=== PATIENT | male | born 1960 | race Caucasian/White ===

== ENCOUNTER 2019-02-23 03:22 | Emergency (ER) | payer SELFPAY ==
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
== END 2019-02-23 03:35 ==
LOC: MW.ED 03:22
DX: Z13.9 Encounter for screening, unspecified (principal)
CPT/HCPCS: 99283

== ENCOUNTER 2019-03-03 12:15 | Emergency (ER) | payer SELFPAY | END 2019-03-03 12:55 | disposition left against medical advice (07) | LOC: MW.ED 12:15 | DX: Z53.21 Procedure and treatment not carried out due to patient leaving prior to being seen by health care provider (principal) ==

== ENCOUNTER 2019-03-20 08:23 | Emergency (ER) | payer MEDICAID ==
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
== END 2019-03-20 09:32 | disposition home or self-care (01) ==
LOC: MW.ED 08:23
DX: I10 Essential (primary) hypertension (principal); E11.9 Type 2 diabetes mellitus without complications; F17.210 Nicotine dependence, cigarettes, uncomplicated; Z88.8 Allergy status to other drugs, medicaments and biological substances; Z79.4 Long term (current) use of insulin; Z79.899 Other long term (current) drug therapy
CPT/HCPCS: 82962; 99282

== ENCOUNTER 2019-04-26 21:13 | Emergency (ER) | payer MEDICAID ==
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
== END 2019-04-26 21:45 ==
LOC: MW.ED 21:13
DX: Z13.9 Encounter for screening, unspecified (principal); I10 Essential (primary) hypertension; E11.9 Type 2 diabetes mellitus without complications; E78.00 Pure hypercholesterolemia, unspecified; F25.9 Schizoaffective disorder, unspecified; F32.9 Major depressive disorder, single episode, unspecified; F41.9 Anxiety disorder, unspecified; Z79.4 Long term (current) use of insulin; Z79.899 Other long term (current) drug therapy; Z88.8 Allergy status to other drugs, medicaments and biological substances; Z53.29 Procedure and treatment not carried out because of patient's decision for other reasons
CPT/HCPCS: 99282

== ENCOUNTER 2019-04-27 14:23 | Emergency (ER) | payer MEDICAID ==
--- NOTE | 2019-04-27 15:40 | EDM.PDOC ---
ED HPI GENERAL MEDICAL PROBLEM - General Chief Complaint: Behavioral/Psych Stated Complaint: MENTAL HEALTH Time Seen by Provider: 04/27/19 15:32 Source of Information: Reports: Patient History Limitations: Reports: No Limitations - History of Present Illness INITIAL COMMENTS - FREE TEXT/NARRATIVE: HISTORY AND PHYSICAL: History of present illness: Patient is a 58-year-old male who presents to the ED today with law enforcement in court ordered transfer for concern of suicidal ideation with the plan. Patient states that he does have a plan and would follow forward with it today if he was if he was not in custody of law enforcement. Patient states he does not want to disclose his plan at this time. Patient states he has a history of schizoaffective disorder and major depression but ran out of medications 5 months ago and has not seen his provider to get refills. Patient states he has not made any suicide attempts in the past or at this time. Denies any other symptoms or concerns. Patient denies fever, chills, chest pain, shortness of breath, or cough. Denies headache, neck stiff ness, change in vision, syncope, or near syncope. Denies nausea, vomiting, abdominal pain, diarrhea, constipation, or dysuria. Has not noted any blood in urine or stool. Patient has been eating and drinking appropriately. Review of systems: As per history of present illness and below otherwise all systems reviewed and negative. Past medical history: As per history of present illness and as reviewed below otherwise noncontributory. Surgical history: As per history of present illness and as reviewed below otherwise noncontributory. Social history: See social history for further information Family history: As per history of present illness and as reviewed below otherwise noncontributory. Physical exam: General: Patient is alert, oriented, and in no acute distress. Patient sitting comfortably on exam table. HEENT: Atraumatic, normocephalic, pupils equal and reactive bilaterally, negative for conjunctival pallor or scleral icterus, mucous membranes moist, TMs normal bilaterally, throat clear, neck supple, nontender, trachea midline. No drooling or trismus noted. No meningeal signs. No hot potato voice noted. Lungs: Clear to auscultation, breath sounds equal bilaterally, chest nontender. Heart: S1S2, regular rate and rhythm without overt murmur Abdomen: Soft, nondistended, nontender. Negative for masses or hepatosplenomegaly. Negative for costovertebral tenderness. Pelvis: Stable nontender. Genitourinary: Deferred. Rectal: Deferred. Skin: Intact, warm, dry. No lesions or rashes noted. Extremities: Atraumatic, negative for cords or calf pain. Neurovascular unremarkable. Neuro: Awake, alert, oriented. Cranial nerves II through XII unremarkable. Cerebellum unremarkable. Motor and sensory unremarkable throughout. Exam nonfocal. Notes: [facility] is able to transport patient and has arranged a bed at [facility] in [place], [place]. Dr. La, [facility] consulted on patient and accepting of transfer. Diagnostics: CBC, CMP, UA, urine drug screen, EKG, TSH, magnesium, salicylate, acetaminophen , ethanol Therapeutics: None Impression: Suicidal ideation with plan Plan: 1. Transfer to [facility] to Dr. La Definitive disposition and diagnosis as appropriate pending reevaluation and review of above. Hip Pain Score (Numeric/FACES): 6 - Related Data Allergies Allergy/AdvReac Type Severity Reaction Status Date / Time midazolam [From Versed] Allergy Anaphylactic Verified 04/27/19 14:57 Shock Home Meds: Home Meds ARIPiprazole [Abilify] 15 mg PO DAILY 03/11/19 [History] DULoxetine [Cymbalta] 90 mg PO DAILY 03/11/19 [History] Gabapentin [Neurontin] 600 mg PO TID 03/11/19 [History] Hydrocodone/Acetaminophen [Hydrocodon-Acetaminophn 10-325] 1 tab PO Q6H PRN 07/29 [History] Insulin Glarg,Human.Rec.Analog [Lantus Solostar] 40 unit SUBCUT DAILY 03/11/19 [ History] Insulin Lispro [Insulin Lispro Kwikpen U-100] 0 unit SQ QID 03/11/19 [History] Lisinopril 20 mg PO DAILY 03/11/19 [History] Naltrexone 50 mg PO DAILY 03/11/19 [History] Omeprazole 20 mg PO ACBREAKFAST 03/11/19 [History] amLODIPine [Norvasc] 10 mg PO DAILY 03/11/19 [History] atorvaSTATin [Lipitor] 40 mg PO BEDTIME 03/11/19 [History] Insulin Glarg,Human.Rec.Analog [Lantus] 40 unit SUBCUT DAILY 30 Days #1 bottle 03/20/19 [Rx] Insulin Lispro [HumaLOG] 1 unit SQ ACBED 30 Days #30 unit 03/20/19 [Rx] Lancets/Blood Glucose Strips [Fora [id number] Strp-Lnct] 1 each QID 30 Days #120 combo..pkg 03/20/19 [Rx] Lisinopril 20 mg PO DAILY 30 Days #30 tablet 03/20/19 [Rx] Past Medical History HEENT History: Reports: Impaired Vision Cardiovascular History: Reports: Hypertension Neurological History: Reports: Brain Injury Psychiatric History: Reports: Anxiety, Hallucinations, Suicide Attempt, Schizophrenia, Suicidal Ideation Endocrine/Metabolic History: Reports: Diabetes, Type II - Infectious Disease History Infectious Disease History: Reports: Chicken Pox, Measles, Mumps - Past Surgical History GI Surgical History: Reports: Appendectomy, Cholecystectomy, Hernia, Abdominal Musculoskeletal Surgical History: Reports: Arthroscopic Knee, Shoulder Surgery Social & Family History - Family History Family Medical History: Noncontributory - Tobacco Use Smoking Status *Q: Current Every Day Smoker Years of Tobacco use: 40 Packs/Tins Daily: 0.5 - Caffeine Use Caffeine Use: Reports: Coffee - Recreational Drug Use Recreational Drug Use: No ED ROS GENERAL - Review of Systems Review Of Systems: Comprehensive ROS is negative, except as noted in HPI. ED EXAM, GENERAL - Physical Exam Exam: See Below (see dictation) Course - Vital Signs Last Recorded V/S: Last Vital Signs Temp 96.5 F 04/27/19 14:52 Pulse 106 H 04/27/19 14:52 Resp 18 04/27/19 14:52 BP 172/112 H 04/27/19 14:52 Pulse Ox 95 04/27/19 14:52 - Orders/Labs/Meds Orders: Active Orders 24 hr Category Date Time Status EKG Documentation Completion [RC] STAT Care 04/27/19 15:38 Active Labs: Laboratory Tests 04/27/19 04/27/19 04/27/19 Range/Units 15:14 15:14 16:01 WBC 9.47 (4.0-11.0) K/uL RBC 4.31 L (4.50-5.90) M/uL Hgb 14.6 (13.0-17.0) g/dL Hct 40.3 (38.0-50.0) % MCV 93.5 (80.0-98.0) fL MCH 33.9 H (27.0-32.0) pg MCHC 36.2 (31.0-37.0) g/dL RDW Std Deviation 44.3 (28.0-62.0) fl RDW Coeff of Thor 13 (11.0-15.0) % Plt Count 218 (150-400) K/uL MPV 9.70 (7.40-12.00) fL Neut % (Auto) 75.5 (48.0-80.0) % Lymph % (Auto) 17.3 (16.0-40.0) % [place] % (Auto) 6.3 (0.0-15.0) % Eos % (Auto) 0.4 (0.0-7.0) % Baso % (Auto) 0.5 (0.0-1.5) % Neut # (Auto) 7.1 H (1.4-5.7) K/uL Lymph # (Auto) 1.6 (0.6-2.4) K/uL [place] # (Auto) 0.6 (0.0-0.8) K/uL Eos # (Auto) 0.0 (0.0-0.7) K/uL Baso # (Auto) 0.1 (0.0-0.1) K/uL Nucleated RBC % 0.0 /100WBC Nucleated RBCs # 0 K/uL Sodium 134 L (136-148) mmol/L Potassium 3.4 L (3.5-5.1) mmol/L Chloride 97 L (98-107) mmol/L Carbon Dioxide 23.0 (21.0-32.0) mmol/L BUN 10 (7.0-18.0) mg/dL Creatinine 0.8 (0.8-1.3) mg/dL Est Cr Clr Drug Dosing 100.65 mL/min Estimated GFR (MDRD) > 60.0 ml/min Glucose 237 H (74-106) mg/dL POC Glucose (60-110) mg/dL Calcium 9.0 (8.5-10.1) mg/dL Magnesium 1.3 L (1.8-2.4) mg/dL Total Bilirubin 1.3 H (0.2-1.0) mg/dL AST 46 H (15-37) IU/L ALT 44 (14-63) IU/L Alkaline Phosphatase 68 (46-116) U/L Total Protein 7.7 (6.4-8.2) g/dL Albumin 3.9 (3.4-5.0) g/dL Globulin 3.8 (2.6-4.0) g/dL Albumin/Globulin Ratio 1.0 (0.9-1.6) TSH 3rd Generation 0.80 (0.36-3.74) uIU/mL Urine Color YELLOW Urine Appearance CLEAR Urine pH 6.5 (5.0-8.0) Ur Specific [place] <= 1.005 (1.001-1.035) Urine Protein NEGATIVE (NEGATIVE) mg/dL Urine Glucose (UA) 500 H (NEGATIVE) mg/dL Urine Ketones 15 H (NEGATIVE) mg/dL Urine Occult Blood NEGATIVE (NEGATIVE) Urine Nitrite NEGATIVE (NEGATIVE) Urine Bilirubin NEGATIVE (NEGATIVE) Urine Urobilinogen 0.2 (<2.0) EU/dL Ur Leukocyte Esterase NEGATIVE (NEGATIVE) Urine RBC 0-1 (0-2/HPF) Urine WBC 0-1 (0-5/HPF) Ur Epithelial Cells RARE (NONE-FEW) Urine Bacteria RARE (NEGATIVE) Salicylates 1.7 (0-20) mg/dL Urine Opiates Screen (NEGATIVE) Ur Oxycodone Screen (NEGATIVE) Urine Methadone Screen (NEGATIVE) Acetaminophen <2.0 ug/mL Ur Barbiturates Screen (NEGATIVE) Ur Phencyclidine Scrn (NEGATIVE) Ur Amphetamine Screen (NEGATIVE) U Methamphetamines Scrn (NEGATIVE) U Benzodiazepines Scrn (NEGATIVE) U Cocaine Metab Screen (NEGATIVE) U Marijuana (THC) Screen (NEGATIVE) Ethyl Alcohol < 3.0 mg/dL 04/27/19 04/27/19 Range/Units 16:01 16:06 WBC (4.0-11.0) K/uL RBC (4.50-5.90) M/uL Hgb (13.0-17.0) g/dL Hct (38.0-50.0) % MCV (80.0-98.0) fL MCH (27.0-32.0) pg MCHC (31.0-37.0) g/dL RDW Std Deviation (28.0-62.0) fl RDW Coeff of Thor (11.0-15.0) % Plt Count (150-400) K/uL MPV (7.40-12.00) fL Neut % (Auto) (48.0-80.0) % Lymph % (Auto) (16.0-40.0) % [place] % (Auto) (0.0-15.0) % Eos % (Auto) (0.0-7.0) % Baso % (Auto) (0.0-1.5) % Neut # (Auto) (1.4-5.7) K/uL Lymph # (Auto) (0.6-2.4) K/uL [place] # (Auto) (0.0-0.8) K/uL Eos # (Auto) (0.0-0.7) K/uL Baso # (Auto) (0.0-0.1) K/uL Nucleated RBC % /100WBC Nucleated RBCs # K/uL Sodium (136-148) mmol/L Potassium (3.5-5.1) mmol/L Chloride (98-107) mmol/L Carbon Dioxide (21.0-32.0) mmol/L BUN (7.0-18.0) mg/dL Creatinine (0.8-1.3) mg/dL Est Cr Clr Drug Dosing mL/min Estimated GFR (MDRD) ml/min Glucose (74-106) mg/dL POC Glucose 191 H (60-110) mg/dL Calcium (8.5-10.1) mg/dL Magnesium (1.8-2.4) mg/dL Total Bilirubin (0.2-1.0) mg/dL AST (15-37) IU/L ALT (14-63) IU/L Alkaline Phosphatase (46-116) U/L Total Protein (6.4-8.2) g/dL Albumin (3.4-5.0) g/dL Globulin (2.6-4.0) g/dL Albumin/Globulin Ratio (0.9-1.6) TSH 3rd Generation (0.36-3.74) uIU/mL Urine Color Urine Appearance Urine pH (5.0-8.0) Ur Specific [place] (1.001-1.035) Urine Protein (NEGATIVE) mg/dL Urine Glucose (UA) (NEGATIVE) mg/dL Urine Ketones (NEGATIVE) mg/dL Urine Occult Blood (NEGATIVE) Urine Nitrite (NEGATIVE) Urine Bilirubin (NEGATIVE) Urine Urobilinogen (<2.0) EU/dL Ur Leukocyte Esterase (NEGATIVE) Urine RBC (0-2/HPF) Urine WBC (0-5/HPF) Ur Epithelial Cells (NONE-FEW) Urine Bacteria (NEGATIVE) Salicylates (0-20) mg/dL Urine Opiates Screen NEGATIVE (NEGATIVE) Ur Oxycodone Screen NEGATIVE (NEGATIVE) Urine Methadone Screen NEGATIVE (NEGATIVE) Acetaminophen ug/mL Ur Barbiturates Screen NEGATIVE (NEGATIVE) Ur Phencyclidine Scrn NEGATIVE (NEGATIVE) Ur Amphetamine Screen NEGATIVE (NEGATIVE) U Methamphetamines Scrn NEGATIVE (NEGATIVE) U Benzodiazepines Scrn NEGATIVE (NEGATIVE) U Cocaine Metab Screen NEGATIVE (NEGATIVE) U Marijuana (THC) Screen NEGATIVE (NEGATIVE) Ethyl Alcohol mg/dL Departure - Departure Time of Disposition: 17:12 Disposition: DC/Tfer to Psych Hosp/Unit [facility] Clinical Impression: Suicidal ideation - Discharge Information Referrals: Pedro Suarez MD [Primary Care Provider] - Forms: ED Department Discharge - My Orders Last 24 Hours: My Active Orders 04/27/19 15:38 EKG Documentation Completion [RC] STAT - Assessment/Plan Last 24 Hours: My Active Orders 04/27/19 15:38 EKG Documentation Completion [RC] STAT
[2019-04-27 16:18] LABS: ACETAMINOPHEN <2.0 ug/mL; BLOOD UREA NITROGEN,BUN 10 mg/dL (7.0-18.0); CHLORIDE,CL 97 mmol/L (98-107); GLUCOSE RANDOM 237 mg/dL (74-106); POTASSIUM,K 3.4 mmol/L (3.5-5.1); SODIUM,NA 134 mmol/L (136-148)
== END 2019-04-27 17:53 ==
LOC: MW.ED 14:23
DX: R45.851 Suicidal ideations (principal); I10 Essential (primary) hypertension; F41.9 Anxiety disorder, unspecified; E11.9 Type 2 diabetes mellitus without complications; F17.210 Nicotine dependence, cigarettes, uncomplicated; Z88.8 Allergy status to other drugs, medicaments and biological substances; Z79.4 Long term (current) use of insulin; Z79.899 Other long term (current) drug therapy
CPT/HCPCS: 36415; 80053; 80305-QW; 81001; 82962; 83735; 84443; 85025; 93005; 99285; 99285-25; G0480

== ENCOUNTER 2019-07-13 10:06 | Observation (INO) | payer MEDICAID ==
--- NOTE | 2019-07-13 10:19 | EDM.PDOC ---
ED HPI GENERAL MEDICAL PROBLEM - General Stated Complaint: INFECTION ON FOOT Time Seen by Provider: 07/13/19 10:12 Source of Information: Reports: Patient History Limitations: Reports: No Limitations - History of Present Illness INITIAL COMMENTS - FREE TEXT/NARRATIVE: HISTORY AND PHYSICAL: History of present illness: Patient is a 59-year-old male who presents to the emergency room with complaints of an open wound to his left anterior foot. He states he was in [place] in April 2019 for some mental health/drug and alcohol abuse treatment programming when he developed the foot ulcer. When he was discharged he did follow-up and establish care with Dr. Suarez at our clinic. Patient has been doing home care remedies and debriding. He reports having completed several courses of antibiotics for this foot ulcer on and off for the past months. He states over the past few days the wound has become painful to touch, surrounding erythema and is concerned it is infected. He has been using topical lidocaine for pain management. Patient denies any fever, chills, headache, change in vision, syncope or near syncope. Denies any chest pain, back pain, shortness of breath or cough. Denies any abdominal pain, nausea, vomiting, diarrhea, constipation or dysuria. Patient has been eating and drinking appropriately. Patient has a past medical history of hypertension, type 2 diabetes -insulin- dependent, and schizophrenia. Review of systems: As per history of present illness and below otherwise all systems reviewed and negative. Past medical history: As per history of present illness and as reviewed below otherwise noncontributory. Surgical history: As per history of present illness and as reviewed below otherwise noncontributory. Social history: See social history for further information Family history: As per history of present illness and as reviewed below otherwise noncontributory. Physical exam: General: Well developed and well-nourished 59-year-old male. Alert and oriented. Nontoxic-appearing and in no acute distress. HEENT: Atraumatic, normocephalic, pupils equal and reactive bilaterally, negative for conjunctival pallor or scleral icterus, mucous membranes moist, nontender, trachea midline. No drooling or trismus noted. No meningeal signs. No hot potato voice noted. Lungs: Clear to auscultation, breath sounds equal bilaterally, chest nontender. Heart: S1S2, regular rate and rhythm without overt murmur Abdomen: Soft, nondistended, nontender. Negative for masses or hepatosplenomegaly. Negative for costovertebral tenderness. Skin: 5 cm x 4 cm "T" shaped open wound to the anterior left proximal foot going up the ankle. Surrounding erythema of the open wound with granulated tissue. Remaining skin intact, warm, dry. No other lesions or rashes noted. Extremities: See skin for details, moves all extremities per self without difficulty or deficits, negative for cords or calf pain. Neurovascular unremarkable. Neuro: Awake, alert, oriented. Cranial nerves II through XII unremarkable. Cerebellum unremarkable. Motor and sensory unremarkable throughout. Exam nonfocal. Notes: Patient would benefit from IV antibiotics. Patient is agreeable to plan of care. Dr Segura was consulted on this case and is agreeable to keeping this patient for further care and management. He has been down here to evaluate the patient. Diagnostics: CBC, CMP, wound culture, blood culture, ankle x-ray Therapeutics: NS, Morphine, Vancomycin Impression: Diabetic foot infection Plan: Patient admission to [facility] Definitive disposition and diagnosis as appropriate pending reevaluation and review of above. Duration: Chronic (Acute on chronic) Location: Reports: Lower Extremity, Left - Related Data Allergies Allergy/AdvReac Type Severity Reaction Status Date / Time midazolam [From Versed] Allergy Anaphylactic Verified 04/27/19 14:57 Shock Home Meds: Home Meds ARIPiprazole [Abilify] 15 mg PO DAILY 03/11/19 [History] DULoxetine [Cymbalta] 90 mg PO DAILY 03/11/19 [History] Gabapentin [Neurontin] 600 mg PO TID 03/11/19 [History] Insulin Glarg,Human.Rec.Analog [Lantus Solostar] 40 unit SUBCUT DAILY 03/11/19 [ History] Lisinopril 20 mg PO DAILY 03/11/19 [History] Omeprazole 20 mg PO ACBREAKFAST 03/11/19 [History] Insulin Lispro [HumaLOG] 1 unit SQ ACBED 30 Days #30 unit 03/20/19 [Rx] Past Medical History HEENT History: Reports: Impaired Vision Cardiovascular History: Reports: Hypertension Neurological History: Reports: Brain Injury Psychiatric History: Reports: Anxiety, Hallucinations, Suicide Attempt, Schizophrenia, Suicidal Ideation Endocrine/Metabolic History: Reports: Diabetes, Type II - Infectious Disease History Infectious Disease History: Reports: Chicken Pox, Measles, Mumps - Past Surgical History GI Surgical History: Reports: Appendectomy, Cholecystectomy, Hernia, Abdominal Musculoskeletal Surgical History: Reports: Arthroscopic Knee, Shoulder Surgery Social & Family History - Family History Family Medical History: Noncontributory - Caffeine Use Caffeine Use: Reports: Coffee ED ROS GENERAL - Review of Systems Review Of Systems: Comprehensive ROS is negative, except as noted in HPI. ED EXAM, SKIN/RASH Exam: See Below (See dictation) Course - Vital Signs Last Recorded V/S: Last Vital Signs Temp 97.7 F 07/13/19 10:19 Pulse 108 H 07/13/19 11:37 Resp 16 07/13/19 11:37 BP 162/96 H 07/13/19 11:37 Pulse Ox 94 L 07/13/19 11:37 - Orders/Labs/Meds Orders: Active Orders 24 hr Category Date Time Status Admission Status [Patient Status] [ADT] Stat ADT 07/13/19 11:37 Ordered COMPREHENSIVE METABOLIC PN,CMP [CHEM] Stat Lab 07/13/19 10:55 Received CULTURE BLOOD [BC] Stat Lab 07/13/19 10:34 Results CULTURE BLOOD [BC] Stat Lab 07/13/19 10:55 Results CULTURE WOUND [RM] Stat Lab 07/13/19 10:25 Received Sodium Chloride 0.9% [Normal Saline] 1,000 ml Med 07/13/19 10:28 Active IV STAT Sodium Chloride 0.9% [Saline Flush] Med 07/13/19 10:20 Active 10 ml FLUSH ASDIRECTED PRN Sodium Chloride 0.9% [Saline Flush] Med 07/13/19 10:20 Active 2.5 ml FLUSH ASDIRECTED PRN Vancomycin 1 gm Med 07/13/19 11:19 Active Sodium Chloride 0.9% [Normal Saline (AdvBag)] 250 ml IV ONETIME Blood Culture x2 Reflex Set [OM.PC] Stat Oth 07/13/19 10:20 Ordered Saline Lock Insert [OM.PC] Stat Oth 07/13/19 10:20 Ordered Medication Orders Sodium Chloride (Normal Saline) 1,000 mls @ 125 mls/hr IV STAT ONE Stop: 07/13/19 18:27 Last Admin: 07/13/19 10:53 Dose: 125 mls/hr Vancomycin HCl 1 gm/ Sodium (Chloride) 250 mls @ 166 mls/hr IV ONETIME ONE Stop: 07/13/19 12:49 Last Admin: 07/13/19 11:32 Dose: 166 mls/hr Sodium Chloride (Saline Flush) 10 ml FLUSH ASDIRECTED PRN PRN Reason: Keep Vein Open Last Admin: 07/13/19 10:53 Dose: 10 ml Sodium Chloride (Saline Flush) 2.5 ml FLUSH ASDIRECTED PRN PRN Reason: Keep Vein Open Last Admin: 07/13/19 10:53 Dose: 2.5 ml Labs: Laboratory Tests 07/13/19 Range/Units 10:55 WBC 7.17 (4.0-11.0) K/uL RBC 4.09 L (4.50-5.90) M/uL Hgb 13.7 (13.0-17.0) g/dL Hct 38.7 (38.0-50.0) % MCV 94.6 (80.0-98.0) fL MCH 33.5 H (27.0-32.0) pg MCHC 35.4 (31.0-37.0) g/dL RDW Std Deviation 42.2 (28.0-62.0) fl RDW Coeff of Thor 12 (11.0-15.0) % Plt Count 275 (150-400) K/uL MPV 9.50 (7.40-12.00) fL Neut % (Auto) 65.8 (48.0-80.0) % Lymph % (Auto) 22.3 (16.0-40.0) % [place] % (Auto) 8.4 (0.0-15.0) % Eos % (Auto) 2.9 (0.0-7.0) % Baso % (Auto) 0.6 (0.0-1.5) % Neut # (Auto) 4.7 (1.4-5.7) K/uL Lymph # (Auto) 1.6 (0.6-2.4) K/uL [place] # (Auto) 0.6 (0.0-0.8) K/uL Eos # (Auto) 0.2 (0.0-0.7) K/uL Baso # (Auto) 0.0 (0.0-0.1) K/uL Nucleated RBC % 0.0 /100WBC Nucleated RBCs # 0 K/uL Meds: Medications Generic Name Dose Route Start Last Admin Trade Name Freq PRN Reason Stop Dose Admin Sodium Chloride 1,000 mls @ 125 mls/hr 07/13/19 10:28 07/13/19 10:53 Normal Saline IV 07/13/19 18:27 125 mls/hr STAT ONE Administration Vancomycin HCl 1 gm/ Sodium 250 mls @ 166 mls/hr 07/13/19 11:19 07/13/19 11: 32 Chloride IV 07/13/19 12:49 166 mls/hr ONETIME ONE Administration Sodium Chloride 10 ml 07/13/19 10:20 07/13/19 10:53 Saline Flush FLUSH 10 ml ASDIRECTED PRN Administration Keep Vein Open Sodium Chloride 2.5 ml 07/13/19 10:20 07/13/19 10:53 Saline Flush FLUSH 2.5 ml ASDIRECTED PRN Administration Keep Vein Open Discontinued Medications Generic Name Dose Route Start Last Admin Trade Name Kyleq PRN Reason Stop Dose Admin Morphine Sulfate 2 mg 07/13/19 11:15 07/13/19 11:32 Morphine IVPUSH 07/13/19 11:16 2 mg ONETIME ONE Administration Departure - Departure Time of Disposition: 11:39 Disposition: Refer to Observation Clinical Impression: Diabetic infection of left foot - Discharge Information Referrals: Pedro Suarez MD [Primary Care Provider] - Sepsis Event Note - Focused Exam Vital Signs: Vital Signs Temp Pulse Resp BP Pulse Ox 07/13/19 11:37 108 H 16 162/96 H 94 L 07/13/19 10:19 97.7 F 114 H 16 164/101 H 97 Date Exam was Performed: 07/13/19 Time Exam was Performed: 11:38 - My Orders Last 24 Hours: My Active Orders 07/13/19 10:20 Sodium Chloride 0.9% [Saline Flush] 10 ml FLUSH ASDIRECTED PRN Sodium Chloride 0.9% [Saline Flush] 2.5 ml FLUSH ASDIRECTED PRN Blood Culture x2 Reflex Set [OM.PC] Stat Saline Lock Insert [OM.PC] Stat 07/13/19 10:25 CULTURE WOUND [RM] Stat 07/13/19 10:28 Sodium Chloride 0.9% [Normal Saline] 1,000 ml IV STAT 07/13/19 10:34 CULTURE BLOOD [BC] Stat 07/13/19 10:55 COMPREHENSIVE METABOLIC PN,CMP [CHEM] Stat CULTURE BLOOD [BC] Stat 07/13/19 11:19 Vancomycin 1 gm Sodium Chloride 0.9% [Normal Saline (AdvBag)] 250 ml IV ONETIME 07/13/19 11:37 Admission Status [Patient Status] [ADT] Stat - Assessment/Plan Last 24 Hours: My Active Orders 07/13/19 10:20 Sodium Chloride 0.9% [Saline Flush] 10 ml FLUSH ASDIRECTED PRN Sodium Chloride 0.9% [Saline Flush] 2.5 ml FLUSH ASDIRECTED PRN Blood Culture x2 Reflex Set [OM.PC] Stat Saline Lock Insert [OM.PC] Stat 07/13/19 10:25 CULTURE WOUND [RM] Stat 07/13/19 10:28 Sodium Chloride 0.9% [Normal Saline] 1,000 ml IV STAT 07/13/19 10:34 CULTURE BLOOD [BC] Stat 07/13/19 10:55 COMPREHENSIVE METABOLIC PN,CMP [CHEM] Stat CULTURE BLOOD [BC] Stat 07/13/19 11:19 Vancomycin 1 gm Sodium Chloride 0.9% [Normal Saline (AdvBag)] 250 ml IV ONETIME 07/13/19 11:37 Admission Status [Patient Status] [ADT] Stat
[2019-07-13] MEDS ORDERED: Sodium Chloride 0.9% 2.5 ML Syringe FLUSH PRN (10:20)
[2019-07-13] MEDS ORDERED: Sodium Chloride 0.9% 10 ML Syringe FLUSH PRN (10:20)
[2019-07-13] MEDS ORDERED: Sodium Chloride 0.9% 1,000 ML IV ONE (10:28)
[2019-07-13] MEDS ORDERED: Morphine 2 MG/ML Syringe IVPUSH ONE (11:15)
--- NOTE | 2019-07-13 11:19 | CR ---
Left ankle: 3 views left ankle were obtained. Comparison: No prior left ankle exam. Ankle mortise is symmetric. No fracture, dislocation or other bony abnormality is seen. Soft tissue wound is noted anteriorly within the ankle. No focal erosive change is seen within the adjacent osseous structures to indicate osteomyelitis. Impression: 1. Anterior soft tissue wound. 2. No bony abnormality is identified. Diagnostic code #2 This report was dictated in [place] Standard Time
[2019-07-13 11:37] LABS: BLOOD UREA NITROGEN,BUN 13 mg/dL (7.0-18.0); CARBON DIOXIDE,CO2 24.1 mmol/L (21.0-32.0); CHLORIDE,CL 101 mmol/L (98-107); GLUCOSE RANDOM 284 mg/dL (74-106); SODIUM,NA 136 mmol/L (136-148)
[2019-07-13] MEDS ORDERED: Acetaminophen 325 MG Tab PO PRN (12:09)
[2019-07-13] MEDS ORDERED: Ondansetron 4 MG/2 ML SDV IVPUSH PRN (12:09)
[2019-07-13 12:28] LABS: HEMOGLOBIN A1C 7.9 % (4.5-6.2)
--- NOTE | 2019-07-13 13:18 | PCM.HP.2 ---
H&P History of Present Illness - General Date of Service: 07/13/19 Admit Problem/Dx: Admission Diagnosis/Problem Admission Diagnosis/Problem Diabetic foot infection - History of Present Illness Initial Comments - Free Text/Narative: The patient is a 59 year old male with PMH of DMII, dissociative disorder, peripheral neuropathy, and HTN with presented to the ER with ongoing left foot/ ankle wound. Patient reports he had a dissociative episode back in April 2019 where he went missing for 4 days, unaware of where he went. He ended up getting picked up by police in [place] and taken to hospital. In the hospital he was found to have a wound on the top of his left foot. He has no idea how he got it. He was seen by wound care and started on oral antibiotics. He has been on three different rounds of oral antibiotics- amoxicillin, Keflex, and Cipro. He reports as soon as he finishes the course, the wound gets worse. Wound care tried to debride it in office but it was too painful. Hasn't seen surgeon. Reports overall better compared to initial infection. Denies fever/ chills, chest pain, shortness of breath, abdominal pain, nausea/vomiting, or diarrhea. Was recently discharged from rehab in [place] for alcohol abuse. Hasn' t been drinking since discharge. In the ER, no white count, CMP wnl except elevated glucose, x-ray did not see bony involvement. Started on Vancomycin. Given IVF and morphine. Blood cultures and wound cultures obtained in ER. PCP- Dr. Suarez Left Foot Pain Score (Numeric/FACES): 8 - Related Data Allergies/Adverse Reactions: Allergies Allergy/AdvReac Type Severity Reaction Status Date / Time midazolam [From Versed] Allergy Anaphylactic Verified 07/13/19 13:31 Shock Home Medications: Home Meds ARIPiprazole [Abilify] 15 mg PO DAILY 03/11/19 [History] DULoxetine [Cymbalta] 90 mg PO DAILY 03/11/19 [History] Insulin Glarg,Human.Rec.Analog [Lantus Solostar] 40 unit SUBCUT DAILY 03/11/19 [ History] RX: Gabapentin [Neurontin] 600 mg PO TID 03/11/19 [History] RX: Lisinopril 20 mg PO DAILY 03/11/19 [History] RX: Omeprazole 20 mg PO ACBREAKFAST 03/11/19 [History] Insulin Lispro [HumaLOG] 1 unit SQ ACBED 30 Days #30 unit 03/20/19 [Rx] Past Medical History HEENT History: Reports: Impaired Vision Cardiovascular History: Reports: Hypertension Respiratory History: Reports: None Gastrointestinal History: Reports: None Genitourinary History: Reports: None Musculoskeletal History: Reports: None Neurological History: Reports: Brain Injury Psychiatric History: Reports: Anxiety, Hallucinations, Suicide Attempt, Schizophrenia, Suicidal Ideation Endocrine/Metabolic History: Reports: Diabetes, Type II Hematologic History: Reports: None Immunologic History: Reports: None Oncologic (Cancer) History: Reports: None Dermatologic History: Reports: None - Infectious Disease History Infectious Disease History: Reports: Chicken Pox, Measles, Mumps - Past Surgical History GI Surgical History: Reports: Appendectomy, Cholecystectomy, Hernia, Abdominal Musculoskeletal Surgical History: Reports: Arthroscopic Knee, Shoulder Surgery Social & Family History - Family History Family Medical History: Noncontributory - Tobacco Use Smoking Status *Q: Current Every Day Smoker Years of Tobacco use: 40 Packs/Tins Daily: 1 - Caffeine Use Caffeine Use: Reports: Coffee - Recreational Drug Use Recreational Drug Use: No H&P Review of Systems - Review of Systems: Review Of Systems: See Below General: Reports: No Symptoms HEENT: Reports: No Symptoms Pulmonary: Reports: No Symptoms Cardiovascular: Reports: No Symptoms Gastrointestinal: Reports: No Symptoms Genitourinary: Reports: No Symptoms Musculoskeletal: Reports: No Symptoms Skin: Reports: Wound Psychiatric: Reports: No Symptoms Exam - Exam Exam: See Below - Vital Signs Vital Signs: Last Vital Signs Temp 97.7 F 07/13/19 10:19 Pulse 108 H 07/13/19 11:37 Resp 16 07/13/19 11:37 BP 162/96 H 07/13/19 11:37 Pulse Ox 94 L 07/13/19 11:37 Weight: 90.718 kg - Exam General: Alert, Oriented, Cooperative HEENT: Conjunctiva Clear, EOMI, Mucosa Moist & [place], Posterior Pharynx Clear, Pupils Equal, Pupils Reactive Lungs: Clear to Auscultation, Normal Respiratory Effort Cardiovascular: Regular Rate, Regular Rhythm GI/Abdominal Exam: Normal Bowel Sounds, Soft, Non-Tender, No Distention Extremities: No Pedal Edema Skin: Wound (irregular shape, clear borders, granulation tissue dorsum foot near ankle) Neurological: Cranial Nerves Intact Neuro Extensive - Mental Status: Alert, Oriented x3, Normal Mood/Affect Psychiatric: Alert, Normal Affect, Normal Mood - Patient Data Lab Results Last 24 hrs: Laboratory Results - last 24 hr 07/13/19 07/13/19 07/13/19 Range/Units 10:55 10:55 10:55 WBC 7.17 (4.0-11.0) K/uL RBC 4.09 L (4.50-5.90) M/uL Hgb 13.7 (13.0-17.0) g/dL Hct 38.7 (38.0-50.0) % MCV 94.6 (80.0-98.0) fL MCH 33.5 H (27.0-32.0) pg MCHC 35.4 (31.0-37.0) g/dL RDW Std Deviation 42.2 (28.0-62.0) fl RDW Coeff of Thor 12 (11.0-15.0) % Plt Count 275 (150-400) K/uL MPV 9.50 (7.40-12.00) fL Neut % (Auto) 65.8 (48.0-80.0) % Lymph % (Auto) 22.3 (16.0-40.0) % [place] % (Auto) 8.4 (0.0-15.0) % Eos % (Auto) 2.9 (0.0-7.0) % Baso % (Auto) 0.6 (0.0-1.5) % Neut # (Auto) 4.7 (1.4-5.7) K/uL Lymph # (Auto) 1.6 (0.6-2.4) K/uL [place] # (Auto) 0.6 (0.0-0.8) K/uL Eos # (Auto) 0.2 (0.0-0.7) K/uL Baso # (Auto) 0.0 (0.0-0.1) K/uL Nucleated RBC % 0.0 /100WBC Nucleated RBCs # 0 K/uL Sodium 136 (136-148) mmol/L Potassium 4.0 (3.5-5.1) mmol/L Chloride 101 (98-107) mmol/L Carbon Dioxide 24.1 (21.0-32.0) mmol/L BUN 13 (7.0-18.0) mg/dL Creatinine 0.9 (0.8-1.3) mg/dL Est Cr Clr Drug Dosing 85.50 mL/min Estimated GFR (MDRD) > 60.0 ml/min Glucose 284 H (74-106) mg/dL Hemoglobin A1c 7.9 H (4.5-6.2) % Calcium 9.1 (8.5-10.1) mg/dL Total Bilirubin 0.3 (0.2-1.0) mg/dL AST 13 L (15-37) IU/L ALT 20 (14-63) IU/L Alkaline Phosphatase 97 (46-116) U/L Total Protein 7.4 (6.4-8.2) g/dL Albumin 3.4 (3.4-5.0) g/dL Globulin 4.0 (2.6-4.0) g/dL Albumin/Globulin Ratio 0.9 (0.9-1.6) Result Diagrams: 07/13/19 10:55 07/13/19 10:55 [place] Results Last 24 hrs: Microbiology 07/13/19 10:55 Anaerobic Blood Culture - Final Blood - Venous - Lab Draw 07/13/19 10:34 Anaerobic Blood Culture - Final Blood - Venous Sepsis Event Note - Evaluation Sepsis Screening Result: No Definite Risk - Focused Exam Vital Signs: Vital Signs Temp Pulse Resp BP Pulse Ox 07/13/19 11:37 108 H 16 162/96 H 94 L 07/13/19 10:19 97.7 F 114 H 16 164/101 H 97 Date Exam was Performed: 07/13/19 Time Exam was Performed: 15:34 Problem List Initiated/Reviewed/Updated: Yes Orders Last 24hrs: Active Orders 24 hr Category Date Time Status Admission Status [Patient Status] [ADT] Stat ADT 07/13/19 11:37 Active Accu Check [Blood Glucose Check, Bedside] [RC] Care 07/13/19 12:11 Active WITHMEALSANDBED Intake and Output [RC] Q12H Care 07/13/19 12:09 Active Vital Signs [RC] PER UNIT ROUTINE Care 07/13/19 12:09 Active [employer] [employer] Diet [DIET] Diet 07/13/19 Dinner Active Foot wo Cont Lt [MR] Routine Exams 07/13/19 12:09 Ordered CULTURE BLOOD [BC] Stat Lab 07/13/19 10:34 Results CULTURE BLOOD [BC] Stat Lab 07/13/19 10:55 Results CULTURE WOUND [RM] Stat Lab 07/13/19 10:25 Received VANCOMYCIN TROUGH [CHEM] Timed Lab 07/15/19 11:00 Ordered ARIPiprazole [Abilify] Med 07/14/19 09:00 Active 15 mg PO DAILY Acetaminophen [Tylenol] Med 07/13/19 12:09 Active 650 mg PO Q4H PRN DULoxetine [Cymbalta] Med 07/14/19 09:00 Active 90 mg PO DAILY Gabapentin [Neurontin] Med 07/13/19 14:00 Active 600 mg PO TID Insulin Aspart [NovoLOG] Med 07/13/19 17:30 Active See Protocol SUBCUT WITHMEALSANDBED Insulin Glarg,Human.Rec.Analog [LantUS Solostar] Med 07/14/19 09:00 Active 40 units SUBCUT DAILY Morphine Med 07/13/19 12:09 Active 1 mg IVPUSH Q4H PRN Omeprazole Med 07/14/19 07:30 Active 20 mg PO ACBREAKFAST Ondansetron [Zofran] Med 07/13/19 12:09 Active 4 mg IVPUSH Q4H PRN Pharmacy to Dose - Vancomycin Med 07/13/19 12:15 Active 1 dose .XX ASDIRECTED Sodium Chloride 0.9% [Normal Saline] 1,000 ml Med 07/13/19 10:28 Active IV STAT Sodium Chloride 0.9% [Saline Flush] Med 07/13/19 10:20 Active 10 ml FLUSH ASDIRECTED PRN Sodium Chloride 0.9% [Saline Flush] Med 07/13/19 10:20 Active 2.5 ml FLUSH ASDIRECTED PRN Vancomycin 1.25 gm Med 07/13/19 23:30 Active Sodium Chloride 0.9% [Normal Saline (AdvBag)] 250 ml IV Q12H lisinopriL [Prinivil] Med 07/14/19 09:00 Active 20 mg PO DAILY oxyCODONE Med 07/13/19 12:09 Active 5 mg PO Q4H PRN Blood Culture x2 Reflex Set [OM.PC] Stat Oth 07/13/19 10:20 Ordered Saline Lock Insert [OM.PC] Stat Oth 07/13/19 10:20 Ordered Resuscitation Status Routine Resus Stat 07/13/19 12:09 Ordered Medication Orders Acetaminophen (Tylenol) 650 mg PO Q4H PRN PRN Reason: Pain/Fever Aripiprazole (Abilify) 15 mg PO DAILY [facility] Duloxetine HCl (Cymbalta) 90 mg PO DAILY JAZMIN Gabapentin (Neurontin) 600 mg PO TID [facility] Sodium Chloride (Normal Saline) 1,000 mls @ 125 mls/hr IV STAT ONE Stop: 07/13/19 18:27 Last Admin: 07/13/19 10:53 Dose: 125 mls/hr Vancomycin HCl 1.25 gm/ Sodium (Chloride) 250 mls @ 166.667 mls/hr IV Q12H [facility] Insulin Aspart (Novolog) 0 unit SUBCUT WITHMEALSANDBED JAZMIN; Protocol Insulin Glargine (Lantus Solostar) 40 units SUBCUT DAILY [facility] Lisinopril (Prinivil) 20 mg PO DAILY [facility] Morphine Sulfate (Morphine) 1 mg IVPUSH Q4H PRN PRN Reason: Pain (severe 7-10) Omeprazole (Omeprazole) 20 mg PO ACBREAKFAST [facility] Ondansetron HCl (Zofran) 4 mg IVPUSH Q4H PRN PRN Reason: Nausea/Vomiting Oxycodone HCl (Oxycodone) 5 mg PO Q4H PRN PRN Reason: Pain (moderate 4-6) Sodium Chloride (Saline Flush) 10 ml FLUSH ASDIRECTED PRN PRN Reason: Keep Vein Open Last Admin: 07/13/19 10:53 Dose: 10 ml Sodium Chloride (Saline Flush) 2.5 ml FLUSH ASDIRECTED PRN PRN Reason: Keep Vein Open Last Admin: 07/13/19 10:53 Dose: 2.5 ml Vancomycin HCl (Pharmacy To Dose - Vancomycin) 1 dose .XX ASDIRECTED [facility] Assessment/Plan Comment:: 1. Admit for observation 2. Code status- full 3. Vitals per routine 4. I/Os per routine 5. Diet- Diabetic 6. DVT with Lovenox 7. Diabetic foot ulcer- continue Vancomycin. MRI pending to look for signs of osteomylitis. Consult wound care. WC and BC pending. Pain control with tylenol, oxycodone and morphine. 8. DMII- HA1c is 7.9. Continue home Lantus [address] on sliding scale and accuchecks 9. HTN, Dissociative disorder- continue home meds.
[2019-07-13] MEDS: Gabapentin 300 MG Cap PO SCH ×2 (13:43→22:17)
[2019-07-13] MEDS: oxyCODONE 5 MG Tab PO PRN ×3 (14:03→22:20)
[2019-07-13] MEDS: Nicotine 14 MG/24 Hr Patch TRDERM SCH (14:04)
--- NOTE | 2019-07-13 14:27 | MR ---
INDICATION : Swelling dorsum of the foot. TECHNIQUE: Axial PD and PD fat-sat, sagittal PD and STIR and coronal PD and PD fat-sat sequences left mid and forefoot. FINDINGS: Some motion degrades image quality. No focal marrow signal abnormality for osteomyelitis. No organized fluid in the soft tissues. Subcutaneous edema and dorsal skin thickening through the midfoot and forefoot to the toes. Minor edema throughout the soft tissues of the toes, particularly the 2nd. No tenosynovitis. Bifid 1st metatarsal sesamoid with edema in the distal ossicle. No degenerative joint change in the forefoot or midfoot. IMPRESSION: 1. Nonspecific dorsal subcutaneous edema and skin thickening. Clinical correlation for cellulitis. No abscess, septic arthritis or osteomyelitis. 2. Likely degenerative changes of the 1st metatarsal medial sesamoid which appears to be bifid. 3. Motion degrades image quality and diagnostic sensitivity Dictated by Alonso Benjamin MD @ Jul 13 2019 2:26PM Signed by Dr. Alonso Benjamin @ Jul 13 2019 2:26PM
[2019-07-13] MEDS: Morphine 2 MG/ML Syringe IVPUSH PRN ×2 (15:42→20:02)
[2019-07-13] MEDS: Enoxaparin 40 MG/0.4 ML Syringe SUBCUT SCH (15:55)
[2019-07-13] MEDS: Insulin Aspart 100 Units/ML 3 ML Pen SUBCUT SCH ×2 (17:45→22:43)
[2019-07-13] MEDS ORDERED: Insulin Aspart 100 Units/ML 3 ML Pen SUBCUT ONE (22:11)
[2019-07-14] MEDS: Morphine 2 MG/ML Syringe IVPUSH PRN ×4 (00:33→13:40)
[2019-07-14] MEDS: oxyCODONE 5 MG Tab PO PRN ×5 (02:48→20:39)
[2019-07-14] MEDS: Omeprazole 20 MG Cap.CR PO SCH (07:14)
[2019-07-14] MEDS: Gabapentin 300 MG Cap PO SCH ×3 (07:14→21:18)
[2019-07-14] MEDS: Insulin Aspart 100 Units/ML 3 ML Pen SUBCUT SCH ×4 (08:08→21:16)
--- NOTE | 2019-07-14 08:34 | PCM.PN ---
- General Info Date of Service: 07/14/19 Subjective Update: Patient reports he is feeling fine, afebrile, tolerating oral diet. - Review of Systems General: Reports: No Symptoms HEENT: Reports: No Symptoms Pulmonary: Reports: No Symptoms Cardiovascular: Reports: No Symptoms Gastrointestinal: Reports: No Symptoms Genitourinary: Reports: No Symptoms Musculoskeletal: Reports: Foot Pain Skin: Reports: Other (wound- no pus) Neurological: Reports: No Symptoms Psychiatric: Reports: No Symptoms - Patient Data Vitals - Most Recent: Last Vital Signs Temp 97.7 F 07/14/19 07:25 Pulse 88 07/14/19 07:25 Resp 16 07/14/19 07:25 BP 140/90 07/14/19 07:25 Pulse Ox 94 L 07/14/19 07:25 Weight - Most Recent: 90.718 kg I&O - Last 24 Hours: Intake & Output 07/13/19 07/14/19 07/14/19 22:59 06:59 14:59 Intake Total 200 1000 Output Total 400 1150 Balance -200 -150 Lab Results Last 24 Hours: Laboratory Results - last 24 hr 07/13/19 07/13/19 07/13/19 Range/Units 10:55 10:55 10:55 WBC 7.17 (4.0-11.0) K/uL RBC 4.09 L (4.50-5.90) M/uL Hgb 13.7 (13.0-17.0) g/dL Hct 38.7 (38.0-50.0) % MCV 94.6 (80.0-98.0) fL MCH 33.5 H (27.0-32.0) pg MCHC 35.4 (31.0-37.0) g/dL RDW Std Deviation 42.2 (28.0-62.0) fl RDW Coeff of Thor 12 (11.0-15.0) % Plt Count 275 (150-400) K/uL MPV 9.50 (7.40-12.00) fL Neut % (Auto) 65.8 (48.0-80.0) % Lymph % (Auto) 22.3 (16.0-40.0) % [place] % (Auto) 8.4 (0.0-15.0) % Eos % (Auto) 2.9 (0.0-7.0) % Baso % (Auto) 0.6 (0.0-1.5) % Neut # (Auto) 4.7 (1.4-5.7) K/uL Lymph # (Auto) 1.6 (0.6-2.4) K/uL [place] # (Auto) 0.6 (0.0-0.8) K/uL Eos # (Auto) 0.2 (0.0-0.7) K/uL Baso # (Auto) 0.0 (0.0-0.1) K/uL Nucleated RBC % 0.0 /100WBC Nucleated RBCs # 0 K/uL Sodium 136 (136-148) mmol/L Potassium 4.0 (3.5-5.1) mmol/L Chloride 101 (98-107) mmol/L Carbon Dioxide 24.1 (21.0-32.0) mmol/L BUN 13 (7.0-18.0) mg/dL Creatinine 0.9 (0.8-1.3) mg/dL Est Cr Clr Drug Dosing 85.50 mL/min Estimated GFR (MDRD) > 60.0 ml/min Glucose 284 H (74-106) mg/dL POC Glucose (60-110) mg/dL Hemoglobin A1c 7.9 H (4.5-6.2) % Calcium 9.1 (8.5-10.1) mg/dL Total Bilirubin 0.3 (0.2-1.0) mg/dL AST 13 L (15-37) IU/L ALT 20 (14-63) IU/L Alkaline Phosphatase 97 (46-116) U/L Total Protein 7.4 (6.4-8.2) g/dL Albumin 3.4 (3.4-5.0) g/dL Globulin 4.0 (2.6-4.0) g/dL Albumin/Globulin Ratio 0.9 (0.9-1.6) 07/13/19 07/13/19 07/14/19 Range/Units 17:32 21:43 06:07 WBC (4.0-11.0) K/uL RBC (4.50-5.90) M/uL Hgb (13.0-17.0) g/dL Hct (38.0-50.0) % MCV (80.0-98.0) fL MCH (27.0-32.0) pg MCHC (31.0-37.0) g/dL RDW Std Deviation (28.0-62.0) fl RDW Coeff of Thor (11.0-15.0) % Plt Count (150-400) K/uL MPV (7.40-12.00) fL Neut % (Auto) (48.0-80.0) % Lymph % (Auto) (16.0-40.0) % [place] % (Auto) (0.0-15.0) % Eos % (Auto) (0.0-7.0) % Baso % (Auto) (0.0-1.5) % Neut # (Auto) (1.4-5.7) K/uL Lymph # (Auto) (0.6-2.4) K/uL [place] # (Auto) (0.0-0.8) K/uL Eos # (Auto) (0.0-0.7) K/uL Baso # (Auto) (0.0-0.1) K/uL Nucleated RBC % /100WBC Nucleated RBCs # K/uL Sodium (136-148) mmol/L Potassium (3.5-5.1) mmol/L Chloride (98-107) mmol/L Carbon Dioxide (21.0-32.0) mmol/L BUN (7.0-18.0) mg/dL Creatinine (0.8-1.3) mg/dL Est Cr Clr Drug Dosing mL/min Estimated GFR (MDRD) ml/min Glucose (74-106) mg/dL POC Glucose 124 H 192 H 123 H (60-110) mg/dL Hemoglobin A1c (4.5-6.2) % Calcium (8.5-10.1) mg/dL Total Bilirubin (0.2-1.0) mg/dL AST (15-37) IU/L ALT (14-63) IU/L Alkaline Phosphatase (46-116) U/L Total Protein (6.4-8.2) g/dL Albumin (3.4-5.0) g/dL Globulin (2.6-4.0) g/dL Albumin/Globulin Ratio (0.9-1.6) [place] Results Last 24 Hours: Microbiology 07/13/19 10:55 Anaerobic Blood Culture - Final Blood - Venous - Lab Draw 07/13/19 10:34 Anaerobic Blood Culture - Final Blood - Venous Med Orders - Current: Current Medications Acetaminophen (Tylenol) 650 mg PO Q4H PRN PRN Reason: Pain/Fever Last Admin: 07/13/19 17:32 Dose: 650 mg Aripiprazole (Abilify) 15 mg PO DAILY [facility] Duloxetine HCl (Cymbalta) 90 mg PO DAILY [facility] Enoxaparin Sodium (Lovenox) 40 mg SUBCUT Q24H [facility] Last Admin: 07/13/19 15:55 Dose: 40 mg Gabapentin (Neurontin) 600 mg PO TID [facility] Last Admin: 07/14/19 07:14 Dose: 600 mg Vancomycin HCl 1.25 gm/ Sodium (Chloride) 250 mls @ 166.667 mls/hr IV Q12H [facility] Last Admin: 07/14/19 00:32 Dose: 166.667 mls/hr Insulin Aspart (Novolog) 0 unit SUBCUT WITHMEALSANDBED [facility]; Protocol Last Admin: 07/14/19 08:08 Dose: Not Given Insulin Glargine (Lantus Solostar) 40 units SUBCUT DAILY [facility] Lisinopril (Prinivil) 20 mg PO DAILY [facility] Morphine Sulfate (Morphine) 1 mg IVPUSH Q4H PRN PRN Reason: Pain (severe 7-10) Last Admin: 07/14/19 05:23 Dose: 1 mg Nicotine (Habitrol) 14 mg TRDERM DAILY [facility] Last Admin: 07/13/19 14:04 Dose: 14 mg Omeprazole (Omeprazole) 20 mg PO ACBREAKFAST [facility] Last Admin: 07/14/19 07:14 Dose: 20 mg Ondansetron HCl (Zofran) 4 mg IVPUSH Q4H PRN PRN Reason: Nausea/Vomiting Oxycodone HCl (Oxycodone) 5 mg PO Q4H PRN PRN Reason: Pain (moderate 4-6) Last Admin: 07/14/19 07:14 Dose: 5 mg Sodium Chloride (Saline Flush) 10 ml FLUSH ASDIRECTED PRN PRN Reason: Keep Vein Open Last Admin: 07/13/19 10:53 Dose: 10 ml Sodium Chloride (Saline Flush) 2.5 ml FLUSH ASDIRECTED PRN PRN Reason: Keep Vein Open Last Admin: 07/13/19 10:53 Dose: 2.5 ml Vancomycin HCl (Pharmacy To Dose - Vancomycin) 1 dose .XX ASDIRECTED JAZMIN Discontinued Medications Sodium Chloride (Normal Saline) 1,000 mls @ 125 mls/hr IV STAT ONE Stop: 07/13/19 18:27 Last Admin: 07/13/19 10:53 Dose: 125 mls/hr Vancomycin HCl 1 gm/ Sodium (Chloride) 250 mls @ 166 mls/hr IV ONETIME ONE Stop: 07/13/19 12:49 Last Admin: 07/13/19 11:32 Dose: 166 mls/hr Insulin Aspart (Novolog) 4 unit SUBCUT NOW ONE Stop: 07/13/19 22:12 Last Admin: 07/13/19 22:42 Dose: 4 units Morphine Sulfate (Morphine) 2 mg IVPUSH ONETIME ONE Stop: 07/13/19 11:16 Last Admin: 07/13/19 11:32 Dose: 2 mg - Exam General: Alert, Oriented, Cooperative Lungs: Clear to Auscultation, Normal Respiratory Effort Cardiovascular: Regular Rate, Regular Rhythm GI/Abdominal Exam: Normal Bowel Sounds, Soft, Non-Tender, No Distention Extremities: No Pedal Edema Skin: Warm Wound/Incisions: Other (improving) Neurological: No New Focal Deficit Psy/Mental Status: Alert, Normal Affect, Normal Mood Sepsis Event Note - Evaluation Sepsis Screening Result: No Definite Risk - Focused Exam Vital Signs: Vital Signs Temp Pulse Resp BP Pulse Ox 07/14/19 07:25 97.7 F 88 16 140/90 94 L 07/14/19 04:00 97.7 F 90 139/82 94 L 07/14/19 01:28 97.3 F 97 17 127/82 95 Date Exam was Performed: 07/14/19 Time Exam was Performed: 10:28 - Problem List Review Problem List Initiated/Reviewed/Updated: Yes - My Orders Last 24 Hours: My Active Orders 07/13/19 12:09 Intake and Output [RC] Q12H Vital Signs [RC] Q4H Acetaminophen [Tylenol] 650 mg PO Q4H PRN Morphine 1 mg IVPUSH Q4H PRN Ondansetron [Zofran] 4 mg IVPUSH Q4H PRN oxyCODONE 5 mg PO Q4H PRN Resuscitation Status Routine 07/13/19 12:11 Accu Check [Blood Glucose Check, Bedside] [RC] WITHMEALSANDBED 07/13/19 12:15 Pharmacy to Dose - Vancomycin 1 dose .XX ASDIRECTED 07/13/19 13:18 Wound Business Consultant Consult [Consult to Wound Care Services] [CONS] Routine 07/13/19 14:00 Gabapentin [Neurontin] 600 mg PO TID Nicotine [Habitrol] 14 mg TRDERM DAILY 07/13/19 15:45 Enoxaparin [Lovenox] 40 mg SUBCUT Q24H 07/13/19 17:30 Insulin Aspart [NovoLOG] See Protocol SUBCUT WITHMEALSANDBED 07/13/19 23:30 Vancomycin 1.25 gm Sodium Chloride 0.9% [Normal Saline (AdvBag)] 250 ml IV Q12H 07/13/19 Dinner [place] [employer] Diet [DIET] 07/14/19 05:11 BASIC METABOLIC PANEL,BMP [CHEM] AM CBC WITH AUTO DIFF [HEME] AM LIPID PANEL [CHEM] AM 07/14/19 07:30 Omeprazole 20 mg PO ACBREAKFAST 07/14/19 09:00 ARIPiprazole [Abilify] 15 mg PO DAILY DULoxetine [Cymbalta] 90 mg PO DAILY Insulin Glarg,Human.Rec.Analog [LantUS Solostar] 40 units SUBCUT DAILY lisinopriL [Prinivil] 20 mg PO DAILY - Plan Plan:: 1. Diabetic foot ulcer- continue Vancomycin. Osteomyelitis ruled out on imaging. Consult wound care. Wound culture and Blood culture pending. Pain control with Tylenol, oxycodone and morphine. 2. DMII- HA1c is 7.9. Continue home Lantus [address] on sliding scale and accuchecks 3. HTN, Dissociative disorder- continue home meds.
[2019-07-14] MEDS: ARIPiprazole 10 MG Tab PO SCH (09:16)
[2019-07-14] MEDS: DULoxetine 30 MG Cap PO SCH (09:17)
[2019-07-14] MEDS: Lisinopril 10 MG Tab PO SCH (09:18)
[2019-07-14] MEDS: Nicotine 14 MG/24 Hr Patch TRDERM SCH (09:18)
[2019-07-14] MEDS: Insulin Glargine,Human Rec. Analog 100 Units/ML 3 ML Pen SUBCUT SCH (09:25)
[2019-07-14 09:58] LABS: BLOOD UREA NITROGEN,BUN 10 mg/dL (7.0-18.0); CARBON DIOXIDE,CO2 23.9 mmol/L (21.0-32.0); CHLORIDE,CL 102 mmol/L (98-107); GLUCOSE RANDOM 169 mg/dL (74-106); SODIUM,NA 137 mmol/L (136-148)
[2019-07-14] MEDS: Enoxaparin 40 MG/0.4 ML Syringe SUBCUT SCH (15:58)
[2019-07-15] MEDS: oxyCODONE 5 MG Tab PO PRN ×3 (03:33→11:13)
[2019-07-15 06:24] LABS: BLOOD UREA NITROGEN,BUN 11 mg/dL (7.0-18.0); CARBON DIOXIDE,CO2 27.6 mmol/L (21.0-32.0); CHLORIDE,CL 104 mmol/L (98-107); GLUCOSE RANDOM 164 mg/dL (74-106); POTASSIUM,K 3.8 mmol/L (3.5-5.1); SODIUM,NA 137 mmol/L (136-148)
[2019-07-15] MEDS: Gabapentin 300 MG Cap PO SCH (07:24)
[2019-07-15] MEDS: Omeprazole 20 MG Cap.CR PO SCH (07:24)
[2019-07-15] MEDS: Insulin Aspart 100 Units/ML 3 ML Pen SUBCUT SCH ×2 (07:36→11:50)
[2019-07-15] MEDS: Morphine 2 MG/ML Syringe IVPUSH PRN ×2 (08:03→12:14)
--- NOTE | 2019-07-15 08:22 | PCM.PN ---
- General Info Date of Service: 07/15/19 Subjective Update: Patient states he feels fine and wants to go home but understands he needs to have this foot taken care of first. Eating and drinking without issue. - Review of Systems General: Reports: No Symptoms HEENT: Reports: No Symptoms Pulmonary: Reports: No Symptoms Cardiovascular: Reports: No Symptoms Gastrointestinal: Reports: No Symptoms Genitourinary: Reports: No Symptoms Musculoskeletal: Reports: Foot Pain Skin: Reports: No Symptoms, Other (infected ulcer) Neurological: Reports: No Symptoms Psychiatric: Reports: No Symptoms - Patient Data Vitals - Most Recent: Last Vital Signs Temp 97.6 F 07/15/19 07:54 Pulse 89 07/15/19 07:54 Resp 13 07/15/19 07:54 BP 138/104 H 07/15/19 07:54 Pulse Ox 96 07/15/19 07:54 Weight - Most Recent: 90.718 kg I&O - Last 24 Hours: Intake & Output 07/14/19 07/15/19 07/15/19 22:59 06:59 14:59 Intake Total 800 800 Output Total 855 650 Balance -55 150 Lab Results Last 24 Hours: Laboratory Results - last 24 hr 07/14/19 07/14/19 07/14/19 Range/Units 09:15 09:15 12:14 WBC 7.73 (4.0-11.0) K/uL RBC 4.16 L (4.50-5.90) M/uL Hgb 13.6 (13.0-17.0) g/dL Hct 40.0 (38.0-50.0) % MCV 96.2 (80.0-98.0) fL MCH 32.7 H (27.0-32.0) pg MCHC 34.0 (31.0-37.0) g/dL RDW Std Deviation 43.9 (28.0-62.0) fl RDW Coeff of Thor 13 (11.0-15.0) % Plt Count 265 (150-400) K/uL MPV 9.60 (7.40-12.00) fL Neut % (Auto) 67.9 (48.0-80.0) % Lymph % (Auto) 21.1 (16.0-40.0) % Anderson % (Auto) 7.2 (0.0-15.0) % Eos % (Auto) 3.2 (0.0-7.0) % Baso % (Auto) 0.6 (0.0-1.5) % Neut # (Auto) 5.2 (1.4-5.7) K/uL Lymph # (Auto) 1.6 (0.6-2.4) K/uL Anderson # (Auto) 0.6 (0.0-0.8) K/uL Eos # (Auto) 0.3 (0.0-0.7) K/uL Baso # (Auto) 0.1 (0.0-0.1) K/uL Nucleated RBC % 0.0 /100WBC Nucleated RBCs # 0 K/uL Sodium 137 (136-148) mmol/L Potassium 4.0 (3.5-5.1) mmol/L Chloride 102 (98-107) mmol/L Carbon Dioxide 23.9 (21.0-32.0) mmol/L BUN 10 (7.0-18.0) mg/dL Creatinine 0.8 (0.8-1.3) mg/dL Est Cr Clr Drug Dosing 96.19 mL/min Estimated GFR (MDRD) > 60.0 ml/min Glucose 169 H (74-106) mg/dL POC Glucose 146 H (60-110) mg/dL Calcium 8.8 (8.5-10.1) mg/dL Triglycerides 190 (0-200) mg/dL Cholesterol 167 (50-200) mg/dL LDL Cholesterol, Calc 91 (60-180) mg/dL VLDL Cholesterol 38 (5-55) mg/dL HDL Cholesterol 38 L (40-60) mg/dL Cholesterol/HDL Ratio 4.4 (3.3-6.0) 07/14/19 07/14/19 07/14/19 Range/Units 15:53 17:43 21:14 WBC (4.0-11.0) K/uL RBC (4.50-5.90) M/uL Hgb (13.0-17.0) g/dL Hct (38.0-50.0) % MCV (80.0-98.0) fL MCH (27.0-32.0) pg MCHC (31.0-37.0) g/dL RDW Std Deviation (28.0-62.0) fl RDW Coeff of Thor (11.0-15.0) % Plt Count (150-400) K/uL MPV (7.40-12.00) fL Neut % (Auto) (48.0-80.0) % Lymph % (Auto) (16.0-40.0) % Anderson % (Auto) (0.0-15.0) % Eos % (Auto) (0.0-7.0) % Baso % (Auto) (0.0-1.5) % Neut # (Auto) (1.4-5.7) K/uL Lymph # (Auto) (0.6-2.4) K/uL Anderson # (Auto) (0.0-0.8) K/uL Eos # (Auto) (0.0-0.7) K/uL Baso # (Auto) (0.0-0.1) K/uL Nucleated RBC % /100WBC Nucleated RBCs # K/uL Sodium (136-148) mmol/L Potassium (3.5-5.1) mmol/L Chloride (98-107) mmol/L Carbon Dioxide (21.0-32.0) mmol/L BUN (7.0-18.0) mg/dL Creatinine (0.8-1.3) mg/dL Est Cr Clr Drug Dosing mL/min Estimated GFR (MDRD) ml/min Glucose (74-106) mg/dL POC Glucose 160 H 169 H 170 H (60-110) mg/dL Calcium (8.5-10.1) mg/dL Triglycerides (0-200) mg/dL Cholesterol (50-200) mg/dL LDL Cholesterol, Calc (60-180) mg/dL VLDL Cholesterol (5-55) mg/dL HDL Cholesterol (40-60) mg/dL Cholesterol/HDL Ratio (3.3-6.0) 07/15/19 07/15/19 07/15/19 Range/Units 05:16 05:16 06:32 WBC 6.94 (4.0-11.0) K/uL RBC 3.92 L (4.50-5.90) M/uL Hgb 13.0 (13.0-17.0) g/dL Hct 37.4 L (38.0-50.0) % MCV 95.4 (80.0-98.0) fL MCH 33.2 H (27.0-32.0) pg MCHC 34.8 (31.0-37.0) g/dL RDW Std Deviation 42.6 (28.0-62.0) fl RDW Coeff of Thor 12 (11.0-15.0) % Plt Count 282 (150-400) K/uL MPV 9.60 (7.40-12.00) fL Neut % (Auto) 61.9 (48.0-80.0) % Lymph % (Auto) 21.9 (16.0-40.0) % Anderson % (Auto) 11.5 (0.0-15.0) % Eos % (Auto) 4.0 (0.0-7.0) % Baso % (Auto) 0.7 (0.0-1.5) % Neut # (Auto) 4.3 (1.4-5.7) K/uL Lymph # (Auto) 1.5 (0.6-2.4) K/uL Anderson # (Auto) 0.8 (0.0-0.8) K/uL Eos # (Auto) 0.3 (0.0-0.7) K/uL Baso # (Auto) 0.1 (0.0-0.1) K/uL Nucleated RBC % 0.0 /100WBC Nucleated RBCs # 0 K/uL Sodium 137 (136-148) mmol/L Potassium 3.8 (3.5-5.1) mmol/L Chloride 104 (98-107) mmol/L Carbon Dioxide 27.6 (21.0-32.0) mmol/L BUN 11 (7.0-18.0) mg/dL Creatinine 0.8 (0.8-1.3) mg/dL Est Cr Clr Drug Dosing 96.19 mL/min Estimated GFR (MDRD) > 60.0 ml/min Glucose 164 H (74-106) mg/dL POC Glucose 138 H (60-110) mg/dL Calcium 8.7 (8.5-10.1) mg/dL Triglycerides (0-200) mg/dL Cholesterol (50-200) mg/dL LDL Cholesterol, Calc (60-180) mg/dL VLDL Cholesterol (5-55) mg/dL HDL Cholesterol (40-60) mg/dL Cholesterol/HDL Ratio (3.3-6.0) [place] Results Last 24 Hours: Microbiology 07/13/19 10:55 Aerobic Blood Culture - Preliminary Blood - Venous - Lab Draw NO GROWTH AFTER 1 DAY Anaerobic Blood Culture - Final 07/13/19 10:34 Aerobic Blood Culture - Preliminary Blood - Venous NO GROWTH AFTER 1 DAY Anaerobic Blood Culture - Final 07/13/19 10:25 Wound Culture - Preliminary Foot, Left Med Orders - Current: Current Medications Acetaminophen (Tylenol) 650 mg PO Q4H PRN PRN Reason: Pain/Fever Last Admin: 07/13/19 17:32 Dose: 650 mg Aripiprazole (Abilify) 15 mg PO DAILY [facility] Last Admin: 07/14/19 09:16 Dose: 15 mg Duloxetine HCl (Cymbalta) 90 mg PO DAILY [facility] Last Admin: 07/14/19 09:17 Dose: 90 mg Enoxaparin Sodium (Lovenox) 40 mg SUBCUT Q24H [facility] Last Admin: 07/14/19 15:58 Dose: 40 mg Gabapentin (Neurontin) 600 mg PO TID [facility] Last Admin: 07/15/19 07:24 Dose: 600 mg Vancomycin HCl 1.25 gm/ Sodium (Chloride) 250 mls @ 166.667 mls/hr IV Q12H [facility] Last Admin: 07/14/19 23:17 Dose: 166.667 mls/hr Insulin Aspart (Novolog) 0 unit SUBCUT WITHMEALSANDBED [facility]; Protocol Last Admin: 07/15/19 07:36 Dose: Not Given Insulin Glargine (Lantus Solostar) 40 units SUBCUT DAILY [facility] Last Admin: 07/14/19 09:25 Dose: 40 units Lisinopril (Prinivil) 20 mg PO DAILY [facility] Last Admin: 07/14/19 09:18 Dose: 20 mg Morphine Sulfate (Morphine) 1 mg IVPUSH Q4H PRN PRN Reason: Pain (severe 7-10) Last Admin: 07/15/19 08:03 Dose: 1 mg Nicotine (Habitrol) 14 mg TRDERM DAILY [facility] Last Admin: 07/14/19 09:18 Dose: 14 mg Omeprazole (Omeprazole) 20 mg PO ACBREAKFAST [facility] Last Admin: 07/15/19 07:24 Dose: 20 mg Ondansetron HCl (Zofran) 4 mg IVPUSH Q4H PRN PRN Reason: Nausea/Vomiting Oxycodone HCl (Oxycodone) 5 mg PO Q4H PRN PRN Reason: Pain (moderate 4-6) Last Admin: 07/15/19 07:35 Dose: 5 mg Sodium Chloride (Saline Flush) 10 ml FLUSH ASDIRECTED PRN PRN Reason: Keep Vein Open Last Admin: 07/13/19 10:53 Dose: 10 ml Sodium Chloride (Saline Flush) 2.5 ml FLUSH ASDIRECTED PRN PRN Reason: Keep Vein Open Last Admin: 07/13/19 10:53 Dose: 2.5 ml Vancomycin HCl (Pharmacy To Dose - Vancomycin) 1 dose .XX ASDIRECTED JAZMIN Discontinued Medications Sodium Chloride (Normal Saline) 1,000 mls @ 125 mls/hr IV STAT ONE Stop: 07/13/19 18:27 Last Admin: 07/13/19 10:53 Dose: 125 mls/hr Vancomycin HCl 1 gm/ Sodium (Chloride) 250 mls @ 166 mls/hr IV ONETIME ONE Stop: 07/13/19 12:49 Last Admin: 07/13/19 11:32 Dose: 166 mls/hr Insulin Aspart (Novolog) 4 unit SUBCUT NOW ONE Stop: 07/13/19 22:12 Last Admin: 07/13/19 22:42 Dose: 4 units Morphine Sulfate (Morphine) 2 mg IVPUSH ONETIME ONE Stop: 07/13/19 11:16 Last Admin: 07/13/19 11:32 Dose: 2 mg - Exam General: Alert, Oriented, Cooperative Lungs: Clear to Auscultation, Normal Respiratory Effort Cardiovascular: Regular Rate, Regular Rhythm GI/Abdominal Exam: Normal Bowel Sounds, Soft, Non-Tender, No Distention Neurological: No New Focal Deficit Psy/Mental Status: Alert, Normal Affect, Normal Mood Sepsis Event Note - Evaluation Sepsis Screening Result: No Definite Risk - Focused Exam Vital Signs: Vital Signs Temp Pulse Resp BP BP Pulse Ox 07/15/19 07:54 97.6 F 89 13 138/104 H 96 07/15/19 04:00 98 F 90 15 130/75 95 07/14/19 23:27 97 F 89 14 114/81 94 L Date Exam was Performed: 07/15/19 Time Exam was Performed: 08:20 - Problem List Review Problem List Initiated/Reviewed/Updated: Yes - My Orders Last 24 Hours: My Active Orders 07/14/19 07:30 Omeprazole 20 mg PO ACBREAKFAST 07/14/19 09:00 ARIPiprazole [Abilify] 15 mg PO DAILY DULoxetine [Cymbalta] 90 mg PO DAILY Insulin Glarg,Human.Rec.Analog [LantUS Solostar] 40 units SUBCUT DAILY lisinopriL [Prinivil] 20 mg PO DAILY - Plan Plan:: 1. Diabetic foot ulcer- growing beta hemolytic Group A strep. continue Vancomycin. Osteomyelitis ruled out on imaging. Consult wound care. Blood culture pending. Pain control with Tylenol, oxycodone and morphine. 2. DMII- HA1c is 7.9. Continue home Lantus [address] on sliding scale and accuchecks 3. HTN, Dissociative disorder- continue home meds.
[2019-07-15] MEDS: Nicotine 14 MG/24 Hr Patch TRDERM SCH (08:41)
[2019-07-15] MEDS: ARIPiprazole 10 MG Tab PO SCH (08:45)
[2019-07-15] MEDS: DULoxetine 30 MG Cap PO SCH (08:46)
[2019-07-15] MEDS: Lisinopril 10 MG Tab PO SCH (08:47)
[2019-07-15] MEDS: Insulin Glargine,Human Rec. Analog 100 Units/ML 3 ML Pen SUBCUT SCH (08:47)
[2019-07-15] MEDS ORDERED: Insulin Glargine,Human Rec. Analog 100 Units/ML 3 ML Pen SUBCUT SCH (09:00)
[2019-07-15] MEDS ORDERED: Sodium Chloride 0.9% 0 ML ONE (11:10)
--- NOTE | 2019-07-15 11:40 | PCM.DCSUM1 ---
<Sasha Duggan - Last Filed: 07/15/19 12:29> Discharge Summary - Hospital Course HPI Initial Comments: Admission Date: 07/13/19 Discharge Date: 07/15/19 Admission Diagnosis: 1. Diabetic foot ulcer 2. DMII 3. PMH- HTN/Dissociative disorder Discharge Diagnosis: 1. Diabetic foot ulcer- growing Group A Strep 2. DMII 3. PMH- HTN/Dissociative disorder Procedures: None Consults: None Hospital Course: The patient is a 59 year old male with PMH of DMII, dissociative disorder, peripheral neuropathy, and HTN with presented to the ER with ongoing left foot/ankle wound. Patient unsure how he originally got the wound as it was during one of his dissociative events. He has been on three different rounds of oral antibiotics- amoxicillin, Keflex, and Cipro. In the ER , no white count, CMP wnl except elevated glucose, x-ray did not see bony involvement. Started on Vancomycin. Given IVF and morphine. Blood cultures and wound cultures obtained in ER. He was admitted to medical floor and continued on Vancomycin. Wound care was consulted and recommended Aquacel daily. Had significant improvement after just one day of Aquacel. Wound cultures grew out Group A Strep. Blood cultures were negative. MRI showed no sign of osteomyelitis. For his diabetes, Ha1c was 7.9. Continued Lantus and sliding scale. Continued on home meds for chronic conditions. Disposition: Home Discharge Condition: vitals stable, tolerating oral diet, ambulating without difficulty, symptom improvement Discharge Instructions: regular diet as tolerated, activity as tolerated, take medications as prescribed. Symptoms to report to physician include fever/chills , chest pain, shortness of breath, abdominal pain, erythema, drainage/discharge , or not improving as expected. Change dressing daily, if worsening follow up with PCP. Discharge Medications: ARIPiprazole [Abilify] 15 mg PO DAILY DULoxetine [Cymbalta] 90 mg PO DAILY Gabapentin [Neurontin] 600 mg PO TID Insulin Glarg,Human.Rec.Analog [Lantus Solostar] 40 unit SUBCUT DAILY Lisinopril 20 mg PO DAILY Omeprazole 20 mg PO ACBREAKFAST Insulin Lispro [Humalog Kwikpen U-100] 0 unit SQ TIDAC Lidocaine 5% 1 applicful TOP TID PRN Clindamycin HCl 300 mg PO TID 7 Days #21 capsule Silver/Foam Bandage [Aquacel Ag Foam 8"X8" Dressing] 1 each TP DAILY 7 Days #7 bandage Follow-up: PCP- Dr. Suarez 07/22/19 - Discharge Data Discharge Date: 07/15/19 Discharge Disposition: Home, Self-Care 01 Condition: Stable - Referral to Home Health Primary Care Physician: Pedro Suarez MD - Patient Summary/Data Consults: Consultations 07/13/19 13:18 Wound Public Health Dentist Consult [Consult to Wound Care Services] [CONS] Routine - Patient Instructions Diet: Diabetic Diet Activity: As Tolerated Wound/Incision Care: Keep Operative Site/Wound Site Clean and Dry, Change Dressing Daily Notify Provider of: Fever, Increased Pain, Swelling and Redness, Drainage, Nausea and/or Vomiting Other/Special Instructions: Additional symptoms include chest pain, shortness of breath, abdominal pain, worsening infection on foot. - Discharge Plan *PRESCRIPTION DRUG MONITORING PROGRAM REVIEWED*: No *COPY OF PRESCRIPTION DRUG MONITORING REPORT IN PATIENT RAJINDER: No Prescriptions/Med Rec: Clindamycin HCl 300 mg PO TID 7 Days #21 capsule Silver/Foam Bandage [Aquacel Ag Foam 8"X8" Dressing] 1 each TP DAILY 7 Days #7 bandage Home Medications: Home Meds ARIPiprazole [Abilify] 15 mg PO DAILY 03/11/19 [History] DULoxetine [Cymbalta] 90 mg PO DAILY 03/11/19 [History] Gabapentin [Neurontin] 600 mg PO TID 03/11/19 [History] Insulin Glarg,Human.Rec.Analog [Lantus Solostar] 40 unit SUBCUT DAILY 03/11/19 [ History] Lisinopril 20 mg PO DAILY 03/11/19 [History] Omeprazole 20 mg PO ACBREAKFAST 03/11/19 [History] Insulin Lispro [Humalog Kwikpen U-100] 0 unit SQ TIDAC 07/13/19 [History] Lidocaine 5% 1 applicful TOP TID PRN 07/13/19 [History] Clindamycin HCl 300 mg PO TID 7 Days #21 capsule 07/15/19 [Rx] Silver/Foam Bandage [Aquacel Ag Foam 8"X8" Dressing] 1 each TP DAILY 7 Days #7 bandage 07/15/19 [Rx] Patient Handouts: Diabetes Mellitus and Foot Care, Clindamycin capsules, Wound Infection, [id number] Referrals: [facility] [Outside] Pedro Suarez MD [Primary Care Provider] - 07/22/19 9:00 am - Discharge Summary/Plan Comment DC Time >30 min.: No - Patient Data Vitals - Most Recent: Last Vital Signs Temp 97.6 F 07/15/19 07:54 Pulse 89 07/15/19 07:54 Resp 13 07/15/19 07:54 BP 138/104 H 07/15/19 08:47 Pulse Ox 96 07/15/19 07:54 Weight - Most Recent: 90.718 kg I&O - Last 24 hours: Intake & Output 07/14/19 07/15/19 07/15/19 22:59 06:59 14:59 Intake Total 800 800 240 Output Total 855 650 Balance -55 150 240 Lab Results - Last 24 hrs: Laboratory Results - last 24 hr 07/14/19 07/14/19 07/14/19 Range/Units 12:14 15:53 17:43 WBC (4.0-11.0) K/uL RBC (4.50-5.90) M/uL Hgb (13.0-17.0) g/dL Hct (38.0-50.0) % MCV (80.0-98.0) fL MCH (27.0-32.0) pg MCHC (31.0-37.0) g/dL RDW Std Deviation (28.0-62.0) fl RDW Coeff of Thor (11.0-15.0) % Plt Count (150-400) K/uL MPV (7.40-12.00) fL Neut % (Auto) (48.0-80.0) % Lymph % (Auto) (16.0-40.0) % Coos % (Auto) (0.0-15.0) % Eos % (Auto) (0.0-7.0) % Baso % (Auto) (0.0-1.5) % Neut # (Auto) (1.4-5.7) K/uL Lymph # (Auto) (0.6-2.4) K/uL Coos # (Auto) (0.0-0.8) K/uL Eos # (Auto) (0.0-0.7) K/uL Baso # (Auto) (0.0-0.1) K/uL Nucleated RBC % /100WBC Nucleated RBCs # K/uL Sodium (136-148) mmol/L Potassium (3.5-5.1) mmol/L Chloride (98-107) mmol/L Carbon Dioxide (21.0-32.0) mmol/L BUN (7.0-18.0) mg/dL Creatinine (0.8-1.3) mg/dL Est Cr Clr Drug Dosing mL/min Estimated GFR (MDRD) ml/min Glucose (74-106) mg/dL POC Glucose 146 H 160 H 169 H (60-110) mg/dL Calcium (8.5-10.1) mg/dL 07/14/19 07/15/19 07/15/19 Range/Units 21:14 05:16 05:16 WBC 6.94 (4.0-11.0) K/uL RBC 3.92 L (4.50-5.90) M/uL Hgb 13.0 (13.0-17.0) g/dL Hct 37.4 L (38.0-50.0) % MCV 95.4 (80.0-98.0) fL MCH 33.2 H (27.0-32.0) pg MCHC 34.8 (31.0-37.0) g/dL RDW Std Deviation 42.6 (28.0-62.0) fl RDW Coeff of Thor 12 (11.0-15.0) % Plt Count 282 (150-400) K/uL MPV 9.60 (7.40-12.00) fL Neut % (Auto) 61.9 (48.0-80.0) % Lymph % (Auto) 21.9 (16.0-40.0) % Coos % (Auto) 11.5 (0.0-15.0) % Eos % (Auto) 4.0 (0.0-7.0) % Baso % (Auto) 0.7 (0.0-1.5) % Neut # (Auto) 4.3 (1.4-5.7) K/uL Lymph # (Auto) 1.5 (0.6-2.4) K/uL Coos # (Auto) 0.8 (0.0-0.8) K/uL Eos # (Auto) 0.3 (0.0-0.7) K/uL Baso # (Auto) 0.1 (0.0-0.1) K/uL Nucleated RBC % 0.0 /100WBC Nucleated RBCs # 0 K/uL Sodium 137 (136-148) mmol/L Potassium 3.8 (3.5-5.1) mmol/L Chloride 104 (98-107) mmol/L Carbon Dioxide 27.6 (21.0-32.0) mmol/L BUN 11 (7.0-18.0) mg/dL Creatinine 0.8 (0.8-1.3) mg/dL Est Cr Clr Drug Dosing 96.19 mL/min Estimated GFR (MDRD) > 60.0 ml/min Glucose 164 H (74-106) mg/dL POC Glucose 170 H (60-110) mg/dL Calcium 8.7 (8.5-10.1) mg/dL 07/15/19 07/15/19 Range/Units 06:32 11:10 WBC (4.0-11.0) K/uL RBC (4.50-5.90) M/uL Hgb (13.0-17.0) g/dL Hct (38.0-50.0) % MCV (80.0-98.0) fL MCH (27.0-32.0) pg MCHC (31.0-37.0) g/dL RDW Std Deviation (28.0-62.0) fl RDW Coeff of Thor (11.0-15.0) % Plt Count (150-400) K/uL MPV (7.40-12.00) fL Neut % (Auto) (48.0-80.0) % Lymph % (Auto) (16.0-40.0) % Coos % (Auto) (0.0-15.0) % Eos % (Auto) (0.0-7.0) % Baso % (Auto) (0.0-1.5) % Neut # (Auto) (1.4-5.7) K/uL Lymph # (Auto) (0.6-2.4) K/uL Coos # (Auto) (0.0-0.8) K/uL Eos # (Auto) (0.0-0.7) K/uL Baso # (Auto) (0.0-0.1) K/uL Nucleated RBC % /100WBC Nucleated RBCs # K/uL Sodium (136-148) mmol/L Potassium (3.5-5.1) mmol/L Chloride (98-107) mmol/L Carbon Dioxide (21.0-32.0) mmol/L BUN (7.0-18.0) mg/dL Creatinine (0.8-1.3) mg/dL Est Cr Clr Drug Dosing mL/min Estimated GFR (MDRD) ml/min Glucose (74-106) mg/dL POC Glucose 138 H 182 H (60-110) mg/dL Calcium (8.5-10.1) mg/dL CELSO Results - Last 24 hrs: Microbiology 07/13/19 10:55 Aerobic Blood Culture - Preliminary Blood - Venous - Lab Draw NO GROWTH AFTER 2 DAYS Anaerobic Blood Culture - Final 07/13/19 10:34 Aerobic Blood Culture - Preliminary Blood - Venous NO GROWTH AFTER 2 DAYS Anaerobic Blood Culture - Final 07/13/19 10:25 Wound Culture - Preliminary Foot, Left Streptococcus Group A Med Orders - Current: Current Medications Acetaminophen (Tylenol) 650 mg PO Q4H PRN PRN Reason: Pain/Fever Last Admin: 07/13/19 17:32 Dose: 650 mg Aripiprazole (Abilify) 15 mg PO DAILY [facility] Last Admin: 07/15/19 08:45 Dose: 15 mg Duloxetine HCl (Cymbalta) 90 mg PO DAILY [facility] Last Admin: 07/15/19 08:46 Dose: 90 mg Enoxaparin Sodium (Lovenox) 40 mg SUBCUT Q24H [facility] Last Admin: 07/14/19 15:58 Dose: 40 mg Gabapentin (Neurontin) 600 mg PO TID [facility] Last Admin: 07/15/19 07:24 Dose: 600 mg Vancomycin HCl 1.25 gm/ Sodium (Chloride) 250 mls @ 166.667 mls/hr IV Q12H [facility] Last Admin: 07/14/19 23:17 Dose: 166.667 mls/hr Insulin Aspart (Novolog) 0 unit SUBCUT WITHMEALSANDBED [facility]; Protocol Last Admin: 07/15/19 07:36 Dose: Not Given Insulin Glargine (Lantus Solostar) 26 units SUBCUT DAILY [facility] Last Admin: 07/15/19 09:46 Dose: 26 unit Lisinopril (Prinivil) 20 mg PO DAILY [facility] Last Admin: 07/15/19 08:47 Dose: 20 mg Morphine Sulfate (Morphine) 1 mg IVPUSH Q4H PRN PRN Reason: Pain (severe 7-10) Last Admin: 07/15/19 08:03 Dose: 1 mg Nicotine (Habitrol) 14 mg TRDERM DAILY [facility] Last Admin: 07/15/19 08:41 Dose: 14 mg Omeprazole (Omeprazole) 20 mg PO ACBREAKFAST [facility] Last Admin: 07/15/19 07:24 Dose: 20 mg Ondansetron HCl (Zofran) 4 mg IVPUSH Q4H PRN PRN Reason: Nausea/Vomiting Oxycodone HCl (Oxycodone) 5 mg PO Q4H PRN PRN Reason: Pain (moderate 4-6) Last Admin: 07/15/19 11:13 Dose: 5 mg Sodium Chloride (Saline Flush) 10 ml FLUSH ASDIRECTED PRN PRN Reason: Keep Vein Open Last Admin: 07/13/19 10:53 Dose: 10 ml Sodium Chloride (Saline Flush) 2.5 ml FLUSH ASDIRECTED PRN PRN Reason: Keep Vein Open Last Admin: 07/13/19 10:53 Dose: 2.5 ml Vancomycin HCl (Pharmacy To Dose - Vancomycin) 1 dose .XX ASDIRECTED [facility] Discontinued Medications Sodium Chloride (Normal Saline) 1,000 mls @ 125 mls/hr IV STAT ONE Stop: 07/13/19 18:27 Last Admin: 07/13/19 10:53 Dose: 125 mls/hr Vancomycin HCl 1 gm/ Sodium (Chloride) 250 mls @ 166 mls/hr IV ONETIME ONE Stop: 07/13/19 12:49 Last Admin: 07/13/19 11:32 Dose: 166 mls/hr Sodium Chloride (Normal Saline (Advbag)) Confirm Administered Dose 250 mls @ as directed .ROUTE .STK-MED ONE Stop: 07/15/19 11:11 Insulin Aspart (Novolog) 4 unit SUBCUT NOW ONE Stop: 07/13/19 22:12 Last Admin: 07/13/19 22:42 Dose: 4 units Insulin Glargine (Lantus Solostar) 40 units SUBCUT DAILY [facility] Last Admin: 07/15/19 08:47 Dose: Not Given Morphine Sulfate (Morphine) 2 mg IVPUSH ONETIME ONE Stop: 07/13/19 11:16 Last Admin: 07/13/19 11:32 Dose: 2 mg <Arun Segura J - Last Filed: 07/15/19 18:05> Discharge Summary - Referral to Home Health Primary Care Physician: Pedro Suarez MD - Patient Summary/Data Consults: Consultations 07/13/19 13:18 Wound Public Health Dentist Consult [Consult to Wound Care Services] [CONS] Routine - Patient Data Vitals - Most Recent: Last Vital Signs Temp 36.2 C 07/15/19 12:00 Pulse 96 07/15/19 12:00 Resp 14 07/15/19 12:00 BP 138/86 07/15/19 12:00 Pulse Ox 92 L 07/15/19 12:00 I&O - Last 24 hours: Intake & Output 07/15/19 07/15/19 07/15/19 06:59 14:59 22:59 Intake Total 800 760 Output Total 650 Balance 150 760 Lab Results - Last 24 hrs: Laboratory Results - last 24 hr 07/14/19 07/15/19 07/15/19 Range/Units 21:14 05:16 05:16 WBC 6.94 (4.0-11.0) K/uL RBC 3.92 L (4.50-5.90) M/uL Hgb 13.0 (13.0-17.0) g/dL Hct 37.4 L (38.0-50.0) % MCV 95.4 (80.0-98.0) fL MCH 33.2 H (27.0-32.0) pg MCHC 34.8 (31.0-37.0) g/dL RDW Std Deviation 42.6 (28.0-62.0) fl RDW Coeff of Thor 12 (11.0-15.0) % Plt Count 282 (150-400) K/uL MPV 9.60 (7.40-12.00) fL Neut % (Auto) 61.9 (48.0-80.0) % Lymph % (Auto) 21.9 (16.0-40.0) % Coos % (Auto) 11.5 (0.0-15.0) % Eos % (Auto) 4.0 (0.0-7.0) % Baso % (Auto) 0.7 (0.0-1.5) % Neut # (Auto) 4.3 (1.4-5.7) K/uL Lymph # (Auto) 1.5 (0.6-2.4) K/uL Coos # (Auto) 0.8 (0.0-0.8) K/uL Eos # (Auto) 0.3 (0.0-0.7) K/uL Baso # (Auto) 0.1 (0.0-0.1) K/uL Nucleated RBC % 0.0 /100WBC Nucleated RBCs # 0 K/uL Sodium 137 (136-148) mmol/L Potassium 3.8 (3.5-5.1) mmol/L Chloride 104 (98-107) mmol/L Carbon Dioxide 27.6 (21.0-32.0) mmol/L BUN 11 (7.0-18.0) mg/dL Creatinine 0.8 (0.8-1.3) mg/dL Est Cr Clr Drug Dosing 96.19 mL/min Estimated GFR (MDRD) > 60.0 ml/min Glucose 164 H (74-106) mg/dL POC Glucose 170 H (60-110) mg/dL Calcium 8.7 (8.5-10.1) mg/dL 07/15/19 07/15/19 Range/Units 06:32 11:10 WBC (4.0-11.0) K/uL RBC (4.50-5.90) M/uL Hgb (13.0-17.0) g/dL Hct (38.0-50.0) % MCV (80.0-98.0) fL MCH (27.0-32.0) pg MCHC (31.0-37.0) g/dL RDW Std Deviation (28.0-62.0) fl RDW Coeff of Thor (11.0-15.0) % Plt Count (150-400) K/uL MPV (7.40-12.00) fL Neut % (Auto) (48.0-80.0) % Lymph % (Auto) (16.0-40.0) % Coos % (Auto) (0.0-15.0) % Eos % (Auto) (0.0-7.0) % Baso % (Auto) (0.0-1.5) % Neut # (Auto) (1.4-5.7) K/uL Lymph # (Auto) (0.6-2.4) K/uL Coos # (Auto) (0.0-0.8) K/uL Eos # (Auto) (0.0-0.7) K/uL Baso # (Auto) (0.0-0.1) K/uL Nucleated RBC % /100WBC Nucleated RBCs # K/uL Sodium (136-148) mmol/L Potassium (3.5-5.1) mmol/L Chloride (98-107) mmol/L Carbon Dioxide (21.0-32.0) mmol/L BUN (7.0-18.0) mg/dL Creatinine (0.8-1.3) mg/dL Est Cr Clr Drug Dosing mL/min Estimated GFR (MDRD) ml/min Glucose (74-106) mg/dL POC Glucose 138 H 182 H (60-110) mg/dL Calcium (8.5-10.1) mg/dL [facility] Results - Last 24 hrs: Microbiology 07/13/19 10:25 Wound Culture - Preliminary Foot, Left Streptococcus Group A 07/13/19 10:55 Aerobic Blood Culture - Preliminary Blood - Venous - Lab Draw NO GROWTH AFTER 2 DAYS Anaerobic Blood Culture - Final 07/13/19 10:34 Aerobic Blood Culture - Preliminary Blood - Venous NO GROWTH AFTER 2 DAYS Anaerobic Blood Culture - Final Med Orders - Current: Current Medications Discontinued Medications Acetaminophen (Tylenol) 650 mg PO Q4H PRN PRN Reason: Pain/Fever Last Admin: 07/13/19 17:32 Dose: 650 mg Aripiprazole (Abilify) 15 mg PO DAILY [facility] Last Admin: 07/15/19 08:45 Dose: 15 mg Duloxetine HCl (Cymbalta) 90 mg PO DAILY [facility] Last Admin: 07/15/19 08:46 Dose: 90 mg Enoxaparin Sodium (Lovenox) 40 mg SUBCUT Q24H [facility] Last Admin: 07/14/19 15:58 Dose: 40 mg Gabapentin (Neurontin) 600 mg PO TID [facility] Last Admin: 07/15/19 07:24 Dose: 600 mg Sodium Chloride (Normal Saline) 1,000 mls @ 125 mls/hr IV STAT ONE Stop: 07/13/19 18:27 Last Admin: 07/13/19 10:53 Dose: 125 mls/hr Vancomycin HCl 1 gm/ Sodium (Chloride) 250 mls @ 166 mls/hr IV ONETIME ONE Stop: 07/13/19 12:49 Last Admin: 07/13/19 11:32 Dose: 166 mls/hr Vancomycin HCl 1.25 gm/ Sodium (Chloride) 250 mls @ 166.667 mls/hr IV Q12H [facility] Last Admin: 07/15/19 11:56 Dose: Not Given Sodium Chloride (Normal Saline (Advbag)) Confirm Administered Dose 250 mls @ as directed .ROUTE .STK-MED ONE Stop: 07/15/19 11:11 Last Admin: 07/15/19 11:56 Dose: Not Given Insulin Aspart (Novolog) 0 unit SUBCUT WITHMEALSANDBED [facility]; Protocol Last Admin: 07/15/19 11:50 Dose: 2 units Insulin Aspart (Novolog) 4 unit SUBCUT NOW ONE Stop: 07/13/19 22:12 Last Admin: 07/13/19 22:42 Dose: 4 units Insulin Glargine (Lantus Solostar) 40 units SUBCUT DAILY [facility] Last Admin: 07/15/19 08:47 Dose: Not Given Insulin Glargine (Lantus Solostar) 26 units SUBCUT DAILY [facility] Last Admin: 07/15/19 09:46 Dose: 26 unit Lisinopril (Prinivil) 20 mg PO DAILY [facility] Last Admin: 07/15/19 08:47 Dose: 20 mg Morphine Sulfate (Morphine) 2 mg IVPUSH ONETIME ONE Stop: 07/13/19 11:16 Last Admin: 07/13/19 11:32 Dose: 2 mg Morphine Sulfate (Morphine) 1 mg IVPUSH Q4H PRN PRN Reason: Pain (severe 7-10) Last Admin: 07/15/19 12:14 Dose: 1 mg Nicotine (Habitrol) 14 mg TRDERM DAILY [facility] Last Admin: 07/15/19 08:41 Dose: 14 mg Omeprazole (Omeprazole) 20 mg PO ACBREAKFAST [facility] Last Admin: 07/15/19 07:24 Dose: 20 mg Ondansetron HCl (Zofran) 4 mg IVPUSH Q4H PRN PRN Reason: Nausea/Vomiting Oxycodone HCl (Oxycodone) 5 mg PO Q4H PRN PRN Reason: Pain (moderate 4-6) Last Admin: 07/15/19 11:13 Dose: 5 mg Sodium Chloride (Saline Flush) 10 ml FLUSH ASDIRECTED PRN PRN Reason: Keep Vein Open Last Admin: 07/13/19 10:53 Dose: 10 ml Sodium Chloride (Saline Flush) 2.5 ml FLUSH ASDIRECTED PRN PRN Reason: Keep Vein Open Last Admin: 07/13/19 10:53 Dose: 2.5 ml Vancomycin HCl (Pharmacy To Dose - Vancomycin) 1 dose .XX ASDIRECTED [facility] - Free Text/Narrative Note: I have seen and evaluated the patient with the resident. I have discussed findings and treatment plan with the resident. I agree with the assessment and plan in the following note.
== END 2019-07-15 12:27 | disposition home or self-care (01) ==
LOC: MW.ED 10:06 → MW.MS 11:37 → EEVIPCON 11:37
PROVIDERS: ADMIT Internal Medicine; ATTEND Internal Medicine
DX: E11.621 Type 2 diabetes mellitus with foot ulcer (principal); I10 Essential (primary) hypertension; F44.9 Dissociative and conversion disorder, unspecified; E11.42 Type 2 diabetes mellitus with diabetic polyneuropathy; F41.9 Anxiety disorder, unspecified; F17.210 Nicotine dependence, cigarettes, uncomplicated; Z88.4 Allergy status to anesthetic agent; Z79.4 Long term (current) use of insulin; Z79.899 Other long term (current) drug therapy
CPT/HCPCS: 36415; 73610; 73718; 80048; 80053; 80061; 82962; 83036; 85025; 87040; 87070; 87077; 87186; 96365; 96375; 99284; A9270; J1650; J1815; J2270; J3370; J7030; J7050; 96366; 96372; 96376; G0378

== ENCOUNTER 2019-07-31 03:46 | Inpatient (IN) | payer MEDICAID ==
[2019-07-31] MEDS ORDERED: Sodium Chloride 0.9% 2.5 ML Syringe FLUSH PRN (04:04)
[2019-07-31] MEDS ORDERED: Sodium Chloride 0.9% 10 ML SDV IV PRN (04:04)
[2019-07-31] MEDS ORDERED: Sodium Chloride 0.9% 10 ML Syringe FLUSH PRN (04:04)
[2019-07-31] MEDS ORDERED: Ibuprofen 800 MG Tab PO ONE (04:07)
[2019-07-31] MEDS ORDERED: Acetaminophen 325 MG Tab PO ONE (04:08)
--- NOTE | 2019-07-31 04:09 | EDM.PDOC ---
ED HPI GENERAL MEDICAL PROBLEM - General Stated Complaint: INCOHERENT, DIABETIC Time Seen by Provider: 07/31/19 03:50 Source of Information: Reports: EMS, Significant Other - History of Present Illness INITIAL COMMENTS - FREE TEXT/NARRATIVE: The patient is a 59-year-old male diabetic with an unspecified psychiatric history who presents to the ER for altered mental status. Per EMS and the patient's fianc who is at bedside, the patient has a chronic lower extremity healing wound but she states that he has not on antibiotics and it looks much better than it has previously. This is being managed on an outpatient basis. Yesterday, the patient took some opioid pain medications to help control some chronic pain but he was also having some nausea and vomiting a decided not to take those medications anymore. He also had some low-grade fevers yesterday. No cough, no difficulty breathing, no diarrhea, no complaints of any chest pain , no shortness of breath. He did have some more nausea and vomiting and then during 1 of these episodes he became lightheaded and weak in the knees that she describes it and he fell down and hit his forehead on the corner of a counter in their house. He denied any headaches and there was no altered mental status. The patient's fianc states that she woke up this morning to get ready for work and she found him in the kitchen urinating in the kitchen and attempting to drink out of a bluetooth speaker in their house. She states that he was "talking gibberish" as well. EMS arrived and they state that the patient had altered mental status and despite nothing being his hand he continued to drive and drink out of an empty hand. They were unable to establish an IV and he was brought here. Glucose was unremarkable, and the patient is tachycardic with a temperature of 102 degrees. - Related Data Allergies Allergy/AdvReac Type Severity Reaction Status Date / Time midazolam [From Versed] Allergy Anaphylactic Verified 07/31/19 04:16 Shock Home Meds: Home Meds ARIPiprazole [Abilify] 15 mg PO DAILY 03/11/19 [History] DULoxetine [Cymbalta] 90 mg PO DAILY 03/11/19 [History] Gabapentin [Neurontin] 600 mg PO TID 03/11/19 [History] Insulin Glarg,Human.Rec.Analog [Lantus Solostar] 40 unit SUBCUT DAILY 03/11/19 [ History] Lisinopril 20 mg PO DAILY 03/11/19 [History] Omeprazole 20 mg PO ACBREAKFAST 03/11/19 [History] Insulin Lispro [Humalog Kwikpen U-100] 0 unit SQ TIDAC 07/13/19 [History] Lidocaine 5% 1 applicful TOP TID PRN 07/13/19 [History] Clindamycin HCl 300 mg PO TID 7 Days #21 capsule 07/15/19 [Rx] Silver/Foam Bandage [Aquacel Ag Foam 8"X8" Dressing] 1 each TP DAILY 7 Days #7 bandage 07/15/19 [Rx] Eszopiclone [Lunesta] 2 mg PO BEDTIME PRN 07/31/19 [History] Past Medical History HEENT History: Reports: Impaired Vision Cardiovascular History: Reports: Hypertension Respiratory History: Reports: None Gastrointestinal History: Reports: None Genitourinary History: Reports: None Musculoskeletal History: Reports: None Neurological History: Reports: Brain Injury Psychiatric History: Reports: Anxiety, Hallucinations, Suicide Attempt, Schizophrenia, Suicidal Ideation Other Psychiatric History: schizoaffective Endocrine/Metabolic History: Reports: Diabetes, Type II Hematologic History: Reports: None Immunologic History: Reports: None Oncologic (Cancer) History: Reports: None Dermatologic History: Reports: None - Infectious Disease History Infectious Disease History: Reports: Chicken Pox, Measles, Mumps - Past Surgical History GI Surgical History: Reports: Appendectomy, Cholecystectomy, Hernia, Abdominal Musculoskeletal Surgical History: Reports: Arthroscopic Knee, Shoulder Surgery Social & Family History - Family History Family Medical History: Noncontributory - Caffeine Use Caffeine Use: Reports: Coffee ED ROS GENERAL - Review of Systems Review Of Systems: Unable To Obtain Reason Not Obtained: Altered mental status - Physical Exam Exam: See Below Text/Narrative:: Constitutional: Hot to the touch and febrile, confused, very sleepy HEENT.: Normocephalic, Atraumatic, PERRL, EOMI, External ears are atraumatic, Oropharynx clear and moist without lesions or masses, nares are patent without epistaxis Neck: Normal range of motion, Trachea Midline, No stridor, no meningismus Respiratory.: No respiratory distress, No tachypnea, Lungs Clear to Auscultation bilaterally without wheezes, rales, or rhonchi Cardiovascular.: Tachycardic rate appropriate for fever and regular rhythm without murmurs, rubs, or gallops, good peripheral perfusion GI: Abdomen soft and non tender, distended, mildly obese, chronic umbilical hernia present, old vertical surgical scars present Genital Urinary: External genitalia normal limits Musculoskeletal: Good range of motion. All 4 extremities present and atraumatic , no edema, there is a chronic superficial healing wound on the dorsum of the patient's left foot with some superficial exudate but the skin around the wound has no erythema, no induration and no warmth and no lymphangitis Back: Full Range of Motion Skin: Hot, Dry, Color is ethnicity appropriate, No acute rash. Lymphatic: No lymphadenopathy noted Neurological: Sleepy, he does respond to verbal stimuli and is intermittently oriented but most often confused, cranial nerves grossly intact, moves all 4 extremities equally Psych: Unable to assess Course - Vital Signs Text/Narrative:: The fever most likely explains this patient's altered mental status and confusion septic work-up will be initiated. However, the patient also has had this recent trauma to his head and as it is possible he could have more than 1 problem, a CT scan of the brain without contrast will be initiated in order to assess for subarachnoid hemorrhage, intracranial hemorrhage, subdural hematoma, epidural hematoma, or any acute intracranial pathology. This patient chronically has very poor peripheral IV access per the patient's fianc and nursing staff was able to establish one 22-gauge IV in his right hand that will allow fluids to be given but will not draw any blood. I then performed the procedure of a left external jugular IV access by placing the patient into Trendelenburg, and using manual manipulation, I quickly obtain access with an 18-gauge IV. The straws without difficulty and normal saline will be provided for resuscitative measures standard septic protocol. The patient is mildly hypoxic with oxygen levels around 86 to 88% on room air but talking with the patient's fianc he does have a history of smoking and given that the patient is not wheezing, he is not tachypneic, no accessory muscle usage, no evidence of any shortness of breath, other than placing a nasal cannula the patient, he does not require any intubation, BiPAP, or more aggressive airway management at this time. The ECG was read and interpreted by me -R P waves before every QRS with a regular ventricular rate of 140 bpm. AL, QRS and intervals are unremarkable. ST segments are baseline and T wave morphology is normal. Final interpretation is a normal sinus tachycardia without ischemic changes. Chest x-ray was reviewed and interpreted by me -there are diffuse pulmonary infiltrates on the right side, no pleural effusion, no pneumothorax Talk to the patient's fianc again and asked her about any recent hospitalizations and she states that within the last month he was at another facility in [facility] for a foot infection. Thus because the patient has had recent hospitalizations he is at a greater risk for hospital associated infections so based on the patient's chest x-ray, obvious sepsis, etc. he will be treated with broad-spectrum antibiotics which will also cover MRSA, as well as Pseudomonas and the patient will be given a combination of vancomycin, cefepime, and Levaquin. CT scan of the brain was reviewed and interpreted by me -there are no signs of any subarachnoid hemorrhage, intracranial hemorrhage, hydrocephalus, epidural hematoma, subdural hematoma or any acute process. CRITICAL CARE TIME Critical care time on this patient was 35 minutes and this was due to the significant nature of the illness and the need for my prompt and continued intervention and oversight. It involved patient evaluations, lab and imaging interpretations, medical management, and family and physician consultation. Critical care time is exclusive of billable procedures. Last Recorded V/S: Last Vital Signs Temp 39.3 C H 07/31/19 04:14 Pulse 130 H 07/31/19 04:17 Resp 12 07/31/19 04:17 BP 100/67 07/31/19 04:09 Pulse Ox 90 L 07/31/19 04:17 - Orders/Labs/Meds Orders: Active Orders 24 hr Category Date Time Status Admission Status [Patient Status] [ADT] Stat ADT 07/31/19 04:49 Active EKG Documentation Completion [RC] STAT Care 07/31/19 04:26 Active CULTURE BLOOD [BC] Stat Lab 07/31/19 04:03 Received CULTURE BLOOD [BC] Stat Lab 07/31/19 04:48 Received Cefepime [Maxipime in D5W 1 GM/50 ML] 1 gm Med 07/31/19 04:29 Active Premix Bag 1 bag IV ONETIME Levofloxacin/Dextrose 5%-Water [Levaquin in D5W 750 MG/ Med 07/31/19 04:29 Active 150 ML] 750 mg Premix Bag 1 bag IV ONETIME Sodium Chloride 0.9% [Normal Saline] Med 07/31/19 04:04 Active 10 ml IV ASDIRECTED PRN Sodium Chloride 0.9% [Normal Saline] 1,000 ml Med 07/31/19 04:10 Active IV .Bolus Sodium Chloride 0.9% [Normal Saline] 1,000 ml Med 07/31/19 04:11 Active IV .Bolus Sodium Chloride 0.9% [Saline Flush] Med 07/31/19 04:04 Active 10 ml FLUSH ASDIRECTED PRN Sodium Chloride 0.9% [Saline Flush] Med 07/31/19 04:04 Active 2.5 ml FLUSH ASDIRECTED PRN VANCOmycin/Water for INJ (PEG) [VANCOmycin 1.5 GM/300 Med 07/31/19 05:00 Active ML Premix] 1.5 gm Premix Bag 1 bag IV ONETIME Blood Culture x2 Reflex Set [OM.PC] Stat Oth 07/31/19 04:39 Ordered Peripheral IV Insertion Adult [OM.PC] Stat Oth 07/31/19 04:04 Ordered Medication Orders Sodium Chloride (Normal Saline) 1,000 mls @ 999 mls/hr IV .Bolus ONE Stop: 07/31/19 05:10 Last Infusion: 07/31/19 04:15 Dose: 999 mls/hr Admin: 07/31/19 04:13 Dose: 999 mls/hr Sodium Chloride (Normal Saline) 1,000 mls @ 999 mls/hr IV .Bolus ONE Stop: 07/31/19 05:11 Last Admin: 07/31/19 04:16 Dose: 999 mls/hr Cefepime HCl 1 gm/ Premix 50 mls @ 100 mls/hr IV ONETIME ONE Stop: 07/31/19 04:58 Levofloxacin/Dextrose 750 mg/ (Premix) 150 mls @ 100 mls/hr IV ONETIME ONE Stop: 07/31/19 05:58 Last Admin: 07/31/19 04:50 Dose: 100 mls/hr Vancomycin HCl 1.5 gm/ Premix 300 mls @ 300 mls/hr IV ONETIME ONE Stop: 07/31/19 05:59 Sodium Chloride (Saline Flush) 10 ml FLUSH ASDIRECTED PRN PRN Reason: Keep Vein Open Last Admin: 07/31/19 04:16 Dose: 10 ml Sodium Chloride (Saline Flush) 2.5 ml FLUSH ASDIRECTED PRN PRN Reason: Keep Vein Open Last Admin: 07/31/19 04:16 Dose: 2.5 ml Sodium Chloride (Normal Saline) 10 ml IV ASDIRECTED PRN PRN Reason: IV Use Labs: Laboratory Tests 07/31/19 07/31/19 07/31/19 Range/Units 04:03 04:03 04:03 WBC 9.35 (4.0-11.0) K/uL RBC 4.07 L (4.50-5.90) M/uL Hgb 13.5 (13.0-17.0) g/dL Hct 38.5 (38.0-50.0) % MCV 94.6 (80.0-98.0) fL MCH 33.2 H (27.0-32.0) pg MCHC 35.1 (31.0-37.0) g/dL RDW Std Deviation 42.5 (28.0-62.0) fl RDW Coeff of Thor 12 (11.0-15.0) % Plt Count 264 (150-400) K/uL MPV 9.40 (7.40-12.00) fL Neut % (Auto) 88.6 H (48.0-80.0) % Lymph % (Auto) 7.4 L (16.0-40.0) % [place] % (Auto) 3.6 (0.0-15.0) % Eos % (Auto) 0.3 (0.0-7.0) % Baso % (Auto) 0.1 (0.0-1.5) % Neut # (Auto) 8.3 H (1.4-5.7) K/uL Lymph # (Auto) 0.7 (0.6-2.4) K/uL [place] # (Auto) 0.3 (0.0-0.8) K/uL Eos # (Auto) 0.0 (0.0-0.7) K/uL Baso # (Auto) 0.0 (0.0-0.1) K/uL Nucleated RBC % 0.0 /100WBC Nucleated RBCs # 0 K/uL INR 1.03 Lactate 0.9 (0.20-2.00) mmol/L Sodium (136-148) mmol/L Potassium (3.5-5.1) mmol/L Chloride (98-107) mmol/L Carbon Dioxide (21.0-32.0) mmol/L BUN (7.0-18.0) mg/dL Creatinine (0.8-1.3) mg/dL Est Cr Clr Drug Dosing Estimated GFR (MDRD) ml/min Glucose (74-106) mg/dL Calcium (8.5-10.1) mg/dL Total Bilirubin (0.2-1.0) mg/dL AST (15-37) IU/L ALT (14-63) IU/L Alkaline Phosphatase (46-116) U/L Total Protein (6.4-8.2) g/dL Albumin (3.4-5.0) g/dL Globulin (2.6-4.0) g/dL Albumin/Globulin Ratio (0.9-1.6) 07/31/19 Range/Units 04:03 WBC (4.0-11.0) K/uL RBC (4.50-5.90) M/uL Hgb (13.0-17.0) g/dL Hct (38.0-50.0) % MCV (80.0-98.0) fL MCH (27.0-32.0) pg MCHC (31.0-37.0) g/dL RDW Std Deviation (28.0-62.0) fl RDW Coeff of Thor (11.0-15.0) % Plt Count (150-400) K/uL MPV (7.40-12.00) fL Neut % (Auto) (48.0-80.0) % Lymph % (Auto) (16.0-40.0) % [place] % (Auto) (0.0-15.0) % Eos % (Auto) (0.0-7.0) % Baso % (Auto) (0.0-1.5) % Neut # (Auto) (1.4-5.7) K/uL Lymph # (Auto) (0.6-2.4) K/uL [place] # (Auto) (0.0-0.8) K/uL Eos # (Auto) (0.0-0.7) K/uL Baso # (Auto) (0.0-0.1) K/uL Nucleated RBC % /100WBC Nucleated RBCs # K/uL INR Lactate (0.20-2.00) mmol/L Sodium 133 L (136-148) mmol/L Potassium 4.5 (3.5-5.1) mmol/L Chloride 97 L (98-107) mmol/L Carbon Dioxide 26.6 (21.0-32.0) mmol/L BUN 21 H (7.0-18.0) mg/dL Creatinine 1.0 (0.8-1.3) mg/dL Est Cr Clr Drug Dosing TNP Estimated GFR (MDRD) > 60.0 ml/min Glucose 126 H (74-106) mg/dL Calcium 8.4 L (8.5-10.1) mg/dL Total Bilirubin 0.6 (0.2-1.0) mg/dL AST 20 (15-37) IU/L ALT 27 (14-63) IU/L Alkaline Phosphatase 59 (46-116) U/L Total Protein 7.1 (6.4-8.2) g/dL Albumin 3.1 L (3.4-5.0) g/dL Globulin 4.0 (2.6-4.0) g/dL Albumin/Globulin Ratio 0.8 L (0.9-1.6) Meds: Medications Generic Name Dose Route Start Last Admin Trade Name Kyleq PRN Reason Stop Dose Admin Sodium Chloride 1,000 mls @ 999 mls/hr 07/31/19 04:10 07/31/19 04:15 Normal Saline IV 07/31/19 05:10 Infused .Bolus ONE Infusion Sodium Chloride 1,000 mls @ 999 mls/hr 07/31/19 04:11 07/31/19 04:16 Normal Saline IV 07/31/19 05:11 999 mls/hr .Bolus ONE Administration Cefepime HCl 1 gm/ Premix 50 mls @ 100 mls/hr 07/31/19 04:29 IV 07/31/19 04:58 ONETIME ONE Levofloxacin/Dextrose 750 mg/ 150 mls @ 100 mls/hr 07/31/19 04:29 07/31/19 04 :50 Premix IV 07/31/19 05:58 100 mls/hr ONETIME ONE Administration Vancomycin HCl 1.5 gm/ Premix 300 mls @ 300 mls/hr 07/31/19 05:00 IV 07/31/19 05:59 ONETIME ONE Sodium Chloride 10 ml 07/31/19 04:04 07/31/19 04:16 Saline Flush FLUSH 10 ml ASDIRECTED PRN Administration Keep Vein Open Sodium Chloride 2.5 ml 07/31/19 04:04 07/31/19 04:16 Saline Flush FLUSH 2.5 ml ASDIRECTED PRN Administration Keep Vein Open Sodium Chloride 10 ml 07/31/19 04:04 Normal Saline IV ASDIRECTED PRN IV Use Discontinued Medications Generic Name Dose Route Start Last Admin Trade Name Freq PRN Reason Stop Dose Admin Acetaminophen 975 mg 07/31/19 04:08 07/31/19 04:13 Tylenol PO 07/31/19 04:09 975 mg DAILY ONE Administration Ibuprofen 800 mg 07/31/19 04:07 07/31/19 04:14 Motrin PO 07/31/19 04:08 800 mg ONETIME ONE Administration Vancomycin HCl 1,500 mg 07/31/19 04:33 Vancomycin IV 07/31/19 04:34 ONETIME ONE Departure - Departure Time of Disposition: 04:48 Disposition: Admitted As Inpatient 66 Condition: Fair Clinical Impression: Pneumonia, Sepsis - Discharge Information Referrals: Pedro Suarez MD [Primary Care Provider] - Sepsis Event Note - Focused Exam Vital Signs: Vital Signs Temp Temp Pulse Resp BP Pulse Ox 07/31/19 04:17 130 H 12 90 L 07/31/19 04:14 39.3 C H 07/31/19 04:13 39.3 C H 07/31/19 04:09 39.1 C H 139 H 20 100/67 88 L Date Exam was Performed: 07/31/19 Time Exam was Performed: 04:56 - My Orders Last 24 Hours: My Active Orders 07/31/19 04:03 CULTURE BLOOD [BC] Stat 07/31/19 04:04 Sodium Chloride 0.9% [Normal Saline] 10 ml IV ASDIRECTED PRN Sodium Chloride 0.9% [Saline Flush] 10 ml FLUSH ASDIRECTED PRN Sodium Chloride 0.9% [Saline Flush] 2.5 ml FLUSH ASDIRECTED PRN Peripheral IV Insertion Adult [OM.PC] Stat 07/31/19 04:10 Sodium Chloride 0.9% [Normal Saline] 1,000 ml IV .Bolus 07/31/19 04:11 Sodium Chloride 0.9% [Normal Saline] 1,000 ml IV .Bolus 07/31/19 04:26 EKG Documentation Completion [RC] STAT 07/31/19 04:29 Cefepime [Maxipime in D5W 1 GM/50 ML] 1 gm Premix Bag 1 bag IV ONETIME Levofloxacin/Dextrose 5%-Water [Levaquin in D5W 750 MG/150 ML] 750 mg Premix Bag 1 bag IV ONETIME 07/31/19 04:39 Blood Culture x2 Reflex Set [OM.PC] Stat 07/31/19 04:48 CULTURE BLOOD [BC] Stat 07/31/19 04:49 Admission Status [Patient Status] [ADT] Stat 07/31/19 05:00 VANCOmycin/Water for INJ (PEG) [VANCOmycin 1.5 GM/300 ML Premix] 1.5 gm Premix Bag 1 bag IV ONETIME - Assessment/Plan Last 24 Hours: My Active Orders 07/31/19 04:03 CULTURE BLOOD [BC] Stat 07/31/19 04:04 Sodium Chloride 0.9% [Normal Saline] 10 ml IV ASDIRECTED PRN Sodium Chloride 0.9% [Saline Flush] 10 ml FLUSH ASDIRECTED PRN Sodium Chloride 0.9% [Saline Flush] 2.5 ml FLUSH ASDIRECTED PRN Peripheral IV Insertion Adult [OM.PC] Stat 07/31/19 04:10 Sodium Chloride 0.9% [Normal Saline] 1,000 ml IV .Bolus 07/31/19 04:11 Sodium Chloride 0.9% [Normal Saline] 1,000 ml IV .Bolus 07/31/19 04:26 EKG Documentation Completion [RC] STAT 07/31/19 04:29 Cefepime [Maxipime in D5W 1 GM/50 ML] 1 gm Premix Bag 1 bag IV ONETIME Levofloxacin/Dextrose 5%-Water [Levaquin in D5W 750 MG/150 ML] 750 mg Premix Bag 1 bag IV ONETIME 07/31/19 04:39 Blood Culture x2 Reflex Set [OM.PC] Stat 07/31/19 04:48 CULTURE BLOOD [BC] Stat 07/31/19 04:49 Admission Status [Patient Status] [ADT] Stat 07/31/19 05:00 VANCOmycin/Water for INJ (PEG) [VANCOmycin 1.5 GM/300 ML Premix] 1.5 gm Premix Bag 1 bag IV ONETIME
[2019-07-31] MEDS ORDERED: Sodium Chloride 0.9% 1,000 ML IV ONE ×2 (04:10→04:11)
[2019-07-31] MEDS ORDERED: Cefepime 1 GM in Premix Bag 1 BAG IV ONE (04:29)
[2019-07-31] MEDS ORDERED: Levofloxacin/Dextrose 5%-Water 750 MG in Premix Bag 1 BAG IV ONE (04:29)
[2019-07-31 04:30] LABS: BLOOD UREA NITROGEN,BUN 21 mg/dL (7.0-18.0); CARBON DIOXIDE,CO2 26.6 mmol/L (21.0-32.0); CHLORIDE,CL 97 mmol/L (98-107); GLUCOSE RANDOM 126 mg/dL (74-106); POTASSIUM,K 4.5 mmol/L (3.5-5.1); SODIUM,NA 133 mmol/L (136-148)
[2019-07-31] MEDS ORDERED: Vancomycin 500 MG SDV IV ONE (04:33)
--- NOTE | 2019-07-31 04:50 | CT ---
INDICATION: Altered mental status. COMPARISON: None available. TECHNIQUE: CT examination of the head was performed with 3 mm thick axial sections without intravenous contrast. Images were obtained from the vertex of the skull through the skull base, and I examined the images with the brain and bone windows. Please note that all CT scans at this facility use dose modulation, iterative reconstruction, and/or weight-based dosing when appropriate to reduce radiation dose to as low as reasonably achievable. FINDINGS: : The brain is normal in appearance for the patient`s age on today`s study, with no sign of mass lesion, mass effect, hemorrhage, or edema. The ventricles and sulci are normal in appearance for the patient`s age. There are old mild bilateral medial orbital blowout fractures. Mucous retention cysts are seen in the inferior maxillary sinuses bilaterally, left greater than right. The rest of the visualized portions of the paranasal sinuses and mastoids are clear. The osseous structures are normal in their appearance with no sign of abnormality in the skull base or calvarium. IMPRESSION: Normal noncontrast CT of the head for the patient`s age. Please note that all CT scans at this facility use dose modulation, iterative reconstruction, and/or weight-based dosing when appropriate to reduce radiation dose to as low as reasonably achievable. Dictated by Mahesh Carrillo MD @ Jul 31 2019 4:44AM Signed by Dr. Mahesh Carrillo @ Jul 31 2019 4:49AM
--- NOTE | 2019-07-31 04:52 | CR ---
INDICATION: Altered mental status COMPARISON: None available. FINDINGS: An erect single view of the chest was obtained at 0421 hours. There is moderate infiltrate in the right mid and lower lung, consistent with moderate right lower lobe pneumonia. The rest of the chest is clear. There is no sign of pleural effusion. The heart is top-normal in size. The mediastinum is normal in appearance. The osseous structures are normal in appearance for the patient`s age. IMPRESSION: Moderate infiltrate in the right mid and lower lung consistent with moderate right lower lobe pneumonia. Dictated by Mahesh Carrillo MD @ Jul 31 2019 4:49AM Signed by Dr. Mahesh Carrillo @ Jul 31 2019 4:50AM
[2019-07-31] MEDS ORDERED: Lactated Ringers 1,000 ML IV ONE ×2 (06:42→07:57)
[2019-07-31] MEDS ORDERED: Lactated Ringers 1,000 ML IV SCH (06:45)
[2019-07-31] MEDS ORDERED: Ketorolac 15 MG/ML SDV IVPUSH PRN (06:50)
[2019-07-31] MEDS: Insulin Aspart 100 Units/ML 3 ML Pen SUBCUT SCH ×3 (06:59→17:33)
[2019-07-31 07:09] LABS: BILIRUBIN INDIRECT 0.4
[2019-07-31] MEDS ORDERED: HYDROmorphone 2 MG/ML Syringe IVPUSH ONE (08:27)
[2019-07-31] MEDS ORDERED: Lidocaine 2% 5 ML SDV ONE (08:54)
[2019-07-31] MEDS ORDERED: Sodium Chloride 0.9% 500 ML IV ONE (08:58)
[2019-07-31] MEDS ORDERED: HYDROmorphone 1 MG/ML Syringe IVPUSH ONE ×2 (09:09)
--- NOTE | 2019-07-31 09:34 | PCM.HP.2 ---
H&P History of Present Illness - General Date of Service: 07/31/19 Admit Problem/Dx: Admission Diagnosis/Problem Admission Diagnosis/Problem Pneumonia Source of Information: Patient, Old Records, Significant Other History Limitations: Reports: No Limitations - History of Present Illness Initial Comments - Free Text/Narative: This 59 year old male with pmh of HTN, DM Type 2, schizoaffective disorder with recent dissociative event, and chronic pain on narcotics from diabetic ulcer to L anterior ankle, presented to the ED via EMS this morning when his fiance found him urinating in the kitchen and trying to drink out of a speaker. This morning he was alert and oriented. Reports he has not been feeling well for the past few days, with low grade fevers and productive cough, that was green and thick. He has denies chest pain or SOB. No concerns with abdominal pain or urinary concerns. No diarrhea or constipation. He has been taking Dilaudid 4 mg , 2 tabs every 4-6 hours, per his fiance. He admits to taking 4 mg, but she said he has been taking more. He had taken some dilaudid the other day, got weak in his knees and feel hitting his head on the counter. No headaches and they did not seek medical care after this. This morning with the altered state in the kitchen, he was talking gibberish. In the ED labwork WNL, lactic acid 0.9. CXR revealed R mid to Lower lobe infiltrate, head CT negative. He was noted to be tachycardic and febrile 102 F. He was give 2 L NS in the ED along with Vancomycin, Levaquin and Cefepime. He was admitted inpatient for sepsis and pneumonia. Dr Suarez. After initial assessment patient very lethargic with BP 80s/40s. Given anouther 2 L LR bolus with minimal improvement of blood pressures. He became more alert. levophed gtt started and transferred to ICU for further management and care to stabilize. Dr Holt called to evaluate patient. Left Foot Pain Score (Numeric/FACES): 7 - Related Data Allergies/Adverse Reactions: Allergies Allergy/AdvReac Type Severity Reaction Status Date / Time midazolam [From Versed] Allergy Anaphylactic Verified 07/31/19 06:13 Shock Home Medications: Home Meds ARIPiprazole [Abilify] 15 mg PO DAILY 03/11/19 [History] DULoxetine [Cymbalta] 90 mg PO DAILY 03/11/19 [History] Gabapentin [Neurontin] 600 mg PO TID 03/11/19 [History] Insulin Glarg,Human.Rec.Analog [Lantus Solostar] 40 unit SUBCUT DAILY 03/11/19 [ History] Lisinopril 20 mg PO DAILY 03/11/19 [History] Omeprazole 20 mg PO ACBREAKFAST 03/11/19 [History] Insulin Lispro [Humalog Kwikpen U-100] 0 unit SQ TIDAC 07/13/19 [History] Lidocaine 5% 1 applicful TOP TID PRN 07/13/19 [History] Clindamycin HCl 300 mg PO TID 7 Days #21 capsule 07/15/19 [Rx] Silver/Foam Bandage [Aquacel Ag Foam 8"X8" Dressing] 1 each TP DAILY 7 Days #7 bandage 07/15/19 [Rx] Eszopiclone [Lunesta] 2 mg PO BEDTIME PRN 07/31/19 [History] Insulin Aspart [NovoLOG] 0 unit SUBCUT WITHMEALSANDBED 07/31/19 [History] Past Medical History HEENT History: Reports: Impaired Vision Cardiovascular History: Reports: Hypertension. Denies: Afib, Blood Clots/VTE/ DVT, CAD, NC Respiratory History: Reports: None. Denies: COPD Gastrointestinal History: Reports: GERD Genitourinary History: Reports: None Musculoskeletal History: Reports: None Neurological History: Reports: Brain Injury Psychiatric History: Reports: Anxiety, Hallucinations, Suicide Attempt, Schizophrenia, Suicidal Ideation Other Psychiatric History: schizoaffective Endocrine/Metabolic History: Reports: Diabetes, Type II Hematologic History: Reports: None Immunologic History: Reports: None Oncologic (Cancer) History: Reports: None Dermatologic History: Reports: None - Infectious Disease History Infectious Disease History: Reports: Chicken Pox, Measles, Mumps - Past Surgical History GI Surgical History: Reports: Appendectomy, Cholecystectomy, Hernia, Abdominal Musculoskeletal Surgical History: Reports: Arthroscopic Knee, Shoulder Surgery Social & Family History - Family History Family Medical History: Noncontributory - Tobacco Use Smoking Status *Q: Former Smoker Years of Tobacco use: 40 Packs/Tins Daily: 0.5 Used Tobacco, but Quit: No - Caffeine Use Caffeine Use: Reports: Coffee - Alcohol Use Alcohol Use History: No - Recreational Drug Use Recreational Drug Use: No - Living Situation & Occupation Living situation: Reports: with Significant Other H&P Review of Systems - Review of Systems: Review Of Systems: See Below General: Reports: Fever, Chills, Malaise HEENT: Reports: No Symptoms. Denies: Headaches, Sinus Congestion Pulmonary: Reports: Cough, Sputum. Denies: Shortness of Breath Gastrointestinal: Reports: Nausea, Vomiting. Denies: Black Stool, Bloody Stool Genitourinary: Reports: No Symptoms. Denies: Dysuria, Frequency, Burning Musculoskeletal: Reports: Foot Pain (L foot) Skin: Reports: Wound (healing diabetic wound to L anterior ankle) Neurological: Reports: No Symptoms Hematologic/Lymphatic: Reports: No Symptoms Immunologic: Reports: No Symptoms Exam - Exam Exam: See Below - Vital Signs Vital Signs: Last Vital Signs Temp 96.4 F L 07/31/19 08:00 Pulse 108 H 07/31/19 08:00 Resp 16 07/31/19 08:00 BP 90/58 L 07/31/19 08:28 Pulse Ox 94 L 07/31/19 08:00 Weight: 99.291 kg - Patient Data Lab Results Last 24 hrs: Laboratory Results - last 24 hr 07/31/19 07/31/19 07/31/19 Range/Units 04:03 04:03 04:03 WBC 9.35 (4.0-11.0) K/uL RBC 4.07 L (4.50-5.90) M/uL Hgb 13.5 (13.0-17.0) g/dL Hct 38.5 (38.0-50.0) % MCV 94.6 (80.0-98.0) fL MCH 33.2 H (27.0-32.0) pg MCHC 35.1 (31.0-37.0) g/dL RDW Std Deviation 42.5 (28.0-62.0) fl RDW Coeff of Thor 12 (11.0-15.0) % Plt Count 264 (150-400) K/uL MPV 9.40 (7.40-12.00) fL Neut % (Auto) 88.6 H (48.0-80.0) % Lymph % (Auto) 7.4 L (16.0-40.0) % Major % (Auto) 3.6 (0.0-15.0) % Eos % (Auto) 0.3 (0.0-7.0) % Baso % (Auto) 0.1 (0.0-1.5) % Neut # (Auto) 8.3 H (1.4-5.7) K/uL Lymph # (Auto) 0.7 (0.6-2.4) K/uL Major # (Auto) 0.3 (0.0-0.8) K/uL Eos # (Auto) 0.0 (0.0-0.7) K/uL Baso # (Auto) 0.0 (0.0-0.1) K/uL Nucleated RBC % 0.0 /100WBC Nucleated RBCs # 0 K/uL INR 1.03 Lactate 0.9 (0.20-2.00) mmol/L Sodium (136-148) mmol/L Potassium (3.5-5.1) mmol/L Chloride (98-107) mmol/L Carbon Dioxide (21.0-32.0) mmol/L BUN (7.0-18.0) mg/dL Creatinine (0.8-1.3) mg/dL Est Cr Clr Drug Dosing Estimated GFR (MDRD) ml/min Glucose (74-106) mg/dL POC Glucose (60-110) mg/dL Calcium (8.5-10.1) mg/dL Total Bilirubin (0.2-1.0) mg/dL Direct Bilirubin (0.0-0.5) mg/dL Indirect Bilirubin AST (15-37) IU/L ALT (14-63) IU/L Alkaline Phosphatase (46-116) U/L Total Protein (6.4-8.2) g/dL Albumin (3.4-5.0) g/dL Globulin (2.6-4.0) g/dL Albumin/Globulin Ratio (0.9-1.6) 07/31/19 07/31/19 07/31/19 Range/Units 04:03 04:03 06:37 WBC (4.0-11.0) K/uL RBC (4.50-5.90) M/uL Hgb (13.0-17.0) g/dL Hct (38.0-50.0) % MCV (80.0-98.0) fL MCH (27.0-32.0) pg MCHC (31.0-37.0) g/dL RDW Std Deviation (28.0-62.0) fl RDW Coeff of Thor (11.0-15.0) % Plt Count (150-400) K/uL MPV (7.40-12.00) fL Neut % (Auto) (48.0-80.0) % Lymph % (Auto) (16.0-40.0) % Major % (Auto) (0.0-15.0) % Eos % (Auto) (0.0-7.0) % Baso % (Auto) (0.0-1.5) % Neut # (Auto) (1.4-5.7) K/uL Lymph # (Auto) (0.6-2.4) K/uL Major # (Auto) (0.0-0.8) K/uL Eos # (Auto) (0.0-0.7) K/uL Baso # (Auto) (0.0-0.1) K/uL Nucleated RBC % /100WBC Nucleated RBCs # K/uL INR Lactate (0.20-2.00) mmol/L Sodium 133 L (136-148) mmol/L Potassium 4.5 (3.5-5.1) mmol/L Chloride 97 L (98-107) mmol/L Carbon Dioxide 26.6 (21.0-32.0) mmol/L BUN 21 H (7.0-18.0) mg/dL Creatinine 1.0 (0.8-1.3) mg/dL Est Cr Clr Drug Dosing TNP Estimated GFR (MDRD) > 60.0 ml/min Glucose 126 H (74-106) mg/dL POC Glucose 135 H (60-110) mg/dL Calcium 8.4 L (8.5-10.1) mg/dL Total Bilirubin 0.6 0.6 (0.2-1.0) mg/dL Direct Bilirubin 0.20 (0.0-0.5) mg/dL Indirect Bilirubin 0.40 AST 20 20 (15-37) IU/L ALT 27 26 (14-63) IU/L Alkaline Phosphatase 59 60 (46-116) U/L Total Protein 7.1 7.1 (6.4-8.2) g/dL Albumin 3.1 L 3.1 L (3.4-5.0) g/dL Globulin 4.0 4.0 (2.6-4.0) g/dL Albumin/Globulin Ratio 0.8 L 0.8 L (0.9-1.6) 07/31/19 Range/Units 08:45 WBC (4.0-11.0) K/uL RBC (4.50-5.90) M/uL Hgb (13.0-17.0) g/dL Hct (38.0-50.0) % MCV (80.0-98.0) fL MCH (27.0-32.0) pg MCHC (31.0-37.0) g/dL RDW Std Deviation (28.0-62.0) fl RDW Coeff of Thor (11.0-15.0) % Plt Count (150-400) K/uL MPV (7.40-12.00) fL Neut % (Auto) (48.0-80.0) % Lymph % (Auto) (16.0-40.0) % Major % (Auto) (0.0-15.0) % Eos % (Auto) (0.0-7.0) % Baso % (Auto) (0.0-1.5) % Neut # (Auto) (1.4-5.7) K/uL Lymph # (Auto) (0.6-2.4) K/uL Major # (Auto) (0.0-0.8) K/uL Eos # (Auto) (0.0-0.7) K/uL Baso # (Auto) (0.0-0.1) K/uL Nucleated RBC % /100WBC Nucleated RBCs # K/uL INR Lactate (0.20-2.00) mmol/L Sodium (136-148) mmol/L Potassium (3.5-5.1) mmol/L Chloride (98-107) mmol/L Carbon Dioxide (21.0-32.0) mmol/L BUN (7.0-18.0) mg/dL Creatinine (0.8-1.3) mg/dL Est Cr Clr Drug Dosing Estimated GFR (MDRD) ml/min Glucose (74-106) mg/dL POC Glucose 157 H (60-110) mg/dL Calcium (8.5-10.1) mg/dL Total Bilirubin (0.2-1.0) mg/dL Direct Bilirubin (0.0-0.5) mg/dL Indirect Bilirubin AST (15-37) IU/L ALT (14-63) IU/L Alkaline Phosphatase (46-116) U/L Total Protein (6.4-8.2) g/dL Albumin (3.4-5.0) g/dL Globulin (2.6-4.0) g/dL Albumin/Globulin Ratio (0.9-1.6) Result Diagrams: 07/31/19 04:03 07/31/19 04:03 [place] Results Last 24 hrs: Microbiology 07/31/19 04:06 Influenza Type A Antigen Screen - Final Nasopharyngeal Swab NEGATIVE INFLUENZA A VIRUS AG REFERENCE RANGE: NEGATIVE Influenza Type B Antigen Screen - Final NEGATIVE INFLUENZA B VIRUS AG REFERENCE RANGE: NEGATIVE Sepsis Event Note - Evaluation Sepsis Screening Result: No Definite Risk - Focused Exam Vital Signs: Vital Signs Temp Temp Temp Pulse Resp BP BP 07/31/19 08:28 90/58 L 07/31/19 08:23 92/64 07/31/19 08:00 96.4 F L 108 H 16 91/52 L 07/31/19 06:12 96.9 F 119 H 14 99/58 L 07/31/19 05:14 100.7 F H 07/31/19 05:02 100.7 F H 07/31/19 04:17 130 H 12 07/31/19 04:14 102.8 F H 07/31/19 04:13 102.8 F H 07/31/19 04:09 102.3 F H 139 H 20 100/67 Pulse Ox 07/31/19 08:28 07/31/19 08:23 07/31/19 08:00 94 L 07/31/19 06:12 96 07/31/19 05:14 07/31/19 05:02 07/31/19 04:17 90 L 07/31/19 04:14 07/31/19 04:13 07/31/19 04:09 88 L Date Exam was Performed: 07/31/19 Time Exam was Performed: 14:00 - Problem List (1) Sepsis SNOMED Code(s): 40797408 ICD Code: A41.9 - SEPSIS, UNSPECIFIED ORGANISM Status: Acute Current Visit: Yes Qualifiers: Sepsis acute organ dysfunction status: with acute organ dysfunction Severe sepsis acute organ dysfunction type: acute respiratory failure Acute respiratory failure type: with hypoxia Severe sepsis shock status: without septic shock (2) Pneumonia SNOMED Code(s): 121612552 ICD Code: J18.9 - PNEUMONIA, UNSPECIFIED ORGANISM Status: Acute Current Visit: Yes (3) Chronic pain SNOMED Code(s): 28653652 ICD Code: G89.29 - OTHER CHRONIC PAIN Status: Chronic Current Visit: Yes (4) Narcotic dependence SNOMED Code(s): 645319163 ICD Code: F11.20 - OPIOID DEPENDENCE, UNCOMPLICATED Status: Chronic Current Visit: Yes (5) Diabetes mellitus SNOMED Code(s): 19803109 ICD Code: E11.9 - TYPE 2 DIABETES MELLITUS WITHOUT COMPLICATIONS Status: Chronic Current Visit: No Qualifiers: Diabetes mellitus type: type 2 Diabetes mellitus ocean transportation intermediary insulin use: with ocean transportation intermediary use (6) Hypertension SNOMED Code(s): 53958395 ICD Code: I10 - ESSENTIAL (PRIMARY) HYPERTENSION Status: Chronic Current Visit: No Qualifiers: Hypertension type: essential hypertension Qualified Code(s): I10 - Essential (primary) hypertension (7) Schizophrenia SNOMED Code(s): 85686703 ICD Code: F20.9 - SCHIZOPHRENIA, UNSPECIFIED Status: Chronic Current Visit: No Qualifiers: Schizophrenia type: unspecified Qualified Code(s): F20.9 - Schizophrenia, unspecified (8) Diabetic foot ulcer SNOMED Code(s): 692682631 ICD Code: E11.621 - TYPE 2 DIABETES MELLITUS WITH FOOT ULCER; L97.509 - NON- PRESSURE CHRONIC ULCER OTH PRT UNSP FOOT W UNSP SEVERITY Status: Acute Current Visit: Yes Problem List Initiated/Reviewed/Updated: Yes Orders Last 24hrs: Active Orders 24 hr Category Date Time Status Admission Status [Patient Status] [ADT] Stat ADT 07/31/19 04:49 Active Transfer Patient (Change bed) [ADT] Routine ADT 07/31/19 08:25 Ordered Accu Check [Blood Glucose Check, Bedside] [RC] TIDAC Care 07/31/19 06:53 Active EKG Documentation Completion [RC] STAT Care 07/31/19 04:26 Active Overnight Pulse Oximetry [RC] Click to Edit Care 07/31/19 06:40 Active RT Aerosol Therapy [RC] ASDIRECTED Care 07/31/19 06:29 Active Telemetry Monitoring [Cardiac Monitoring] [RC] . Care 07/31/19 05:11 Active DIRECTED Vital Signs [RC] Q4H Care 07/31/19 06:40 Active ADA Diabetic [[place] [employer] Diet] [DIET Diet 07/31/19 Breakfast Active ] Chest 1V Frontal [CR] Routine Exams 07/31/19 08:58 Taken CULTURE BLOOD [BC] Stat Lab 07/31/19 04:03 Received CULTURE BLOOD [BC] Stat Lab 07/31/19 04:48 Received CULTURE SPUTUM + SMEAR [RM] Routine Lab 07/31/19 08:28 Ordered UA W/O MICROSCOPIC [URIN] Routine Lab 07/31/19 06:49 Ordered VANCOMYCIN TROUGH [CHEM] Timed Lab 08/02/19 04:00 Ordered Acetaminophen [Tylenol] Med 07/31/19 06:51 Active 650 mg PO Q6H PRN Albuterol/Ipratropium [DuoNeb 3.0-0.5 MG/3 ML] Med 07/31/19 06:26 Active 3 ml NEB Q4HRRT PRN Cefepime [Maxipime in D5W 2 GM/50 ML] 2 gm Med 07/31/19 12:30 Active Premix Bag 1 bag IV Q8H Insulin Aspart [NovoLOG] Med 07/31/19 07:30 Active See Protocol SUBCUT TIDAC Ketorolac [Toradol] Med 07/31/19 06:50 Active 15 mg IVPUSH Q4H PRN Lactated Ringers [Ringers, Lactated] 1,000 ml Med 07/31/19 06:45 Active IV ASDIRECTED Levofloxacin/Dextrose 5%-Water [Levaquin in D5W 750 MG/ Med 08/01/19 07:00 Active 150 ML] 750 mg Premix Bag 1 bag IV Q24H Norepinephrine Bit/0.9 % NaCl [Norepinephr-0.9% NaCl 4 Med 07/31/19 08:30 Active mg/250] 4 mg in 250 ml IV TITRATE Sodium Chloride 0.9% [Normal Saline] Med 07/31/19 04:04 Active 10 ml IV ASDIRECTED PRN Sodium Chloride 0.9% [Saline Flush] Med 07/31/19 04:04 Active 10 ml FLUSH ASDIRECTED PRN Sodium Chloride 0.9% [Saline Flush] Med 07/31/19 04:04 Active 2.5 ml FLUSH ASDIRECTED PRN Vancomycin 1.25 gm Med 07/31/19 17:00 Active Sodium Chloride 0.9% [Normal Saline] 250 ml IV Q12H Blood Culture x2 Reflex Set [OM.PC] Stat Ot 07/31/19 04:39 Ordered Peripheral IV Insertion Adult [OM.PC] Stat Ot 07/31/19 04:04 Ordered Pulse Oximetry Continuous Monitoring [OM.PC] Routine Oth 07/31/19 06:39 Ordered Resuscitation Status Routine Resus Stat 07/31/19 08:28 Ordered Medication Orders Acetaminophen (Tylenol) 650 mg PO Q6H PRN PRN Reason: fever/pain Albuterol/Ipratropium (Duoneb 3.0-0.5 Mg/3 Ml) 3 ml NEB Q4HRRT PRN PRN Reason: Dyspnea Lactated Ringer's (Ringers, Lactated) 1,000 mls @ 125 mls/hr IV ASDIRECTED JAZMIN Vancomycin HCl 1.25 gm/ Sodium (Chloride) 250 mls @ 166.667 mls/hr IV Q12H JAZMIN Levofloxacin/Dextrose 750 mg/ (Premix) 150 mls @ 100 mls/hr IV Q24H JAZMIN Cefepime HCl 2 gm/ Premix 50 mls @ 100 mls/hr IV Q8H [facility] Norepinephrine Bitartrate (Norepinephr-0.9% Nacl 4 Mg/250) 4 mg in 250 mls @ 7.5 mls/hr IV TITRATE [facility]; Protocol Insulin Aspart (Novolog) 0 unit SUBCUT TIDAC [facility]; Protocol Last Admin: 07/31/19 06:59 Dose: Not Given Ketorolac Tromethamine (Toradol) 15 mg IVPUSH Q4H PRN PRN Reason: Pain Stop: 08/05/19 06:50 Sodium Chloride (Saline Flush) 10 ml FLUSH ASDIRECTED PRN PRN Reason: Keep Vein Open Last Admin: 07/31/19 04:16 Dose: 10 ml Sodium Chloride (Saline Flush) 2.5 ml FLUSH ASDIRECTED PRN PRN Reason: Keep Vein Open Last Admin: 07/31/19 04:16 Dose: 2.5 ml Sodium Chloride (Normal Saline) 10 ml IV ASDIRECTED PRN PRN Reason: IV Use Assessment/Plan Comment:: This 59 year old male admitted with sepsis and severe CAP 1. Septic shock d/t severe CAP - Transfer to ICU, started on Levophed gtt due to sepsis and hypotension. Titrate as needed keep MAP >65 - BC and sputum cultures pending. Will obtain UA. Wound looks clean for now no purulent drainage. - Continue broad spectrum antibiotics, Levaquin, Cefepime and Vancomycin - Arterial line and Central Line in place this morning by Dr Bey and Lopez MENDEZ. Appreciate their assistance. - Influenza negative. -Will obtain ECHO and Chest CT ordered per EICU to further evaluate pneumonia. - Oxygen to keep sats >92% - Obtain Hepatitis Panel and HIV - Procalcitonin pending, send out lab - CRP elevated - Question aspiration pneumonia due to sedation with narcotics at home?? 2. DM foot ulcer: - Continue Wound care with Silver dressing daily. - CRP elevated - MRI 07/13/19 showed no signs of osteomyelitis. Fiance and patient report this looks much improved. Pain has not increased per se, it has remained elevated. Reports the Dilaudid 8 mg helps with the pain. - Restart Gabapentin, pain sounds much like nerve pain. 3. Narcotic dependence - Has been taking medications inappropriately at home, concern for narcotic overdose and now withdrawal. Monitor closely. - Morphine did not help, will start Dilaudid 2 mg IV every 4 hours PRN - Toradol PRN IV as well for pain, patient has refused in past. - Has threatened to leave if Dilaudid isn't given. - Discussed at length we need to be safe due to sepsis and pain medications. Becomes agitated. But is understanding for now. 4. Schizoaffective disorder: - Stabilize and restart home medications. VTE prophylaxis: Heparin GI prophylaxis: Protonix CODE status: FULL CODE Dispo: 3 days - Mortality Measure Prognosis:: Good
--- NOTE | 2019-07-31 09:56 | CR ---
Chest: Portable view of the chest was obtained. Comparison: Prior chest x-ray of performed earlier on the same day (4:21 AM). Increased density throughout the right mid and lower lung is seen. Mild left-sided perihilar markings are noted which are increased. Findings appear fairly stable from earlier exam. Heart is normal in size. Upper mediastinum is normal. Impression: 1. Probable left-sided bronchitis with right-sided diffuse pneumonia. Please correlate that patient has infectious symptoms. 2. No other acute finding is appreciated. Note: No significant change from previous study. Diagnostic code #3 This report was dictated in [place] Standard Time
--- NOTE | 2019-07-31 10:09 | PCM.SN ---
- Free Text/Narrative Note: Called to rapid response for patient who is lethargic, hypotensive, and tachycardic. Levophed had been started on my arrival. Patients blood pressure had improved to SBP 90's. Patient was consented for arterial line and central venous line. Line will be placed once transferred to ICU. See Dr Bey's note for CVL placement. Arterial Line Procedure note Risks and benefits were explained to patient; at this time he wishes to proceed. Lt radial artery was palpated; weak. Adequate collateral blood flow was appreciated as well. Left wrist was prepped and draped in sterile fashion with betadine. 2% Lidocaine 1mL was infiltrated for local anesthesia. 20g Arrow catheter was then introduced into the left radial artery. Guidewire advanced with ease and catheter advanced over the wire without difficulty. Catheter was then transduced with showed good pulsatile blood return and good arterial waveform. Catheter was secured with tape, tegaderm, and armboard. Pt tolerated procedure without difficulty; no complications were noted. Anesthesia Time - [id number]
--- NOTE | 2019-07-31 10:11 | CR ---
Chest: Portable view of the chest is obtained. Comparison: Prior chest x-ray performed earlier on the same day (8:56 AM). Right jugular line is seen. Tip lies within the superior aspect of the superior vena cava. Line could be advanced by about 7-8 cm for more optimal positioning. Increased density is again seen within both lungs. Heart size and mediastinum are stable. Bony structures are grossly intact. Impression: 1. Increased density within both sides of the chest which is felt to be fairly stable from earlier study when allowing for differences in positioning. 2. Right sided jugular line within these superior aspect of the superior vena cava. As mentioned above, this line could be advanced by 7-8 cm for more optimal positioning. 3. No additional abnormality is appreciated. Diagnostic code #3 This report was dictated in [place] Standard Time
[2019-07-31] MEDS ORDERED: Morphine 4 MG/ML Syringe IVPUSH PRN (10:20)
[2019-07-31] MEDS ORDERED: Naloxone 0.4 MG/ML Syringe IVPUSH PRN (10:20)
--- NOTE | 2019-07-31 11:02 | PN ---
PRESTON Physician - Brief Progress [id number]/21/2020 10:42[facility] Monisha Stoddard, SERGEI - MWN (ALMN) - MWN ELIZABET PATTERSONDate of Service 07/31/2019 10:42HPI/Events of Note eICU admission note:59-year-old male with history of psych disorder and diabetes mellitus ty pe 2 with chronic leg wound growing out group A strep since the beginning of July, presents with change in mental status. Patient was found to be hypotensive requiring arterial line and central gemma e placement. He received sepsis bolus fluids, but remained hypotensive therefore started on Levophed at 2 mics.The patient's chest x-ray does show bilateral patchy infiltrates, but he has no white coun t and no lactic acid release. Patient does have a chronic lower extremity wound that is supposedly h ealing which she was on antibiotics for outpatient, but he grew out group A strep on July 12, 2019 as reviewed in the EMR.The patient arrived to the ER with a temperature of 102 xF and intermittent c onfusion.On video screen monitor exam:59-year-old male no acute distressVital signs: Heart rate 108 r espiratory 14 SPO2 92% blood pressure 106/57eICU assessment:Shock of undetermined origin favoring sep tic shock secondary to changes in chest x-rayBilateral infiltrative process on chest x-rayDiabetes me llitus type 2 with chronic leg wound history of group A strepToxic metabolic encephalopathyFeverHypox emic respiratory failureTobacco abuse with questionable COPDUnderlying psych disorder unknown subtype eICU recommendations:Maintain map greater than 65Agree with Levophed grateful for central line and ar terial line placements from bedside providersLactate is 0.9Wound care to chronic lower extremityWould appreciate CT scan to quantify infiltrative process concern for emboli if leg is chronically infecte d high risk for endocarditisIf patient has not had an echocardiogram at age 59 would appreciate echoc ardiogramMaintain SPO2 greater than 92%Blood cultures, urine cultures and wound cultures to be collec tedNegative for influenzaCheck CRPCheck procalcitoninIf patient has never had screening for HIV or he patitis C this should be included in his hospital stayAppropriate vaccination schedule for 59-year-ol d maleGI DVT prophylaxisPlease call with any changes/recommendations that are neededInterventions Ollie or-Sepsis - evaluation and managementMinor-Communication with other healthcare providers and/or famil y, Routine modifications to care plan (e.g. PRN medications for pain, fever)
[2019-07-31] MEDS: Midodrine 5 MG Tab PO SCH ×2 (11:48→17:18)
[2019-07-31] MEDS: Ketorolac 15 MG/ML SDV IVPUSH PRN ×2 (11:52→18:39)
--- NOTE | 2019-07-31 13:12 | PN ---
[facility] Physician - Brief Progress [id number]/21/2020 13:08[facility] Monisha pierre, SERGEI - PAVITHRA (SHE) - ELIZABET BRANTLEYDate of Service 07/31/2019 13:08HPI/Events of Note Sepsis Reassessment Focused ExamPatient examined via telepresence with assistance of bedside RN: Nurse Practioner I have performed a sepsis reassessment focused exam. Physical exam/systems review findings and plan: Patient profusing wellAwaiting CTWork up in progress.Interventions Major- Sepsis - evaluation and managementMinor-Communication with other healthcare providers and/or family, Routine modifications to care plan (e.g. PRN medications for pain, fever)
--- NOTE | 2019-07-31 13:25 | OR ---
SURGEON: QUIN BEY MD DATE OF PROCEDURE: 07/31/2019 PREOPERATIVE DIAGNOSIS: Septic shock. POSTOPERATIVE DIAGNOSIS: Septic shock. PROCEDURE PERFORMED: Insertion of right internal jugular triple-lumen central line. PRIMARY SURGEON: Quin Bey MD. ANESTHESIA: Local. ESTIMATED BLOOD LOSS: 5 mL. COMPLICATIONS: None. INDICATIONS: The patient is a 59-year-old male who presents with pneumonia and in septic shock. He is a difficult venous access and is in need of central line placement. The patient and I discussed the procedure; expected perioperative course; as well as the risks including bleeding, infection, or damage to surrounding structures. The patient verbalized understanding and wishes to proceed. PROCEDURE IN DETAIL: The patient was met in the ICU. He was lying in his ICU bed. A time-out was completed verifying the patient's name, age, date of , allergies, and procedure to be performed. The patient was placed into Trendelenburg position with his head turned slightly to the left. An ultrasound was used to verify the vascular anatomy of the right side of the neck. I clearly identified the right internal jugular vein as well as the right carotid. The neck was prepped and draped in usual standard fashion. With a sterile ultrasound, I reidentified the vascular anatomy of the right side of the neck. I anesthetized the area overlying the right internal jugular vein with 1% lidocaine plain. 4 mL was used. Then, using ultrasound guidance, I placed a guide needle into the internal jugular vein. An immediate return of venous blood was noted. A guidewire was placed down this into the internal jugular vein. The guide needle was removed. Ultrasound was used to verify placement of the guidewire into the internal jugular vein. Upon advancing the guidewire, a small amount of ectopy was noted. The catheter was then pulled back. An 11 blade was used to make a hitesh overlying the skin at the guidewire insertion site. A dilator was placed over the guidewire, used to dilate up the vascular tract. This was removed and a triple-lumen central line was then placed over the guidewire and guided into place at 16 cm at the skin. The guidewire was removed. Brisk venous blood was aspirated from all three ports. The catheters were then flushed with sterile normal saline. The catheter was then secured to the skin using a 3-0 silk suture on either side of the catheter device. Sterile dressings were applied. A chest x-ray was done immediately after the procedure, which showed the catheter tip in the SVC. No immediate complications were noted. The patient tolerated the procedure well. VICENTE LESTER /[id number]
[2019-07-31] MEDS: Cefepime 2 GM in Premix Bag 1 BAG IV SCH ×2 (13:38→20:17)
--- NOTE | 2019-07-31 13:56 | CT ---
CT chest Technique: Multiple axial sections through the chest were obtained. Intravenous contrast was not utilized. Comparison: Prior chest x-ray performed earlier on same day (9:48 AM). Patchy areas of increased density are seen on both sides of the chest. Findings worse on the right side. Right-sided findings involve both right upper and right lower lungs as well as right middle lobe. Findings on the left side involve left upper lung with lesser change within the left lower lobe. Mildly prominent mediastinal lymph nodes are seen possibly reactive from the lung process. Follow-up will be needed. Focal area of extrapleural fat seen within the left midlung which is believed to be incidental. Visualized upper abdominal structures shows no discrete abnormality. Bone window settings appear within normal limits. Central line is seen terminating within the superior aspect of the superior vena cava Impression: 1. Patchy areas of increased density in both sides of the chest, worse on the right side. Findings presumably are due to multifocal pneumonia. Please correlate that patient has infectious symptoms. Findings appear much worse than appreciated on chest x-ray. 2. Increased size of mediastinal lymph nodes possibly reactive from the lung process. Recommend repeat noncontrast chest CT study in 6-8 weeks to make sure lymph nodes decreased in size. Diagnostic code #5 Study was dictated in [place] Standard Time
[2019-07-31] MEDS: Pantoprazole 40 MG in Sodium Chloride 0.9% 10 ML IV SCH (14:07)
[2019-07-31] MEDS: HYDROmorphone 2 MG/ML Syringe IVPUSH PRN ×3 (14:21→22:45)
[2019-07-31] MEDS ORDERED: Tamsulosin 0.4 MG Cap.ER PO ONE (16:26)
[2019-07-31] MEDS: Heparin Sodium 5,000 Units/ML Vial SUBCUT SCH ×2 (17:15→23:45)
[2019-07-31] MEDS: Temazepam 15 MG Cap PO PRN (23:47)
--- NOTE | 2019-08-01 03:36 | PN ---
THC Physician - Brief Progress [id number]/22/2020 03:35[facility] ignacio [place], SERGEI - PAVITHRA [facility] - ELIZABET BRANTLEYDate of Service 08/01/2019 03:35HPI/Events of Note SBP > 150 to 170. eating fine.DC NS. watch BP.Interventions Intermediate-Hypertension - eval uation and management
[2019-08-01] MEDS: Cefepime 2 GM in Premix Bag 1 BAG IV SCH ×3 (04:29→20:11)
[2019-08-01] MEDS: HYDROmorphone 2 MG/ML Syringe IVPUSH PRN ×5 (04:31→20:47)
[2019-08-01] MEDS: Levofloxacin/Dextrose 5%-Water 750 MG in Premix Bag 1 BAG IV SCH (06:38)
[2019-08-01 06:40] LABS: BLOOD UREA NITROGEN,BUN 9 mg/dL (7.0-18.0); CARBON DIOXIDE,CO2 27.6 mmol/L (21.0-32.0); CHLORIDE,CL 103 mmol/L (98-107); GLUCOSE RANDOM 190 mg/dL (74-106); SODIUM,NA 138 mmol/L (136-148)
[2019-08-01] MEDS ORDERED: Magnesium Sulfate/Water 2 GM in Premix Bag 1 BAG IV ONE (07:27)
[2019-08-01] MEDS: Midodrine 5 MG Tab PO SCH ×2 (07:33→12:34)
[2019-08-01] MEDS: Albuterol/Ipratropium 3.0-0.5 MG/3 ML Neb Soln NEB PRN (07:38)
[2019-08-01] MEDS: Insulin Aspart 100 Units/ML 3 ML Pen SUBCUT SCH ×3 (07:39→18:22)
[2019-08-01] MEDS: Ketorolac 15 MG/ML SDV IVPUSH PRN ×2 (07:42→14:32)
--- NOTE | 2019-08-01 08:50 | PN ---
THC Physician - Brief Progress [id number]/22/2020 08:42[facility] Monisha pierre, SERGEI - PAVITHRA (SHE) - PAVITHRA ROSEELIZABET VALLEGucciDate of Service 08/01/2019 08:42HPI/Events of Note eICU progress [id number] M with psych disorder and DM2 presented with acute encephalopathy and septic shock likely secondary PNA. Patient was found to be hypertensive overnight and his maitenance fluids were d/c'd. No other acute issues. On camera patient sitting up in bed, nasal canula presents , conversing with bedside team Vitals reviewedLabs/EMR/Imaging reviewedSeptic shock- Procal 8 and mariya ateral infiltrates on chest imaging- Resp cultures with positive gram stain, awaiting cultures for sp eciation- Will recommend continuing Vanc/Cefepime. If cultures have insufficient growth, will recomme nd to complete 7 day course. Hypertension- Patient on midodrine- started for septic shock. Will recom mend to d/c now given resolution of hypotension. DVT prophy-heparinGI prophy- PPIInterventions Major- Hypertension - evaluation and management, Infection - evaluation and management, Sepsis - evaluation and management
--- NOTE | 2019-08-01 09:06 | CR ---
Chest: Portable view of the chest was obtained. Comparison: Prior chest CT study of 07/31/19 and chest x-ray of 07/31/19. Increasing density from prior chest x-ray seen throughout the right chest and within the left mid chest. Findings are felt to be slightly increased in amount from previous chest CT as well. Right-sided jugular line is seen with tip lying within the superior vena cava. Heart size and mediastinum are normal. Bony structures are grossly intact. Impression: 1. Increasing parenchymal density throughout the right lung and with the left midlung. Findings presumably representing worsening pneumonia. 2. Satisfactory position of right jugular line. Diagnostic code #3 This report was dictated in [place] [employer]
[2019-08-01] MEDS ORDERED: Polyethylene Glycol 3350 Powder 17 GM Packet PO PRN (10:33)
[2019-08-01] MEDS ORDERED: Docusate Sodium 100 MG Cap PO PRN (10:33)
[2019-08-01] MEDS: Heparin Sodium 5,000 Units/ML Vial SUBCUT SCH ×2 (11:10→18:13)
[2019-08-01] MEDS: LORazepam 2 MG/ML SDV IVPUSH PRN ×2 (11:12→19:31)
[2019-08-01] MEDS: Nicotine 14 MG/24 Hr Patch TRDERM SCH (11:13)
[2019-08-01] MEDS ORDERED: Iopamidol 755 MG/ML 500 ML Multipack Bottle IVPUSH STA (12:22)
[2019-08-01] MEDS: Pantoprazole 40 MG in Sodium Chloride 0.9% 10 ML IV SCH (12:33)
--- NOTE | 2019-08-01 12:48 | CT ---
CT chest Technique: Multiple axial sections through the chest were obtained. Intravenous contrast was utilized. Study has been performed as a pulmonary angiogram protocol. Findings: Pulmonary arteries are moderately well-opacified. No filling defects are seen within the main or segmental branches or proximal subsegmental branches. Mildly prominent mediastinal lymph nodes are again noted. No pericardial thickening is seen. Small portion of the visualized abdominal structures show nothing acute. Diffuse parenchymal opacities are seen throughout the right lung which are worsening from previous exam. Additional areas of increased density are noted within the left upper lung and left lower lung which also are increasing in prominence. Small focal amount of fat within the left pleural space is again noted which is stable. No acute osseous finding is seen. Coronary artery calcification is again noted. On the reconstructed coronal images there is soft tissue density within the right mainstem bronchus measuring 2.1 cm in size. This appears as an interval change from prior exam and is therefore most likely due to mucous plug. Impression: 1. Worsening parenchymal densities within the right and left lungs on prior chest CT. Please correlate if clinical findings are compatible with worsening pneumonia. 2. Continued prominence of mediastinal lymph nodes. Continued follow-up will be needed as lymphoproliferative neoplasm cannot be excluded. 3. No findings of pulmonary embolism is seen within the main, segmental or proximal subsegmental branches. 4. Probable mucous plug within the right mainstem bronchus. Diagnostic code #5 Study was dictated in [place] [employer]
--- NOTE | 2019-08-01 16:53 | PCM.PN ---
<Garrett Rose - Last Filed: 08/01/19 16:47> - General Info Date of Service: 08/01/19 Subjective Update: No acute events overnight. This morning patient was apologetic to medical team for his behavior. Complaining of poor sleep overnight. - Patient Data Vitals - Most Recent: Last Vital Signs Temp 37.7 C 08/01/19 16:00 Pulse 106 H 07/31/19 10:05 Resp 15 08/01/19 08:00 BP 155/69 H 08/01/19 08:00 Pulse Ox 94 L 08/01/19 08:00 Weight - Most Recent: 97.3 kg I&O - Last 24 Hours: Intake & Output 08/01/19 08/01/19 08/01/19 06:59 14:59 22:59 Intake Total 2450 270 550 Output Total 1050 1565 Balance 1400 270 -1015 Lab Results Last 24 Hours: Laboratory Results - last 24 hr 07/31/19 07/31/19 08/01/19 Range/Units 10:45 17:32 06:15 WBC 11.83 H (4.0-11.0) K/uL RBC 3.44 L (4.50-5.90) M/uL Hgb 11.2 L (13.0-17.0) g/dL Hct 32.9 L (38.0-50.0) % MCV 95.6 (80.0-98.0) fL MCH 32.6 H (27.0-32.0) pg MCHC 34.0 (31.0-37.0) g/dL RDW Std Deviation 43.4 (28.0-62.0) fl RDW Coeff of Thor 13 (11.0-15.0) % Plt Count 182 (150-400) K/uL MPV 9.30 (7.40-12.00) fL Neut % (Auto) 86.6 H (48.0-80.0) % Lymph % (Auto) 5.6 L (16.0-40.0) % Tyler % (Auto) 6.8 (0.0-15.0) % Eos % (Auto) 0.9 (0.0-7.0) % Baso % (Auto) 0.1 (0.0-1.5) % Neut # (Auto) 10.3 H (1.4-5.7) K/uL Lymph # (Auto) 0.7 (0.6-2.4) K/uL Tyler # (Auto) 0.8 (0.0-0.8) K/uL Eos # (Auto) 0.1 (0.0-0.7) K/uL Baso # (Auto) 0.0 (0.0-0.1) K/uL Nucleated RBC % 0.0 /100WBC Nucleated RBCs # 0 K/uL Sodium (136-148) mmol/L Potassium (3.5-5.1) mmol/L Chloride (98-107) mmol/L Carbon Dioxide (21.0-32.0) mmol/L BUN (7.0-18.0) mg/dL Creatinine (0.8-1.3) mg/dL Est Cr Clr Drug Dosing mL/min Estimated GFR (MDRD) ml/min Glucose (74-106) mg/dL POC Glucose 184 H (60-110) mg/dL Calcium (8.5-10.1) mg/dL Magnesium (1.8-2.4) mg/dL Procalcitonin 8.04 H (<0.10) ng/mL 08/01/19 08/01/19 08/01/19 Range/Units 06:15 06:16 13:04 WBC (4.0-11.0) K/uL RBC (4.50-5.90) M/uL Hgb (13.0-17.0) g/dL Hct (38.0-50.0) % MCV (80.0-98.0) fL MCH (27.0-32.0) pg MCHC (31.0-37.0) g/dL RDW Std Deviation (28.0-62.0) fl RDW Coeff of Thor (11.0-15.0) % Plt Count (150-400) K/uL MPV (7.40-12.00) fL Neut % (Auto) (48.0-80.0) % Lymph % (Auto) (16.0-40.0) % Tyler % (Auto) (0.0-15.0) % Eos % (Auto) (0.0-7.0) % Baso % (Auto) (0.0-1.5) % Neut # (Auto) (1.4-5.7) K/uL Lymph # (Auto) (0.6-2.4) K/uL Tyler # (Auto) (0.0-0.8) K/uL Eos # (Auto) (0.0-0.7) K/uL Baso # (Auto) (0.0-0.1) K/uL Nucleated RBC % /100WBC Nucleated RBCs # K/uL Sodium 138 (136-148) mmol/L Potassium 4.0 (3.5-5.1) mmol/L Chloride 103 (98-107) mmol/L Carbon Dioxide 27.6 (21.0-32.0) mmol/L BUN 9 (7.0-18.0) mg/dL Creatinine 0.7 L (0.8-1.3) mg/dL Est Cr Clr Drug Dosing 109.93 mL/min Estimated GFR (MDRD) > 60.0 ml/min Glucose 190 H (74-106) mg/dL POC Glucose 201 H 185 H (60-110) mg/dL Calcium 8.7 (8.5-10.1) mg/dL Magnesium 1.4 L (1.8-2.4) mg/dL Procalcitonin (<0.10) ng/mL [place] Results Last 24 Hours: Microbiology 07/31/19 04:48 Aerobic Blood Culture - Preliminary Blood - Venous - Lab Draw NO GROWTH AFTER 1 DAY Anaerobic Blood Culture - Preliminary NO GROWTH AFTER 1 DAY 07/31/19 04:03 Aerobic Blood Culture - Preliminary Blood - Venous NO GROWTH AFTER 1 DAY Anaerobic Blood Culture - Preliminary NO GROWTH AFTER 1 DAY 07/31/19 11:20 Gram Stain - Preliminary Sputum - Expectorated Med Orders - Current: Current Medications Acetaminophen (Tylenol) 650 mg PO Q6H PRN PRN Reason: fever/pain Albuterol/Ipratropium (Duoneb 3.0-0.5 Mg/3 Ml) 3 ml NEB Q4HRRT PRN PRN Reason: Dyspnea Last Admin: 08/01/19 07:38 Dose: 3 ml Docusate Sodium (Colace) 100 mg PO DAILY PRN PRN Reason: Constipation Heparin Sodium (Porcine) (Heparin Sodium) 5,000 units SUBCUT Q8H JAZMIN Hydromorphone HCl (Dilaudid) 2 mg IVPUSH Q4H PRN PRN Reason: Pain Last Admin: 08/01/19 16:29 Dose: 2 mg Levofloxacin/Dextrose 750 mg/ (Premix) 150 mls @ 100 mls/hr IV Q24H [facility] Last Admin: 08/01/19 06:38 Dose: 100 mls/hr Cefepime HCl 2 gm/ Premix 50 mls @ 100 mls/hr IV Q8H [facility] Last Admin: 08/01/19 12:48 Dose: 100 mls/hr Norepinephrine Bitartrate (Norepinephr-0.9% Nacl 4 Mg/250) 4 mg in 250 mls @ 7.5 mls/hr IV TITRATE [facility]; Protocol Last Titration: 07/31/19 14:14 Dose: 0 mcg/min, 0 mls/hr Vancomycin HCl 1.25 gm/ Sodium (Chloride) 250 mls @ 166.667 mls/hr IV Q12H [facility] Last Admin: 08/01/19 05:03 Dose: 166.667 mls/hr Pantoprazole Sodium 40 mg/ (Sodium Chloride) 10 mls @ 300 mls/hr IV Q24H [facility] Last Admin: 08/01/19 12:33 Dose: 300 mls/hr Insulin Aspart (Novolog) 0 unit SUBCUT TIDAC [facility]; Protocol Last Admin: 08/01/19 13:06 Dose: 1 unit Ketorolac Tromethamine (Toradol) 30 mg IVPUSH Q6H PRN PRN Reason: Pain Last Admin: 08/01/19 14:32 Dose: 30 mg Lorazepam (Ativan) 1 mg IVPUSH Q8H PRN PRN Reason: Anxiety Last Admin: 08/01/19 11:12 Dose: 1 mg Midodrine (Midodrine) 5 mg PO TIDAC [facility] Last Admin: 08/01/19 12:34 Dose: Not Given Naloxone HCl (Narcan) 0.4 mg IVPUSH ASDIRECTED PRN PRN Reason: narcotic overdose Nicotine (Habitrol) 14 mg TRDERM DAILY [facility] Last Admin: 08/01/19 11:13 Dose: 14 mg Polyethylene Glycol (Miralax) 17 gm PO TID PRN PRN Reason: Constipation Sodium Chloride (Saline Flush) 10 ml FLUSH ASDIRECTED PRN PRN Reason: Keep Vein Open Last Admin: 07/31/19 04:16 Dose: 10 ml Sodium Chloride (Saline Flush) 2.5 ml FLUSH ASDIRECTED PRN PRN Reason: Keep Vein Open Last Admin: 07/31/19 04:16 Dose: 2.5 ml Sodium Chloride (Normal Saline) 10 ml IV ASDIRECTED PRN PRN Reason: IV Use Temazepam (Restoril) 15 mg PO BEDTIME PRN PRN Reason: Insomnia Last Admin: 07/31/19 23:47 Dose: 15 mg Discontinued Medications Acetaminophen (Tylenol) 975 mg PO DAILY ONE Stop: 07/31/19 04:09 Last Admin: 07/31/19 04:13 Dose: 975 mg Heparin Sodium (Porcine) (Heparin Sodium) 5,000 units SUBCUT Q8H [facility]AZMIN Last Admin: 08/01/19 11:10 Dose: 5,000 units Hydromorphone HCl (Dilaudid) 0.5 mg IVPUSH ONETIME ONE Stop: 07/31/19 08:28 Last Admin: 07/31/19 11:45 Dose: Not Given Hydromorphone HCl (Dilaudid) 1 mg IVPUSH ONETIME ONE Stop: 07/31/19 09:10 Last Admin: 07/31/19 11:45 Dose: Not Given Hydromorphone HCl (Dilaudid) 2 mg IVPUSH ONETIME ONE Stop: 07/31/19 09:10 Last Admin: 07/31/19 09:28 Dose: 1 mg Sodium Chloride (Normal Saline) 1,000 mls @ 999 mls/hr IV .Bolus ONE Stop: 07/31/19 05:10 Last Infusion: 07/31/19 04:15 Dose: Infused Sodium Chloride (Normal Saline) 1,000 mls @ 999 mls/hr IV .Bolus ONE Stop: 07/31/19 05:11 Last Admin: 07/31/19 04:16 Dose: 999 mls/hr Cefepime HCl 1 gm/ Premix 50 mls @ 100 mls/hr IV ONETIME ONE Stop: 07/31/19 04:58 Last Admin: 07/31/19 05:04 Dose: 100 mls/hr Levofloxacin/Dextrose 750 mg/ (Premix) 150 mls @ 100 mls/hr IV ONETIME ONE Stop: 07/31/19 05:58 Last Admin: 07/31/19 04:50 Dose: 100 mls/hr Vancomycin HCl 1.5 gm/ Premix 300 mls @ 300 mls/hr IV ONETIME ONE Stop: 07/31/19 05:59 Last Admin: 07/31/19 05:04 Dose: 300 mls/hr Lactated Ringer's (Ringers, Lactated) 1,000 mls @ 125 mls/hr IV ASDIRECTED JAZMIN Last Admin: 07/31/19 19:43 Dose: 125 mls/hr Lactated Ringer's (Ringers, Lactated) 1,000 mls @ 999 mls/hr IV BOLUS ONE Stop: 07/31/19 07:42 Last Admin: 07/31/19 06:56 Dose: 999 mls/hr Vancomycin HCl 1.25 gm/ Sodium (Chloride) 250 mls @ 166.667 mls/hr IV Q12H [facility] Lactated Ringer's (Ringers, Lactated) 1,000 mls @ 999 mls/hr IV .BOLUS ONE Stop: 07/31/19 08:57 Last Admin: 07/31/19 08:33 Dose: 999 mls/hr Sodium Chloride (Normal Saline) 500 mls @ 999 mls/hr IV ONETIME ONE Stop: 07/31/19 09:28 Magnesium Sulfate 2 gm/ Premix 50 mls @ 25 mls/hr IV ONETIME ONE Stop: 08/01/19 09:26 Last Admin: 08/01/19 07:38 Dose: 25 mls/hr Ibuprofen (Motrin) 800 mg PO ONETIME ONE Stop: 07/31/19 04:08 Last Admin: 07/31/19 04:14 Dose: 800 mg Iopamidol (Isovue Multipack-370 (76%)) 50 ml IVPUSH ONETIME STA Stop: 08/01/19 12:23 Last Admin: 08/01/19 12:23 Dose: 50 ml Ketorolac Tromethamine (Toradol) 15 mg IVPUSH Q4H PRN PRN Reason: Pain Stop: 08/05/19 06:50 Lidocaine (Xylocaine-Mpf 2%) Confirm Administered Dose 5 ml .ROUTE .STK-MED ONE Stop: 07/31/19 08:55 Last Admin: 07/31/19 09:37 Dose: 5 ml Morphine Sulfate (Morphine) 4 mg IVPUSH Q4H PRN PRN Reason: Pain Last Admin: 07/31/19 12:03 Dose: 4 mg Tamsulosin HCl (Flomax) 0.4 mg PO ONETIME ONE Stop: 07/31/19 16:27 Last Admin: 07/31/19 17:17 Dose: Not Given Vancomycin HCl (Vancomycin) 1,500 mg IV ONETIME ONE Stop: 07/31/19 04:34 Last Admin: 07/31/19 05:21 Dose: Not Given Vancomycin HCl (Pharmacy To Dose - Vancomycin) 1 dose .XX ASDIRECTED JAZMIN - Exam Quality Assessment: Supplemental Oxygen General: Alert, Oriented, Cooperative, No Acute Distress Lungs: Decreased Breath Sounds, Crackles, Rhonchi Cardiovascular: Regular Rate, Regular Rhythm GI/Abdominal Exam: Normal Bowel Sounds, Soft, Non-Tender Extremities: Other (left ankle wound is dry, no drainage.) Skin: Warm Sepsis Event Note - Evaluation Sepsis Screening Result: Sepsis Risk - Focused Exam Vital Signs: Vital Signs Temp Resp BP Pulse Ox 08/01/19 16:00 37.7 C 08/01/19 12:00 37.4 C 08/01/19 08:00 37.7 C 15 155/69 H 94 L 08/01/19 07:00 20 166/75 H 94 L 08/01/19 06:00 18 152/70 H 93 L 08/01/19 05:00 14 149/69 H 92 L Date Exam was Performed: 08/01/19 Time Exam was Performed: 16:47 - Problem List Review Problem List Initiated/Reviewed/Updated: Yes - My Orders Last 24 Hours: My Active Orders 07/31/19 20:21 Temazepam [Restoril] 15 mg PO BEDTIME PRN 08/01/19 10:33 Docusate Sodium [Colace] 100 mg PO DAILY PRN polyethylene glycoL 3350 [MiraLAX] 17 gm PO TID PRN 08/01/19 10:39 LORazepam [Ativan] 1 mg IVPUSH Q8H PRN 08/01/19 10:45 Nicotine [Habitrol] 14 mg TRDERM DAILY - Plan Plan:: A: 1. Sepsis 2/2 to suspected aspiration pneumonia 2. Narcotic dependence 3. Hypertension 4. Hypomagnesemia 5. PMH Schizoaffective disorder, DM2 p: 1. Patient apparently pulled out his arterial line today. Will not place another since BP stable. will continue to monitor. Will continue with broad spectrum antibiotics, cefepime, levaquin, vancomycin. In addition, will discontinue midodrine since BP have been stable. Replace electrolytes as needed. CT angio of chest was negative for PE but did show worsening pneumonia and lymphadenopathy that will need outpatient follow-up. Continue with current pain regimen. Dispo: 2-3 days. <Lacey Holt - Last Filed: 08/11/19 12:01> - Patient Data Vitals - Most Recent: Last Vital Signs Temp 36.4 C 08/07/19 08:58 Pulse 92 08/07/19 08:58 Resp 18 08/07/19 08:58 BP 126/68 08/07/19 08:58 Pulse Ox 91 L 08/07/19 08:58 Med Orders - Current: Current Medications Discontinued Medications Acetaminophen (Tylenol) 975 mg PO DAILY ONE Stop: 07/31/19 04:09 Last Admin: 07/31/19 04:13 Dose: 975 mg Acetaminophen (Tylenol) 650 mg PO Q6H PRN PRN Reason: fever/pain Last Admin: 08/04/19 13:26 Dose: 650 mg Albuterol/Ipratropium (Duoneb 3.0-0.5 Mg/3 Ml) 3 ml NEB Q4HRRT PRN PRN Reason: Dyspnea Last Admin: 08/05/19 10:32 Dose: 3 ml Amoxicillin/Clavulanate Potassium (Augmentin 875 Mg/125 Mg) 1 tab PO Q12HR JAZMIN Last Admin: 08/05/19 08:12 Dose: 1 tab Azithromycin (Zithromax) 500 mg PO Q24H JAZMIN Last Admin: 08/05/19 08:09 Dose: 500 mg Docusate Sodium (Colace) 100 mg PO DAILY PRN PRN Reason: Constipation Heparin Sodium (Porcine) (Heparin Sodium) 5,000 units SUBCUT Q8H JAZMIN Last Admin: 08/01/19 11:10 Dose: 5,000 units Heparin Sodium (Porcine) (Heparin Sodium) 5,000 units SUBCUT Q8H JAZMIN Last Admin: 08/07/19 10:43 Dose: Not Given Hydromorphone HCl (Dilaudid) 0.5 mg IVPUSH ONETIME ONE Stop: 07/31/19 08:28 Last Admin: 07/31/19 11:45 Dose: Not Given Hydromorphone HCl (Dilaudid) 1 mg IVPUSH ONETIME ONE Stop: 07/31/19 09:10 Last Admin: 07/31/19 11:45 Dose: Not Given Hydromorphone HCl (Dilaudid) 2 mg IVPUSH ONETIME ONE Stop: 07/31/19 09:10 Last Admin: 07/31/19 09:28 Dose: 1 mg Hydromorphone HCl (Dilaudid) 2 mg IVPUSH Q4H PRN PRN Reason: Pain Last Admin: 08/03/19 10:30 Dose: 2 mg Hydromorphone HCl (Dilaudid) 4 mg PO Q4H PRN PRN Reason: Pain Last Admin: 08/07/19 10:34 Dose: 4 mg Sodium Chloride (Normal Saline) 1,000 mls @ 999 mls/hr IV .Bolus ONE Stop: 07/31/19 05:10 Last Infusion: 07/31/19 04:15 Dose: Infused Sodium Chloride (Normal Saline) 1,000 mls @ 999 mls/hr IV .Bolus ONE Stop: 07/31/19 05:11 Last Admin: 07/31/19 04:16 Dose: 999 mls/hr Cefepime HCl 1 gm/ Premix 50 mls @ 100 mls/hr IV ONETIME ONE Stop: 07/31/19 04:58 Last Admin: 07/31/19 05:04 Dose: 100 mls/hr Levofloxacin/Dextrose 750 mg/ (Premix) 150 mls @ 100 mls/hr IV ONETIME ONE Stop: 07/31/19 05:58 Last Admin: 07/31/19 04:50 Dose: 100 mls/hr Vancomycin HCl 1.5 gm/ Premix 300 mls @ 300 mls/hr IV ONETIME ONE Stop: 07/31/19 05:59 Last Admin: 07/31/19 05:04 Dose: 300 mls/hr Lactated Ringer's (Ringers, Lactated) 1,000 mls @ 125 mls/hr IV ASDIRECTED [facility] Last Admin: 07/31/19 19:43 Dose: 125 mls/hr Lactated Ringer's (Ringers, Lactated) 1,000 mls @ 999 mls/hr IV BOLUS ONE Stop: 07/31/19 07:42 Last Admin: 07/31/19 06:56 Dose: 999 mls/hr Vancomycin HCl 1.25 gm/ Sodium (Chloride) 250 mls @ 166.667 mls/hr IV Q12H [facility] Levofloxacin/Dextrose 750 mg/ (Premix) 150 mls @ 100 mls/hr IV Q24H [facility] Last Admin: 08/04/19 08:01 Dose: Not Given Cefepime HCl 2 gm/ Premix 50 mls @ 100 mls/hr IV Q8H [facility] Last Admin: 08/04/19 14:39 Dose: Not Given Lactated Ringer's (Ringers, Lactated) 1,000 mls @ 999 mls/hr IV .BOLUS ONE Stop: 07/31/19 08:57 Last Admin: 07/31/19 08:33 Dose: 999 mls/hr Norepinephrine Bitartrate (Norepinephr-0.9% Nacl 4 Mg/250) 4 mg in 250 mls @ 7.5 mls/hr IV TITRATE [facility]; Protocol Last Titration: 07/31/19 14:14 Dose: 0 mcg/min, 0 mls/hr Sodium Chloride (Normal Saline) 500 mls @ 999 mls/hr IV ONETIME ONE Stop: 07/31/19 09:28 Vancomycin HCl 1.25 gm/ Sodium (Chloride) 250 mls @ 166.667 mls/hr IV Q12H [facility] Last Admin: 08/01/19 18:14 Dose: 166.667 mls/hr Pantoprazole Sodium 40 mg/ (Sodium Chloride) 10 mls @ 300 mls/hr IV Q24H [facility] Last Admin: 08/04/19 14:40 Dose: Not Given Magnesium Sulfate 2 gm/ Premix 50 mls @ 25 mls/hr IV ONETIME ONE Stop: 08/01/19 09:26 Last Admin: 08/01/19 07:38 Dose: 25 mls/hr Vancomycin HCl 1.25 gm/ Sodium (Chloride) 250 mls @ 166.667 mls/hr IV Q8H [facility] Last Admin: 08/04/19 14:40 Dose: Not Given Magnesium Sulfate 4 gm/ Premix 100 mls @ 33.333 mls/hr IV ONETIME ONE Stop: 08/02/19 14:55 Last Admin: 08/02/19 13:34 Dose: 33.333 mls/hr Magnesium Sulfate 2 gm/ Premix 50 mls @ 50 mls/hr IV ONETIME ONE Stop: 08/03/19 09:00 Last Admin: 08/03/19 13:10 Dose: 50 mls/hr Magnesium Sulfate 4 gm/ Premix 100 mls @ 33.333 mls/hr IV ONETIME ONE Stop: 08/04/19 10:48 Last Admin: 08/04/19 08:18 Dose: Not Given Ibuprofen (Motrin) 800 mg PO ONETIME ONE Stop: 07/31/19 04:08 Last Admin: 07/31/19 04:14 Dose: 800 mg Insulin Aspart (Novolog) 0 unit SUBCUT TIDAC [facility]AZMIN; Protocol Last Admin: 08/03/19 13:36 Dose: 3 unit Insulin Aspart (Novolog) 0 unit SUBCUT TIDAC [facility]; Protocol Last Admin: 08/07/19 11:35 Dose: Not Given Insulin Glargine (Lantus Solostar) 15 units SUBCUT BEDTIME JAZMIN Last Admin: 08/01/19 22:54 Dose: 15 units Insulin Glargine (Lantus Solostar) 20 units SUBCUT BEDTIME JAZMIN Last Admin: 08/02/19 20:45 Dose: 20 unit Insulin Glargine (Lantus Solostar) 28 units SUBCUT BEDTIME JAZMIN Last Admin: 08/03/19 20:51 Dose: 28 units Insulin Glargine (Lantus Solostar) 35 units SUBCUT BEDTIME [facility]AZMIN Insulin Glargine (Lantus Solostar) 40 units SUBCUT BEDTIME JAZMIN Last Admin: 08/06/19 21:11 Dose: 40 units Iopamidol (Isovue Multipack-370 (76%)) 50 ml IVPUSH ONETIME STA Stop: 08/01/19 12:23 Last Admin: 08/01/19 12:23 Dose: 50 ml Ketorolac Tromethamine (Toradol) 15 mg IVPUSH Q4H PRN PRN Reason: Pain Stop: 08/05/19 06:50 Ketorolac Tromethamine (Toradol) 30 mg IVPUSH Q6H PRN PRN Reason: Pain Last Admin: 08/03/19 03:39 Dose: 30 mg Ketorolac Tromethamine (Toradol) 30 mg IVPUSH Q6H PRN PRN Reason: Pain Levofloxacin (Levaquin) 750 mg PO Q24H [facility] Last Admin: 08/07/19 08:39 Dose: 750 mg Lidocaine (Xylocaine-Mpf 2%) Confirm Administered Dose 5 ml .ROUTE .STK-MED ONE Stop: 07/31/19 08:55 Last Admin: 07/31/19 09:37 Dose: 5 ml Linezolid (Zyvox) 600 mg PO Q12H [facility] Last Admin: 08/07/19 08:35 Dose: 600 mg Lisinopril (Prinivil) 20 mg PO DAILY [facility] Last Admin: 08/07/19 08:39 Dose: 20 mg Lisinopril (Prinivil) 20 mg PO ONETIME ONE Stop: 08/01/19 23:01 Last Admin: 08/01/19 22:55 Dose: 20 mg Lorazepam (Ativan) 1 mg IVPUSH Q8H PRN PRN Reason: Anxiety Last Admin: 08/01/19 19:31 Dose: 1 mg Lorazepam (Ativan) 1 mg IVPUSH Q6H PRN PRN Reason: Anxiety Last Admin: 08/03/19 08:14 Dose: 1 mg Magnesium Oxide (Magnesium Oxide) 400 mg PO ONETIME ONE Stop: 08/04/19 08:05 Last Admin: 08/04/19 08:52 Dose: 400 mg Midodrine (Midodrine) 5 mg PO TIDAC [facility] Last Admin: 08/01/19 12:34 Dose: Not Given Morphine Sulfate (Morphine) 4 mg IVPUSH Q4H PRN PRN Reason: Pain Last Admin: 07/31/19 12:03 Dose: 4 mg Naloxone HCl (Narcan) 0.4 mg IVPUSH ASDIRECTED PRN PRN Reason: narcotic overdose Nicotine (Habitrol) 14 mg TRDERM DAILY [facility] Last Admin: 08/07/19 08:40 Dose: 14 mg Pantoprazole Sodium (Protonix) 40 mg PO ACBREAKFAST [facility] Last Admin: 08/07/19 06:33 Dose: 40 mg Polyethylene Glycol (Miralax) 17 gm PO TID PRN PRN Reason: Constipation Potassium Chloride (Klor-Con M20) 40 meq PO ONETIME ONE Stop: 08/02/19 11:55 Last Admin: 08/02/19 12:40 Dose: 40 meq Sodium Chloride (Saline Flush) 10 ml FLUSH ASDIRECTED PRN PRN Reason: Keep Vein Open Last Admin: 07/31/19 04:16 Dose: 10 ml Sodium Chloride (Saline Flush) 2.5 ml FLUSH ASDIRECTED PRN PRN Reason: Keep Vein Open Last Admin: 07/31/19 04:16 Dose: 2.5 ml Sodium Chloride (Normal Saline) 10 ml IV ASDIRECTED PRN PRN Reason: IV Use Tamsulosin HCl (Flomax) 0.4 mg PO ONETIME ONE Stop: 07/31/19 16:27 Last Admin: 07/31/19 17:17 Dose: Not Given [facility] Last Admin: 08/07/19 08:38 Dose: Not Given Temazepam (Restoril) 15 mg PO BEDTIME PRN PRN Reason: Insomnia Last Admin: 08/06/19 23:19 Dose: 15 mg Vancomycin HCl (Vancomycin) 1,500 mg IV ONETIME ONE Stop: 07/31/19 04:34 Last Admin: 07/31/19 05:21 Dose: Not Given Vancomycin HCl (Pharmacy To Dose - Vancomycin) 1 dose .XX ASDIRECTED [facility] - Problem List & Annotations (1) Diabetic foot ulcer SNOMED Code(s): 251931213 Code(s): E11.621 - TYPE 2 DIABETES MELLITUS WITH FOOT ULCER; L97.509 - NON- PRESSURE CHRONIC ULCER OTH PRT UNSP FOOT W UNSP SEVERITY Status: Acute (2) Pneumonia SNOMED Code(s): 575159490 Code(s): J18.9 - PNEUMONIA, UNSPECIFIED ORGANISM Status: Acute Qualifiers: Pneumonia type: due to methicillin-resistant Staphylococcus aureus (MRSA) Laterality: right Lung location: unspecified part of lung Qualified Code(s) : J15.212 - Pneumonia due to Methicillin resistant Staphylococcus aureus (3) Sepsis SNOMED Code(s): 74666753 Code(s): A41.9 - SEPSIS, UNSPECIFIED ORGANISM Status: Acute Qualifiers: Sepsis acute organ dysfunction status: with acute organ dysfunction Severe sepsis acute organ dysfunction type: acute respiratory failure Acute respiratory failure type: with hypoxia Severe sepsis shock status: without septic shock (4) Chronic pain SNOMED Code(s): 76408725 Code(s): G89.29 - OTHER CHRONIC PAIN Status: Chronic (5) Narcotic dependence SNOMED Code(s): 242163703 Code(s): F11.20 - OPIOID DEPENDENCE, UNCOMPLICATED Status: Chronic (6) Diabetes mellitus SNOMED Code(s): 42642553 Code(s): E11.9 - TYPE 2 DIABETES MELLITUS WITHOUT COMPLICATIONS Status: Chronic Qualifiers: Diabetes mellitus type: type 2 Diabetes mellitus director of diagnostic imaging insulin use: with director of diagnostic imaging use - Plan Plan:: I have seen and examined the patient with the resident. I have discussed the findings and treatment plan with the resident. I agree with the assessment and plan as outlined in the following note.
[2019-08-01] MEDS: Temazepam 15 MG Cap PO PRN (20:45)
[2019-08-01] MEDS ORDERED: Insulin Glargine,Human Rec. Analog 100 Units/ML 3 ML Pen SUBCUT SCH (23:00)
[2019-08-01] MEDS ORDERED: Lisinopril 10 MG Tab PO ONE (23:00)
[2019-08-02] MEDS: LORazepam 2 MG/ML SDV IVPUSH PRN ×3 (01:19→15:04)
[2019-08-02] MEDS: Heparin Sodium 5,000 Units/ML Vial SUBCUT SCH ×4 (02:45→19:32)
[2019-08-02] MEDS: Cefepime 2 GM in Premix Bag 1 BAG IV SCH ×3 (03:29→19:44)
[2019-08-02] MEDS: HYDROmorphone 2 MG/ML Syringe IVPUSH PRN ×5 (03:34→22:22)
[2019-08-02 04:09] LABS: BLOOD UREA NITROGEN,BUN 7 mg/dL (7.0-18.0); CHLORIDE,CL 101 mmol/L (98-107); GLUCOSE RANDOM 170 mg/dL (74-106); POTASSIUM,K 3.5 mmol/L (3.5-5.1); SODIUM,NA 139 mmol/L (136-148)
[2019-08-02] MEDS: Levofloxacin/Dextrose 5%-Water 750 MG in Premix Bag 1 BAG IV SCH (06:28)
[2019-08-02] MEDS: Insulin Aspart 100 Units/ML 3 ML Pen SUBCUT SCH ×3 (07:55→18:27)
[2019-08-02] MEDS: Lisinopril 10 MG Tab PO SCH (07:59)
[2019-08-02] MEDS: Nicotine 14 MG/24 Hr Patch TRDERM SCH (08:00)
[2019-08-02] MEDS ORDERED: Insulin Glargine,Human Rec. Analog 100 Units/ML 3 ML Pen SUBCUT SCH ×2 (09:00→21:00)
[2019-08-02] MEDS: Ketorolac 15 MG/ML SDV IVPUSH PRN ×2 (09:35→19:25)
[2019-08-02] MEDS: Acetaminophen 325 MG Tab PO PRN ×2 (10:04→17:50)
[2019-08-02] MEDS ORDERED: Lisinopril 10 MG Tab PO ONE ×2 (11:00→23:00)
[2019-08-02] MEDS ORDERED: Potassium Chloride 20 MEQ Tab.ER PO ONE (11:54)
[2019-08-02] MEDS ORDERED: Magnesium Sulfate/Water 4 GM in Premix Bag 1 BAG IV ONE (11:56)
[2019-08-02] MEDS: Pantoprazole 40 MG in Sodium Chloride 0.9% 10 ML IV SCH (13:25)
--- NOTE | 2019-08-02 15:42 | PCM.PN ---
- General Info Date of Service: 08/02/19 Admission Dx/Problem (Free Text): Admission Diagnosis/Problem Admission Diagnosis/Problem Pneumonia Subjective Update: No acute events overnight. sleeping comfortably. Functional Status: Reports: Pain Controlled - Review of Systems General: Reports: Fever. Denies: Weakness, Fatigue Pulmonary: Denies: Shortness of Breath, Pleuritic Chest Pain Cardiovascular: Reports: Dyspnea on Exertion. Denies: Chest Pain, Palpitations , Orthopnea Gastrointestinal: Denies: Abdominal Pain, Constipation, Decreased Appetite Genitourinary: Reports: Frequency. Denies: Dysuria, Burning, Pain, Urgency Musculoskeletal: Reports: Foot Pain. Denies: Neck Pain, Hand Pain, Back Pain - Patient Data Vitals - Most Recent: Last Vital Signs Temp 37.4 C 08/02/19 11:00 Pulse 106 H 07/31/19 10:05 Resp 15 08/02/19 11:00 BP 143/97 H 08/02/19 07:59 Pulse Ox 94 L 08/02/19 11:00 Weight - Most Recent: 98.2 kg I&O - Last 24 Hours: Intake & Output 08/02/19 08/02/19 08/02/19 06:59 14:59 22:59 Intake Total 1200 400 Output Total 820 Balance 380 400 Lab Results Last 24 Hours: Laboratory Results - last 24 hr 07/31/19 08/01/19 08/01/19 Range/Units 04:03 18:19 22:50 WBC (4.0-11.0) K/uL RBC (4.50-5.90) M/uL Hgb (13.0-17.0) g/dL Hct (38.0-50.0) % MCV (80.0-98.0) fL MCH (27.0-32.0) pg MCHC (31.0-37.0) g/dL RDW Std Deviation (28.0-62.0) fl RDW Coeff of Thor (11.0-15.0) % Plt Count (150-400) K/uL MPV (7.40-12.00) fL Neut % (Auto) (48.0-80.0) % Lymph % (Auto) (16.0-40.0) % Rush % (Auto) (0.0-15.0) % Eos % (Auto) (0.0-7.0) % Baso % (Auto) (0.0-1.5) % Neut # (Auto) (1.4-5.7) K/uL Lymph # (Auto) (0.6-2.4) K/uL Rush # (Auto) (0.0-0.8) K/uL Eos # (Auto) (0.0-0.7) K/uL Baso # (Auto) (0.0-0.1) K/uL Nucleated RBC % /100WBC Nucleated RBCs # K/uL Lactate (0.20-2.00) mmol/L Sodium (136-148) mmol/L Potassium (3.5-5.1) mmol/L Chloride (98-107) mmol/L Carbon Dioxide (21.0-32.0) mmol/L BUN (7.0-18.0) mg/dL Creatinine (0.8-1.3) mg/dL Est Cr Clr Drug Dosing mL/min Estimated GFR (MDRD) ml/min Glucose (74-106) mg/dL POC Glucose 165 H 197 H (60-110) mg/dL Calcium (8.5-10.1) mg/dL Magnesium (1.8-2.4) mg/dL Urine Color Urine Appearance Urine pH (5.0-8.0) Ur Specific [place] (1.001-1.035) Urine Protein (NEGATIVE) mg/dL Urine Glucose (UA) (NEGATIVE) mg/dL Urine Ketones (NEGATIVE) mg/dL Urine Occult Blood (NEGATIVE) Urine Nitrite (NEGATIVE) Urine Bilirubin (NEGATIVE) Urine Urobilinogen (<2.0) EU/dL Ur Leukocyte Esterase (NEGATIVE) Urine RBC (0-2/HPF) Urine WBC (0-5/HPF) Ur Epithelial Cells (NONE-FEW) Ur Renal Epithelial Cell Amorphous Sediment (NEGATIVE) Vancomycin Trough (5.0-10.0) ug/mL Hepatitis A IgM Ab Negative (Negative) Hep Bs Antigen Negative (Negative) Hep B Core IgM Ab Negative (Negative) Hepatitis C Antibody 7.9 H (0.0-0.9) s/co ratio 08/02/19 08/02/19 08/02/19 Range/Units 03:55 03:55 03:55 WBC 11.75 H (4.0-11.0) K/uL RBC 3.35 L (4.50-5.90) M/uL Hgb 11.0 L (13.0-17.0) g/dL Hct 31.7 L (38.0-50.0) % MCV 94.6 (80.0-98.0) fL MCH 32.8 H (27.0-32.0) pg MCHC 34.7 (31.0-37.0) g/dL RDW Std Deviation 41.1 (28.0-62.0) fl RDW Coeff of Thor 12 (11.0-15.0) % Plt Count 205 (150-400) K/uL MPV 9.50 (7.40-12.00) fL Neut % (Auto) 84.2 H (48.0-80.0) % Lymph % (Auto) 5.8 L (16.0-40.0) % Rush % (Auto) 8.5 (0.0-15.0) % Eos % (Auto) 1.3 (0.0-7.0) % Baso % (Auto) 0.2 (0.0-1.5) % Neut # (Auto) 9.9 H (1.4-5.7) K/uL Lymph # (Auto) 0.7 (0.6-2.4) K/uL Rush # (Auto) 1.0 H (0.0-0.8) K/uL Eos # (Auto) 0.2 (0.0-0.7) K/uL Baso # (Auto) 0.0 (0.0-0.1) K/uL Nucleated RBC % 0.0 /100WBC Nucleated RBCs # 0 K/uL Lactate (0.20-2.00) mmol/L Sodium 139 (136-148) mmol/L Potassium 3.5 (3.5-5.1) mmol/L Chloride 101 (98-107) mmol/L Carbon Dioxide 28.0 (21.0-32.0) mmol/L BUN 7 (7.0-18.0) mg/dL Creatinine 0.7 L (0.8-1.3) mg/dL Est Cr Clr Drug Dosing 109.93 mL/min Estimated GFR (MDRD) > 60.0 ml/min Glucose 170 H (74-106) mg/dL POC Glucose (60-110) mg/dL Calcium 8.2 L (8.5-10.1) mg/dL Magnesium 1.4 L (1.8-2.4) mg/dL Urine Color Urine Appearance Urine pH (5.0-8.0) Ur Specific [place] (1.001-1.035) Urine Protein (NEGATIVE) mg/dL Urine Glucose (UA) (NEGATIVE) mg/dL Urine Ketones (NEGATIVE) mg/dL Urine Occult Blood (NEGATIVE) Urine Nitrite (NEGATIVE) Urine Bilirubin (NEGATIVE) Urine Urobilinogen (<2.0) EU/dL Ur Leukocyte Esterase (NEGATIVE) Urine RBC (0-2/HPF) Urine WBC (0-5/HPF) Ur Epithelial Cells (NONE-FEW) Ur Renal Epithelial Cell Amorphous Sediment (NEGATIVE) Vancomycin Trough 7.8 (5.0-10.0) ug/mL Hepatitis A IgM Ab (Negative) Hep Bs Antigen (Negative) Hep B Core IgM Ab (Negative) Hepatitis C Antibody (0.0-0.9) s/co ratio 08/02/19 08/02/19 08/02/19 Range/Units 07:04 10:50 11:35 WBC (4.0-11.0) K/uL RBC (4.50-5.90) M/uL Hgb (13.0-17.0) g/dL Hct (38.0-50.0) % MCV (80.0-98.0) fL MCH (27.0-32.0) pg MCHC (31.0-37.0) g/dL RDW Std Deviation (28.0-62.0) fl RDW Coeff of Thor (11.0-15.0) % Plt Count (150-400) K/uL MPV (7.40-12.00) fL Neut % (Auto) (48.0-80.0) % Lymph % (Auto) (16.0-40.0) % Rush % (Auto) (0.0-15.0) % Eos % (Auto) (0.0-7.0) % Baso % (Auto) (0.0-1.5) % Neut # (Auto) (1.4-5.7) K/uL Lymph # (Auto) (0.6-2.4) K/uL Rush # (Auto) (0.0-0.8) K/uL Eos # (Auto) (0.0-0.7) K/uL Baso # (Auto) (0.0-0.1) K/uL Nucleated RBC % /100WBC Nucleated RBCs # K/uL Lactate 0.7 (0.20-2.00) mmol/L Sodium (136-148) mmol/L Potassium (3.5-5.1) mmol/L Chloride (98-107) mmol/L Carbon Dioxide (21.0-32.0) mmol/L BUN (7.0-18.0) mg/dL Creatinine (0.8-1.3) mg/dL Est Cr Clr Drug Dosing mL/min Estimated GFR (MDRD) ml/min Glucose (74-106) mg/dL POC Glucose 167 H 222 H (60-110) mg/dL Calcium (8.5-10.1) mg/dL Magnesium (1.8-2.4) mg/dL Urine Color Urine Appearance Urine pH (5.0-8.0) Ur Specific [place] (1.001-1.035) Urine Protein (NEGATIVE) mg/dL Urine Glucose (UA) (NEGATIVE) mg/dL Urine Ketones (NEGATIVE) mg/dL Urine Occult Blood (NEGATIVE) Urine Nitrite (NEGATIVE) Urine Bilirubin (NEGATIVE) Urine Urobilinogen (<2.0) EU/dL Ur Leukocyte Esterase (NEGATIVE) Urine RBC (0-2/HPF) Urine WBC (0-5/HPF) Ur Epithelial Cells (NONE-FEW) Ur Renal Epithelial Cell Amorphous Sediment (NEGATIVE) Vancomycin Trough (5.0-10.0) ug/mL Hepatitis A IgM Ab (Negative) Hep Bs Antigen (Negative) Hep B Core IgM Ab (Negative) Hepatitis C Antibody (0.0-0.9) s/co ratio 08/02/19 Range/Units 12:10 WBC (4.0-11.0) K/uL RBC (4.50-5.90) M/uL Hgb (13.0-17.0) g/dL Hct (38.0-50.0) % MCV (80.0-98.0) fL MCH (27.0-32.0) pg MCHC (31.0-37.0) g/dL RDW Std Deviation (28.0-62.0) fl RDW Coeff of Thor (11.0-15.0) % Plt Count (150-400) K/uL MPV (7.40-12.00) fL Neut % (Auto) (48.0-80.0) % Lymph % (Auto) (16.0-40.0) % [place] % (Auto) (0.0-15.0) % Eos % (Auto) (0.0-7.0) % Baso % (Auto) (0.0-1.5) % Neut # (Auto) (1.4-5.7) K/uL Lymph # (Auto) (0.6-2.4) K/uL Rush # (Auto) (0.0-0.8) K/uL Eos # (Auto) (0.0-0.7) K/uL Baso # (Auto) (0.0-0.1) K/uL Nucleated RBC % /100WBC Nucleated RBCs # K/uL Lactate (0.20-2.00) mmol/L Sodium (136-148) mmol/L Potassium (3.5-5.1) mmol/L Chloride (98-107) mmol/L Carbon Dioxide (21.0-32.0) mmol/L BUN (7.0-18.0) mg/dL Creatinine (0.8-1.3) mg/dL Est Cr Clr Drug Dosing mL/min Estimated GFR (MDRD) ml/min Glucose (74-106) mg/dL POC Glucose (60-110) mg/dL Calcium (8.5-10.1) mg/dL Magnesium (1.8-2.4) mg/dL Urine Color YELLOW Urine Appearance HAZY Urine pH 7.0 (5.0-8.0) Ur Specific [place] 1.015 (1.001-1.035) Urine Protein NEGATIVE (NEGATIVE) mg/dL Urine Glucose (UA) 100 H (NEGATIVE) mg/dL Urine Ketones 15 H (NEGATIVE) mg/dL Urine Occult Blood NEGATIVE (NEGATIVE) Urine Nitrite NEGATIVE (NEGATIVE) Urine Bilirubin NEGATIVE (NEGATIVE) Urine Urobilinogen 0.2 (<2.0) EU/dL Ur Leukocyte Esterase NEGATIVE (NEGATIVE) Urine RBC 0-2 (0-2/HPF) Urine WBC 0-2 (0-5/HPF) Ur Epithelial Cells RARE (NONE-FEW) Ur Renal Epithelial Cell RARE Amorphous Sediment LIGHT (NEGATIVE) Vancomycin Trough (5.0-10.0) ug/mL Hepatitis A IgM Ab (Negative) Hep Bs Antigen (Negative) Hep B Core IgM Ab (Negative) Hepatitis C Antibody (0.0-0.9) s/co ratio [place] Results Last 24 Hours: Microbiology 07/31/19 11:20 Gram Stain - Final Sputum - Expectorated Sputum Culture - Final Yeast Normal Respiratory Shayy 07/31/19 04:48 Aerobic Blood Culture - Preliminary Blood - Venous - Lab Draw NO GROWTH AFTER 2 DAYS Anaerobic Blood Culture - Preliminary NO GROWTH AFTER 2 DAYS 07/31/19 04:03 Aerobic Blood Culture - Preliminary Blood - Venous NO GROWTH AFTER 2 DAYS Anaerobic Blood Culture - Preliminary NO GROWTH AFTER 2 DAYS Med Orders - Current: Current Medications Acetaminophen (Tylenol) 650 mg PO Q6H PRN PRN Reason: fever/pain Last Admin: 08/02/19 10:04 Dose: 650 mg Albuterol/Ipratropium (Duoneb 3.0-0.5 Mg/3 Ml) 3 ml NEB Q4HRRT PRN PRN Reason: Dyspnea Last Admin: 08/01/19 07:38 Dose: 3 ml Docusate Sodium (Colace) 100 mg PO DAILY PRN PRN Reason: Constipation Heparin Sodium (Porcine) (Heparin Sodium) 5,000 units SUBCUT Q8H JAZMIN Last Admin: 08/02/19 10:05 Dose: 5,000 units Hydromorphone HCl (Dilaudid) 2 mg IVPUSH Q4H PRN PRN Reason: Pain Last Admin: 08/02/19 12:51 Dose: 2 mg Levofloxacin/Dextrose 750 mg/ (Premix) 150 mls @ 100 mls/hr IV Q24H JAZMIN Last Admin: 08/02/19 06:28 Dose: 100 mls/hr Cefepime HCl 2 gm/ Premix 50 mls @ 100 mls/hr IV Q8H JAZMIN Last Admin: 08/02/19 12:41 Dose: 100 mls/hr Norepinephrine Bitartrate (Norepinephr-0.9% Nacl 4 Mg/250) 4 mg in 250 mls @ 7.5 mls/hr IV TITRATE JAZMIN; Protocol Last Titration: 02/21/20 14:14 Dose: 0 mcg/min, 0 mls/hr Pantoprazole Sodium 40 mg/ (Sodium Chloride) 10 mls @ 300 mls/hr IV Q24H [facility] Last Admin: 08/02/19 13:25 Dose: 300 mls/hr Vancomycin HCl 1.25 gm/ Sodium (Chloride) 250 mls @ 166.667 mls/hr IV Q8H [facility] Last Admin: 08/02/19 13:30 Dose: 166.667 mls/hr Insulin Aspart (Novolog) 0 unit SUBCUT TIDAC [facility]; Protocol Last Admin: 08/02/19 11:43 Dose: 2 unit Insulin Glargine (Lantus Solostar) 20 units SUBCUT BEDTIME [facility] Ketorolac Tromethamine (Toradol) 30 mg IVPUSH Q6H PRN PRN Reason: Pain Last Admin: 08/02/19 09:35 Dose: 30 mg Lisinopril (Prinivil) 20 mg PO DAILY [facility] Last Admin: 08/02/19 07:59 Dose: 20 mg Lorazepam (Ativan) 1 mg IVPUSH Q6H PRN PRN Reason: Anxiety Last Admin: 08/02/19 15:04 Dose: 1 mg Naloxone HCl (Narcan) 0.4 mg IVPUSH ASDIRECTED PRN PRN Reason: narcotic overdose Nicotine (Habitrol) 14 mg TRDERM DAILY [facility] Last Admin: 08/02/19 08:00 Dose: 14 mg Polyethylene Glycol (Miralax) 17 gm PO TID PRN PRN Reason: Constipation Sodium Chloride (Saline Flush) 10 ml FLUSH ASDIRECTED PRN PRN Reason: Keep Vein Open Last Admin: 07/31/19 04:16 Dose: 10 ml Sodium Chloride (Saline Flush) 2.5 ml FLUSH ASDIRECTED PRN PRN Reason: Keep Vein Open Last Admin: 07/31/19 04:16 Dose: 2.5 ml Sodium Chloride (Normal Saline) 10 ml IV ASDIRECTED PRN PRN Reason: IV Use Temazepam (Restoril) 15 mg PO BEDTIME PRN PRN Reason: Insomnia Last Admin: 08/01/19 20:45 Dose: 15 mg Discontinued Medications Acetaminophen (Tylenol) 975 mg PO DAILY ONE Stop: 07/31/19 04:09 Last Admin: 07/31/19 04:13 Dose: 975 mg Heparin Sodium (Porcine) (Heparin Sodium) 5,000 units SUBCUT Q8H [facility] Last Admin: 08/01/19 11:10 Dose: 5,000 units Hydromorphone HCl (Dilaudid) 0.5 mg IVPUSH ONETIME ONE Stop: 07/31/19 08:28 Last Admin: 07/31/19 11:45 Dose: Not Given Hydromorphone HCl (Dilaudid) 1 mg IVPUSH ONETIME ONE Stop: 07/31/19 09:10 Last Admin: 07/31/19 11:45 Dose: Not Given Hydromorphone HCl (Dilaudid) 2 mg IVPUSH ONETIME ONE Stop: 07/31/19 09:10 Last Admin: 07/31/19 09:28 Dose: 1 mg Sodium Chloride (Normal Saline) 1,000 mls @ 999 mls/hr IV .Bolus ONE Stop: 07/31/19 05:10 Last Infusion: 07/31/19 04:15 Dose: Infused Sodium Chloride (Normal Saline) 1,000 mls @ 999 mls/hr IV .Bolus ONE Stop: 07/31/19 05:11 Last Admin: 07/31/19 04:16 Dose: 999 mls/hr Cefepime HCl 1 gm/ Premix 50 mls @ 100 mls/hr IV ONETIME ONE Stop: 07/31/19 04:58 Last Admin: 07/31/19 05:04 Dose: 100 mls/hr Levofloxacin/Dextrose 750 mg/ (Premix) 150 mls @ 100 mls/hr IV ONETIME ONE Stop: 07/31/19 05:58 Last Admin: 07/31/19 04:50 Dose: 100 mls/hr Vancomycin HCl 1.5 gm/ Premix 300 mls @ 300 mls/hr IV ONETIME ONE Stop: 07/31/19 05:59 Last Admin: 07/31/19 05:04 Dose: 300 mls/hr Lactated Ringer's (Ringers, Lactated) 1,000 mls @ 125 mls/hr IV ASDIRECTED [facility] Last Admin: 07/31/19 19:43 Dose: 125 mls/hr Lactated Ringer's (Ringers, Lactated) 1,000 mls @ 999 mls/hr IV BOLUS ONE Stop: 07/31/19 07:42 Last Admin: 07/31/19 06:56 Dose: 999 mls/hr Vancomycin HCl 1.25 gm/ Sodium (Chloride) 250 mls @ 166.667 mls/hr IV Q12H JAZMIN Lactated Ringer's (Ringers, Lactated) 1,000 mls @ 999 mls/hr IV .BOLUS ONE Stop: 07/31/19 08:57 Last Admin: 07/31/19 08:33 Dose: 999 mls/hr Sodium Chloride (Normal Saline) 500 mls @ 999 mls/hr IV ONETIME ONE Stop: 07/31/19 09:28 Vancomycin HCl 1.25 gm/ Sodium (Chloride) 250 mls @ 166.667 mls/hr IV Q12H [facility] Last Admin: 08/01/19 18:14 Dose: 166.667 mls/hr Magnesium Sulfate 2 gm/ Premix 50 mls @ 25 mls/hr IV ONETIME ONE Stop: 08/01/19 09:26 Last Admin: 08/01/19 07:38 Dose: 25 mls/hr Magnesium Sulfate 4 gm/ Premix 100 mls @ 33.333 mls/hr IV ONETIME ONE Stop: 08/02/19 14:55 Last Admin: 08/02/19 13:34 Dose: 33.333 mls/hr Ibuprofen (Motrin) 800 mg PO ONETIME ONE Stop: 07/31/19 04:08 Last Admin: 07/31/19 04:14 Dose: 800 mg Insulin Glargine (Lantus Solostar) 15 units SUBCUT BEDTIME JAZMIN Last Admin: 08/01/19 22:54 Dose: 15 units Iopamidol (Isovue Multipack-370 (76%)) 50 ml IVPUSH ONETIME STA Stop: 08/01/19 12:23 Last Admin: 08/01/19 12:23 Dose: 50 ml Ketorolac Tromethamine (Toradol) 15 mg IVPUSH Q4H PRN PRN Reason: Pain Stop: 08/05/19 06:50 Lidocaine (Xylocaine-Mpf 2%) Confirm Administered Dose 5 ml .ROUTE .STK-MED ONE Stop: 07/31/19 08:55 Last Admin: 07/31/19 09:37 Dose: 5 ml Lisinopril (Prinivil) 20 mg PO ONETIME ONE Stop: 08/01/19 23:01 Last Admin: 08/01/19 22:55 Dose: 20 mg Lorazepam (Ativan) 1 mg IVPUSH Q8H PRN PRN Reason: Anxiety Last Admin: 08/01/19 19:31 Dose: 1 mg Midodrine (Midodrine) 5 mg PO TIDAC JAZMIN Last Admin: 08/01/19 12:34 Dose: Not Given Morphine Sulfate (Morphine) 4 mg IVPUSH Q4H PRN PRN Reason: Pain Last Admin: 07/31/19 12:03 Dose: 4 mg Potassium Chloride (Klor-Con M20) 40 meq PO ONETIME ONE Stop: 08/02/19 11:55 Last Admin: 08/02/19 12:40 Dose: 40 meq Tamsulosin HCl (Flomax) 0.4 mg PO ONETIME ONE Stop: 07/31/19 16:27 Last Admin: 07/31/19 17:17 Dose: Not Given Vancomycin HCl (Vancomycin) 1,500 mg IV ONETIME ONE Stop: 07/31/19 04:34 Last Admin: 07/31/19 05:21 Dose: Not Given Vancomycin HCl (Pharmacy To Dose - Vancomycin) 1 dose .XX ASDIRECTED JAZMIN - Exam Quality Assessment: Supplemental Oxygen General: Alert, Oriented, Cooperative Neck: Supple, Trachea Midline Lungs: Normal Respiratory Effort, Decreased Breath Sounds Cardiovascular: Regular Rate, Regular Rhythm GI/Abdominal Exam: Normal Bowel Sounds, Soft, Non-Tender Sepsis Event Note - Evaluation Sepsis Screening Result: Sepsis Risk - Focused Exam Vital Signs: Vital Signs Temp Temp Resp BP BP Pulse Ox 08/02/19 11:00 37.4 C 15 94 L 08/02/19 10:04 38.0 C 08/02/19 10:00 38.0 C 08/02/19 07:59 143/97 H 08/02/19 07:00 37.2 C 14 143/97 H 96 08/02/19 06:00 16 96 08/02/19 05:00 13 96 08/02/19 04:26 134/75 08/02/19 04:00 37.3 C 15 148/89 H 93 L Date Exam was Performed: 08/02/19 Time Exam was Performed: 16:27 - Problem List & Annotations (1) Diabetic foot ulcer SNOMED Code(s): 171170058 Code(s): E11.621 - TYPE 2 DIABETES MELLITUS WITH FOOT ULCER; L97.509 - NON- PRESSURE CHRONIC ULCER OTH PRT UNSP FOOT W UNSP SEVERITY Status: Acute Current Visit: Yes (2) Pneumonia SNOMED Code(s): 307108192 Code(s): J18.9 - PNEUMONIA, UNSPECIFIED ORGANISM Status: Acute Current Visit: Yes (3) Sepsis SNOMED Code(s): 29549486 Code(s): A41.9 - SEPSIS, UNSPECIFIED ORGANISM Status: Acute Current Visit : Yes Qualifiers: Sepsis acute organ dysfunction status: with acute organ dysfunction Severe sepsis acute organ dysfunction type: acute respiratory failure Acute respiratory failure type: with hypoxia Severe sepsis shock status: without septic shock (4) Chronic pain SNOMED Code(s): 06684847 Code(s): G89.29 - OTHER CHRONIC PAIN Status: Chronic Current Visit: Yes (5) Narcotic dependence SNOMED Code(s): 637789507 Code(s): F11.20 - OPIOID DEPENDENCE, UNCOMPLICATED Status: Chronic Current Visit: Yes (6) Diabetes mellitus SNOMED Code(s): 00211187 Code(s): E11.9 - TYPE 2 DIABETES MELLITUS WITHOUT COMPLICATIONS Status: Chronic Current Visit: No Qualifiers: Diabetes mellitus type: type 2 Diabetes mellitus terminal make up operator insulin use: with terminal make up operator use - Problem List Review Problem List Initiated/Reviewed/Updated: Yes - My Orders Last 24 Hours: My Active Orders 08/01/19 22:02 LORazepam [Ativan] 1 mg IVPUSH Q6H PRN 08/02/19 04:30 Vancomycin 1.25 gm Sodium Chloride 0.9% [Normal Saline (AdvBag)] 250 ml IV Q8H 08/02/19 09:00 lisinopriL [Prinivil] 20 mg PO DAILY 08/02/19 10:29 Blood Culture x2 Reflex Set [OM.PC] Stat 08/02/19 10:50 CULTURE BLOOD [BC] Stat 08/02/19 11:05 CULTURE BLOOD [BC] Stat 08/02/19 13:15 Transfer Patient (Change bed) [ADT] Routine Telemetry Monitoring [Cardiac Monitoring] [RC] Q8H 08/02/19 21:00 Insulin Glarg,Human.Rec.Analog [LantUS Solostar] 20 units SUBCUT BEDTIME - Plan Plan:: A: 1. Sepsis 2/2 to suspected aspiration pneumonia 2. Narcotic dependence 3. Hypertension 4. Hypomagnesemia 5. PMH Schizoaffective disorder, DM2 p: CT angio of chest was negative for PE but did show worsening pneumonia and lymphadenopathy continue with broad spectrum antibiotics, cefepime, levaquin, vancomycin. Replace electrolytes as needed. Continue with current pain regimen resume Levemir SSI, Accu checks Monitor and replete electrolytes as needed Wean off oxygen as tolerated Encourage OOB to chair and ambulation Dispo: 1-2 days
[2019-08-02] MEDS: Tamsulosin 0.4 MG Cap.ER PO SCH (19:24)
[2019-08-02] MEDS: Albuterol/Ipratropium 3.0-0.5 MG/3 ML Neb Soln NEB PRN (19:43)
[2019-08-03] MEDS: HYDROmorphone 2 MG/ML Syringe IVPUSH PRN ×3 (02:38→10:30)
[2019-08-03] MEDS: Heparin Sodium 5,000 Units/ML Vial SUBCUT SCH ×3 (02:39→19:46)
[2019-08-03] MEDS: Ketorolac 15 MG/ML SDV IVPUSH PRN (03:39)
[2019-08-03] MEDS: Cefepime 2 GM in Premix Bag 1 BAG IV SCH ×2 (04:03→13:08)
[2019-08-03] MEDS: Levofloxacin/Dextrose 5%-Water 750 MG in Premix Bag 1 BAG IV SCH (06:31)
[2019-08-03 06:40] LABS: BLOOD UREA NITROGEN,BUN 12 mg/dL (7.0-18.0); CARBON DIOXIDE,CO2 24.6 mmol/L (21.0-32.0); CHLORIDE,CL 101 mmol/L (98-107); GLUCOSE RANDOM 272 mg/dL (74-106); POTASSIUM,K 3.9 mmol/L (3.5-5.1); SODIUM,NA 136 mmol/L (136-148)
[2019-08-03] MEDS ORDERED: Magnesium Sulfate/Water 2 GM in Premix Bag 1 BAG IV ONE (08:01)
[2019-08-03] MEDS: Insulin Aspart 100 Units/ML 3 ML Pen SUBCUT SCH ×3 (08:13→17:58)
[2019-08-03] MEDS: LORazepam 2 MG/ML SDV IVPUSH PRN (08:14)
[2019-08-03] MEDS: Lisinopril 10 MG Tab PO SCH (08:15)
[2019-08-03] MEDS: Tamsulosin 0.4 MG Cap.ER PO SCH ×2 (08:15→17:57)
[2019-08-03] MEDS: Nicotine 14 MG/24 Hr Patch TRDERM SCH (08:15)
[2019-08-03] MEDS: Albuterol/Ipratropium 3.0-0.5 MG/3 ML Neb Soln NEB PRN ×3 (09:10→20:14)
--- NOTE | 2019-08-03 09:11 | PCM.PN ---
- General Info Date of Service: 08/03/19 Admission Dx/Problem (Free Text): Admission Diagnosis/Problem Admission Diagnosis/Problem Pneumonia Subjective Update: Feeling better this morning, breathing feels tight this morning. No chest pain. Mild SOB. Reports pain is 6/10 currently, but is easily falling asleep during interview. No other concerns currently Functional Status: Reports: Pain Controlled, Tolerating Diet, Ambulating, Urinating - Review of Systems HEENT: Reports: No Symptoms. Denies: Headaches, Sore Throat Pulmonary: Reports: Shortness of Breath, Cough, Wheezing. Denies: Sputum Cardiovascular: Reports: No Symptoms, Lightheadedness. Denies: Chest Pain Gastrointestinal: Reports: No Symptoms. Denies: Abdominal Pain, Nausea, Vomiting Genitourinary: Reports: No Symptoms. Denies: Dysuria, Frequency Musculoskeletal: Reports: Foot Pain (L foot) Skin: Reports: No Symptoms Neurological: Reports: No Symptoms Psychiatric: Reports: No Symptoms - Patient Data Vitals - Most Recent: Last Vital Signs Temp 96.8 F L 08/03/19 08:00 Pulse 105 H 08/03/19 08:00 Resp 08/03/19 08:00 BP 152/100 H 08/03/19 08:15 Pulse Ox 94 L 08/03/19 08:00 Weight - Most Recent: 97.9 kg I&O - Last 24 Hours: Intake & Output 08/02/19 08/03/19 08/03/19 22:59 06:59 14:59 Intake Total 1867 2350 Output Total 700 680 Balance 1167 1670 Lab Results Last 24 Hours: Laboratory Results - last 24 hr 07/31/19 08/02/19 08/02/19 Range/Units 04:03 10:50 11:35 WBC (4.0-11.0) K/uL RBC (4.50-5.90) M/uL Hgb (13.0-17.0) g/dL Hct (38.0-50.0) % MCV (80.0-98.0) fL MCH (27.0-32.0) pg MCHC (31.0-37.0) g/dL RDW Std Deviation (28.0-62.0) fl RDW Coeff of Thor (11.0-15.0) % Plt Count (150-400) K/uL MPV (7.40-12.00) fL Neut % (Auto) (48.0-80.0) % Lymph % (Auto) (16.0-40.0) % [place] % (Auto) (0.0-15.0) % Eos % (Auto) (0.0-7.0) % Baso % (Auto) (0.0-1.5) % Neut # (Auto) (1.4-5.7) K/uL Lymph # (Auto) (0.6-2.4) K/uL [place] # (Auto) (0.0-0.8) K/uL Eos # (Auto) (0.0-0.7) K/uL Baso # (Auto) (0.0-0.1) K/uL Nucleated RBC % /100WBC Nucleated RBCs # K/uL Lactate 0.7 (0.20-2.00) mmol/L Sodium (136-148) mmol/L Potassium (3.5-5.1) mmol/L Chloride (98-107) mmol/L Carbon Dioxide (21.0-32.0) mmol/L BUN (7.0-18.0) mg/dL Creatinine (0.8-1.3) mg/dL Est Cr Clr Drug Dosing mL/min Estimated GFR (MDRD) ml/min Glucose (74-106) mg/dL POC Glucose 222 H (60-110) mg/dL Calcium (8.5-10.1) mg/dL Magnesium (1.8-2.4) mg/dL Urine Color Urine Appearance Urine pH (5.0-8.0) Ur Specific [place] (1.001-1.035) Urine Protein (NEGATIVE) mg/dL Urine Glucose (UA) (NEGATIVE) mg/dL Urine Ketones (NEGATIVE) mg/dL Urine Occult Blood (NEGATIVE) Urine Nitrite (NEGATIVE) Urine Bilirubin (NEGATIVE) Urine Urobilinogen (<2.0) EU/dL Ur Leukocyte Esterase (NEGATIVE) Urine RBC (0-2/HPF) Urine WBC (0-5/HPF) Ur Epithelial Cells (NONE-FEW) Ur Renal Epithelial Cell Amorphous Sediment (NEGATIVE) Hepatitis A IgM Ab Negative (Negative) Hep Bs Antigen Negative (Negative) Hep B Core IgM Ab Negative (Negative) Hepatitis C Antibody 7.9 H (0.0-0.9) s/co ratio 08/02/19 08/02/19 08/03/19 Range/Units 12:10 18:25 05:45 WBC (4.0-11.0) K/uL RBC (4.50-5.90) M/uL Hgb (13.0-17.0) g/dL Hct (38.0-50.0) % MCV (80.0-98.0) fL MCH (27.0-32.0) pg MCHC (31.0-37.0) g/dL RDW Std Deviation (28.0-62.0) fl RDW Coeff of Thor (11.0-15.0) % Plt Count (150-400) K/uL MPV (7.40-12.00) fL Neut % (Auto) (48.0-80.0) % Lymph % (Auto) (16.0-40.0) % [place] % (Auto) (0.0-15.0) % Eos % (Auto) (0.0-7.0) % Baso % (Auto) (0.0-1.5) % Neut # (Auto) (1.4-5.7) K/uL Lymph # (Auto) (0.6-2.4) K/uL [place] # (Auto) (0.0-0.8) K/uL Eos # (Auto) (0.0-0.7) K/uL Baso # (Auto) (0.0-0.1) K/uL Nucleated RBC % /100WBC Nucleated RBCs # K/uL Lactate (0.20-2.00) mmol/L Sodium 136 (136-148) mmol/L Potassium 3.9 (3.5-5.1) mmol/L Chloride 101 (98-107) mmol/L Carbon Dioxide 24.6 (21.0-32.0) mmol/L BUN 12 (7.0-18.0) mg/dL Creatinine 0.8 (0.8-1.3) mg/dL Est Cr Clr Drug Dosing 96.19 mL/min Estimated GFR (MDRD) > 60.0 ml/min Glucose 272 H (74-106) mg/dL POC Glucose 210 H (60-110) mg/dL Calcium 8.2 L (8.5-10.1) mg/dL Magnesium 1.7 L (1.8-2.4) mg/dL Urine Color YELLOW Urine Appearance HAZY Urine pH 7.0 (5.0-8.0) Ur Specific [place] 1.015 (1.001-1.035) Urine Protein NEGATIVE (NEGATIVE) mg/dL Urine Glucose (UA) 100 H (NEGATIVE) mg/dL Urine Ketones 15 H (NEGATIVE) mg/dL Urine Occult Blood NEGATIVE (NEGATIVE) Urine Nitrite NEGATIVE (NEGATIVE) Urine Bilirubin NEGATIVE (NEGATIVE) Urine Urobilinogen 0.2 (<2.0) EU/dL Ur Leukocyte Esterase NEGATIVE (NEGATIVE) Urine RBC 0-2 (0-2/HPF) Urine WBC 0-2 (0-5/HPF) Ur Epithelial Cells RARE (NONE-FEW) Ur Renal Epithelial Cell RARE Amorphous Sediment LIGHT (NEGATIVE) Hepatitis A IgM Ab (Negative) Hep Bs Antigen (Negative) Hep B Core IgM Ab (Negative) Hepatitis C Antibody (0.0-0.9) s/co ratio 08/03/19 Range/Units 05:45 WBC 10.67 (4.0-11.0) K/uL RBC 3.32 L (4.50-5.90) M/uL Hgb 10.6 L (13.0-17.0) g/dL Hct 31.4 L (38.0-50.0) % MCV 94.6 (80.0-98.0) fL MCH 31.9 (27.0-32.0) pg MCHC 33.8 (31.0-37.0) g/dL RDW Std Deviation 40.9 (28.0-62.0) fl RDW Coeff of Thor 12 (11.0-15.0) % Plt Count 213 (150-400) K/uL MPV 9.70 (7.40-12.00) fL Neut % (Auto) 78.5 (48.0-80.0) % Lymph % (Auto) 8.0 L (16.0-40.0) % [place] % (Auto) 10.7 (0.0-15.0) % Eos % (Auto) 2.6 (0.0-7.0) % Baso % (Auto) 0.2 (0.0-1.5) % Neut # (Auto) 8.4 H (1.4-5.7) K/uL Lymph # (Auto) 0.9 (0.6-2.4) K/uL [place] # (Auto) 1.1 H (0.0-0.8) K/uL Eos # (Auto) 0.3 (0.0-0.7) K/uL Baso # (Auto) 0.0 (0.0-0.1) K/uL Nucleated RBC % 0.0 /100WBC Nucleated RBCs # 0 K/uL Lactate (0.20-2.00) mmol/L Sodium (136-148) mmol/L Potassium (3.5-5.1) mmol/L Chloride (98-107) mmol/L Carbon Dioxide (21.0-32.0) mmol/L BUN (7.0-18.0) mg/dL Creatinine (0.8-1.3) mg/dL Est Cr Clr Drug Dosing mL/min Estimated GFR (MDRD) ml/min Glucose (74-106) mg/dL POC Glucose (60-110) mg/dL Calcium (8.5-10.1) mg/dL Magnesium (1.8-2.4) mg/dL Urine Color Urine Appearance Urine pH (5.0-8.0) Ur Specific [place] (1.001-1.035) Urine Protein (NEGATIVE) mg/dL Urine Glucose (UA) (NEGATIVE) mg/dL Urine Ketones (NEGATIVE) mg/dL Urine Occult Blood (NEGATIVE) Urine Nitrite (NEGATIVE) Urine Bilirubin (NEGATIVE) Urine Urobilinogen (<2.0) EU/dL Ur Leukocyte Esterase (NEGATIVE) Urine RBC (0-2/HPF) Urine WBC (0-5/HPF) Ur Epithelial Cells (NONE-FEW) Ur Renal Epithelial Cell Amorphous Sediment (NEGATIVE) Hepatitis A IgM Ab (Negative) Hep Bs Antigen (Negative) Hep B Core IgM Ab (Negative) Hepatitis C Antibody (0.0-0.9) s/co ratio [place] Results Last 24 Hours: Microbiology 07/31/19 04:48 Aerobic Blood Culture - Preliminary Blood - Venous - Lab Draw NO GROWTH AFTER 3 DAYS Anaerobic Blood Culture - Preliminary NO GROWTH AFTER 3 DAYS 07/31/19 04:03 Aerobic Blood Culture - Preliminary Blood - Venous NO GROWTH AFTER 3 DAYS Anaerobic Blood Culture - Preliminary NO GROWTH AFTER 3 DAYS 07/31/19 11:20 Gram Stain - Final Sputum - Expectorated Sputum Culture - Final Yeast Normal Respiratory Shayy Med Orders - Current: Current Medications Acetaminophen (Tylenol) 650 mg PO Q6H PRN PRN Reason: fever/pain Last Admin: 08/02/19 17:50 Dose: 650 mg Albuterol/Ipratropium (Duoneb 3.0-0.5 Mg/3 Ml) 3 ml NEB Q4HRRT PRN PRN Reason: Dyspnea Last Admin: 08/02/19 19:43 Dose: 3 ml Docusate Sodium (Colace) 100 mg PO DAILY PRN PRN Reason: Constipation Heparin Sodium (Porcine) (Heparin Sodium) 5,000 units SUBCUT Q8H [facility] Last Admin: 08/03/19 02:39 Dose: 5,000 units Hydromorphone HCl (Dilaudid) 2 mg IVPUSH Q4H PRN PRN Reason: Pain Last Admin: 08/03/19 06:38 Dose: 2 mg Levofloxacin/Dextrose 750 mg/ (Premix) 150 mls @ 100 mls/hr IV Q24H [facility] Last Admin: 08/03/19 06:31 Dose: 100 mls/hr Cefepime HCl 2 gm/ Premix 50 mls @ 100 mls/hr IV Q8H [facility] Last Admin: 08/03/19 04:03 Dose: 100 mls/hr Pantoprazole Sodium 40 mg/ (Sodium Chloride) 10 mls @ 300 mls/hr IV Q24H [facility] Last Admin: 08/02/19 13:25 Dose: 300 mls/hr Vancomycin HCl 1.25 gm/ Sodium (Chloride) 250 mls @ 166.667 mls/hr IV Q8H [facility] Last Admin: 08/03/19 04:30 Dose: 166.667 mls/hr Insulin Aspart (Novolog) 0 unit SUBCUT TIDAC [facility]; Protocol Last Admin: 08/03/19 08:13 Dose: 3 unit Insulin Glargine (Lantus Solostar) 20 units SUBCUT BEDTIME [facility] Last Admin: 08/02/19 20:45 Dose: 20 unit Ketorolac Tromethamine (Toradol) 30 mg IVPUSH Q6H PRN PRN Reason: Pain Last Admin: 08/03/19 03:39 Dose: 30 mg Lisinopril (Prinivil) 20 mg PO DAILY [facility] Last Admin: 08/03/19 08:15 Dose: 20 mg Lorazepam (Ativan) 1 mg IVPUSH Q6H PRN PRN Reason: Anxiety Last Admin: 08/03/19 08:14 Dose: 1 mg Naloxone HCl (Narcan) 0.4 mg IVPUSH ASDIRECTED PRN PRN Reason: narcotic overdose Nicotine (Habitrol) 14 mg TRDERM DAILY [facility] Last Admin: 08/03/19 08:15 Dose: 14 mg Polyethylene Glycol (Miralax) 17 gm PO TID PRN PRN Reason: Constipation Sodium Chloride (Saline Flush) 10 ml FLUSH ASDIRECTED PRN PRN Reason: Keep Vein Open Last Admin: 07/31/19 04:16 Dose: 10 ml Sodium Chloride (Saline Flush) 2.5 ml FLUSH ASDIRECTED PRN PRN Reason: Keep Vein Open Last Admin: 07/31/19 04:16 Dose: 2.5 ml Sodium Chloride (Normal Saline) 10 ml IV ASDIRECTED PRN PRN Reason: IV Use [facility] Admin: 08/03/19 08:15 Dose: 0.4 mg Temazepam (Restoril) 15 mg PO BEDTIME PRN PRN Reason: Insomnia Last Admin: 08/01/19 20:45 Dose: 15 mg Discontinued Medications Acetaminophen (Tylenol) 975 mg PO DAILY ONE Stop: 07/31/19 04:09 Last Admin: 07/31/19 04:13 Dose: 975 mg Heparin Sodium (Porcine) (Heparin Sodium) 5,000 units SUBCUT Q8H [facility] Last Admin: 08/01/19 11:10 Dose: 5,000 units Hydromorphone HCl (Dilaudid) 0.5 mg IVPUSH ONETIME ONE Stop: 07/31/19 08:28 Last Admin: 07/31/19 11:45 Dose: Not Given Hydromorphone HCl (Dilaudid) 1 mg IVPUSH ONETIME ONE Stop: 07/31/19 09:10 Last Admin: 07/31/19 11:45 Dose: Not Given Hydromorphone HCl (Dilaudid) 2 mg IVPUSH ONETIME ONE Stop: 07/31/19 09:10 Last Admin: 07/31/19 09:28 Dose: 1 mg Sodium Chloride (Normal Saline) 1,000 mls @ 999 mls/hr IV .Bolus ONE Stop: 07/31/19 05:10 Last Infusion: 07/31/19 04:15 Dose: Infused Sodium Chloride (Normal Saline) 1,000 mls @ 999 mls/hr IV .Bolus ONE Stop: 07/31/19 05:11 Last Admin: 07/31/19 04:16 Dose: 999 mls/hr Cefepime HCl 1 gm/ Premix 50 mls @ 100 mls/hr IV ONETIME ONE Stop: 07/31/19 04:58 Last Admin: 07/31/19 05:04 Dose: 100 mls/hr Levofloxacin/Dextrose 750 mg/ (Premix) 150 mls @ 100 mls/hr IV ONETIME ONE Stop: 07/31/19 05:58 Last Admin: 07/31/19 04:50 Dose: 100 mls/hr Vancomycin HCl 1.5 gm/ Premix 300 mls @ 300 mls/hr IV ONETIME ONE Stop: 07/31/19 05:59 Last Admin: 07/31/19 05:04 Dose: 300 mls/hr Lactated Ringer's (Ringers, Lactated) 1,000 mls @ 125 mls/hr IV ASDIRECTED JAZMIN Last Admin: 07/31/19 19:43 Dose: 125 mls/hr Lactated Ringer's (Ringers, Lactated) 1,000 mls @ 999 mls/hr IV BOLUS ONE Stop: 07/31/19 07:42 Last Admin: 07/31/19 06:56 Dose: 999 mls/hr Vancomycin HCl 1.25 gm/ Sodium (Chloride) 250 mls @ 166.667 mls/hr IV Q12H JAZMIN Lactated Ringer's (Ringers, Lactated) 1,000 mls @ 999 mls/hr IV .BOLUS ONE Stop: 07/31/19 08:57 Last Admin: 07/31/19 08:33 Dose: 999 mls/hr Norepinephrine Bitartrate (Norepinephr-0.9% Nacl 4 Mg/250) 4 mg in 250 mls @ 7.5 mls/hr IV TITRATE JAZMIN; Protocol Last Titration: 07/31/19 14:14 Dose: 0 mcg/min, 0 mls/hr Sodium Chloride (Normal Saline) 500 mls @ 999 mls/hr IV ONETIME ONE Stop: 07/31/19 09:28 Vancomycin HCl 1.25 gm/ Sodium (Chloride) 250 mls @ 166.667 mls/hr IV Q12H [facility] Last Admin: 08/01/19 18:14 Dose: 166.667 mls/hr Magnesium Sulfate 2 gm/ Premix 50 mls @ 25 mls/hr IV ONETIME ONE Stop: 08/01/19 09:26 Last Admin: 08/01/19 07:38 Dose: 25 mls/hr Magnesium Sulfate 4 gm/ Premix 100 mls @ 33.333 mls/hr IV ONETIME ONE Stop: 08/02/19 14:55 Last Admin: 08/02/19 13:34 Dose: 33.333 mls/hr Magnesium Sulfate 2 gm/ Premix 50 mls @ 50 mls/hr IV ONETIME ONE Stop: 08/03/19 09:00 Ibuprofen (Motrin) 800 mg PO ONETIME ONE Stop: 07/31/19 04:08 Last Admin: 07/31/19 04:14 Dose: 800 mg Insulin Glargine (Lantus Solostar) 15 units SUBCUT BEDTIME JAZMIN Last Admin: 08/01/19 22:54 Dose: 15 units Iopamidol (Isovue Multipack-370 (76%)) 50 ml IVPUSH ONETIME STA Stop: 08/01/19 12:23 Last Admin: 08/01/19 12:23 Dose: 50 ml Ketorolac Tromethamine (Toradol) 15 mg IVPUSH Q4H PRN PRN Reason: Pain Stop: 08/05/19 06:50 Lidocaine (Xylocaine-Mpf 2%) Confirm Administered Dose 5 ml .ROUTE .STK-MED ONE Stop: 07/31/19 08:55 Last Admin: 07/31/19 09:37 Dose: 5 ml Lisinopril (Prinivil) 20 mg PO ONETIME ONE Stop: 08/01/19 23:01 Last Admin: 08/01/19 22:55 Dose: 20 mg Lorazepam (Ativan) 1 mg IVPUSH Q8H PRN PRN Reason: Anxiety Last Admin: 08/01/19 19:31 Dose: 1 mg Midodrine (Midodrine) 5 mg PO TIDAC JAZMIN Last Admin: 08/01/19 12:34 Dose: Not Given Morphine Sulfate (Morphine) 4 mg IVPUSH Q4H PRN PRN Reason: Pain Last Admin: 07/31/19 12:03 Dose: 4 mg Potassium Chloride (Klor-Con M20) 40 meq PO ONETIME ONE Stop: 08/02/19 11:55 Last Admin: 08/02/19 12:40 Dose: 40 meq Tamsulosin HCl (Flomax) 0.4 mg PO ONETIME ONE Stop: 07/31/19 16:27 Last Admin: 07/31/19 17:17 Dose: Not Given Vancomycin HCl (Vancomycin) 1,500 mg IV ONETIME ONE Stop: 07/31/19 04:34 Last Admin: 07/31/19 05:21 Dose: Not Given Vancomycin HCl (Pharmacy To Dose - Vancomycin) 1 dose .XX ASDIRECTED JAZMIN - Exam General: Alert, Oriented, Cooperative Lungs: Normal Respiratory Effort, Rhonchi, Wheezing Cardiovascular: Regular Rate, Regular Rhythm, No Murmurs GI/Abdominal Exam: Normal Bowel Sounds, Soft, Non-Tender Back Exam: Normal Inspection, Full Range of Motion Extremities: Normal Inspection, Normal Range of Motion, Non-Tender, No Pedal Edema Neurological: No New Focal Deficit Psy/Mental Status: Alert, Normal Affect, Normal Mood Sepsis Event Note - Evaluation Sepsis Screening Result: Sepsis Risk - Focused Exam Vital Signs: Vital Signs Temp Temp Pulse Resp BP BP BP 08/03/19 08:15 152/100 H 08/03/19 08:00 96.8 F L 105 H 20 152/100 H 08/03/19 04:00 99.1 F 17 163/94 H 08/03/19 00:00 99.3 F 19 119/70 08/02/19 22:00 99.2 F Pulse Ox 08/03/19 08:15 08/03/19 08:00 94 L 08/03/19 04:00 95 08/03/19 00:00 94 L 08/02/19 22:00 Date Exam was Performed: 08/03/19 Time Exam was Performed: 13:42 - Problem List & Annotations (1) Sepsis SNOMED Code(s): 20963242 Code(s): A41.9 - SEPSIS, UNSPECIFIED ORGANISM Status: Acute Current Visit : Yes Qualifiers: Sepsis acute organ dysfunction status: with acute organ dysfunction Severe sepsis acute organ dysfunction type: acute respiratory failure Acute respiratory failure type: with hypoxia Severe sepsis shock status: without septic shock (2) Pneumonia SNOMED Code(s): 258158293 Code(s): J18.9 - PNEUMONIA, UNSPECIFIED ORGANISM Status: Acute Current Visit: Yes Qualifiers: Pneumonia type: aspiration pneumonia Laterality: bilateral Lung location : unspecified part of lung (3) Chronic pain SNOMED Code(s): 36404022 Code(s): G89.29 - OTHER CHRONIC PAIN Status: Chronic Current Visit: Yes (4) Narcotic dependence SNOMED Code(s): 479993550 Code(s): F11.20 - OPIOID DEPENDENCE, UNCOMPLICATED Status: Chronic Current Visit: Yes (5) Diabetes mellitus SNOMED Code(s): 88446507 Code(s): E11.9 - TYPE 2 DIABETES MELLITUS WITHOUT COMPLICATIONS Status: Chronic Current Visit: No Qualifiers: Diabetes mellitus type: type 2 Diabetes mellitus intermediate accountant insulin use: with intermediate accountant use (6) Hypertension SNOMED Code(s): 31558016 Code(s): I10 - ESSENTIAL (PRIMARY) HYPERTENSION Status: Chronic Current Visit: No Qualifiers: Hypertension type: essential hypertension Qualified Code(s): I10 - Essential (primary) hypertension (7) Schizophrenia SNOMED Code(s): 25678370 Code(s): F20.9 - SCHIZOPHRENIA, UNSPECIFIED Status: Chronic Current Visit : No Qualifiers: Schizophrenia type: unspecified Qualified Code(s): F20.9 - Schizophrenia, unspecified (8) Diabetic foot ulcer SNOMED Code(s): 821052729 Code(s): E11.621 - TYPE 2 DIABETES MELLITUS WITH FOOT ULCER; L97.509 - NON- PRESSURE CHRONIC ULCER OTH PRT UNSP FOOT W UNSP SEVERITY Status: Acute Current Visit: Yes - Problem List Review Problem List Initiated/Reviewed/Updated: Yes - Plan Plan:: This 59 year old male admitted with sepsis and severe CAP 1. severe CAP possible aspiration pneumonia - Sepsis resolved. - Initial BC set negative. sputum cultures not helpful. - Continue broad spectrum antibiotics, Levaquin, Cefepime and Vancomycin - CT angio no PE, worsening infiltrates. - Oxygen to keep sats >92%, continue to wean as possible. Down to 2 L NC - Consult respiratory, IS every 1 hour and acapella. 2. DM with foot ulcer: - Consult wound care for possible debridement - CT of ankle to evaluate for osteo, due to continued fevers - Novolog SSI with BS check TIDAC. Increase Lantus to 28 units. Fasting BS this am 272. - Continue Gabapentin 3. Narcotic dependence - Change Dilaudid IV to PO every 4 hours PRN - Toradol PRN IV as well for pain 4. Schizoaffective disorder: - Stable. Was recently started on Lunesta. Would stop this due to behaviors. GI prophylaxis: Protonix, change to PO VTE prophylaxis: Heparin Code Status: Full Code Dispo: 2-3 days
[2019-08-03] MEDS: Acetaminophen 325 MG Tab PO PRN ×2 (13:05→20:47)
[2019-08-03] MEDS: Pantoprazole 40 MG in Sodium Chloride 0.9% 10 ML IV SCH (13:08)
[2019-08-03] MEDS ORDERED: Ketorolac 30 MG/ML SDV IVPUSH PRN (14:15)
[2019-08-03] MEDS: HYDROmorphone 2 MG Tab PO PRN ×3 (14:41→22:24)
--- NOTE | 2019-08-03 15:25 | CT ---
EXAM DATE: 07/31/19 PATIENT'S AGE: 59 CT left foot Technique: Multiple axial sections through the left foot were obtained. Reconstructed coronal and sagittal images were obtained. Findings: Sclerotic lesion is seen within the talus which is felt compatible with normal bone island. No focal erosive change is seen. No focal osteopenia is appreciated. Nothing appreciated at this time to indicate osteomyelitis. Mild areas of soft tissue swelling is seen. No focal fluid collections within the soft tissues to indicate discrete abscess. Impression: 1. Soft tissue swelling. 2. No findings of soft tissue abscess or osteomyelitis are seen. Diagnostic code #2 This report was dictated in [place] Standard Time Report Signed by Proxy. [facility]
--- NOTE | 2019-08-03 15:27 | CT ---
EXAM DATE: 07/31/19 PATIENT'S AGE: 59 CT left ankle Technique: Multiple axial sections were obtained to the left ankle. Reconstructed coronal and sagittal images were obtained. Findings: Several sclerotic areas are noted within the talus which are felt compatible with incidental bone islands. Ankle mortise is symmetric. Subtalar joint appears within normal limits. No calcaneal spurs are noted. No acute erosions are seen. No fracture is noted. Impression: 1. Findings believed to be incidental as noted above. 2. No acute bony abnormality is appreciated on CT left ankle exam. Diagnostic code #2 This report was dictated in [place] Standard Time Report Signed by Proxy. [facility] CENTERMohamud
--- NOTE | 2019-08-03 17:49 | PCM.PRNOTE ---
- Free Text/Narrative Note: Anes Note I was called to room 203 for IV access. I attempted to place a 22 tn in ineraspect right wrist. However, the patient flatly refused to have any more attempts at IV access. I stopped procedure, and notified nursing staff of patient request. Time with patient [id number] John Villarreal CRNA
[2019-08-03] MEDS: Amoxicillin/Clavulanate K 875-125 MG Tab PO SCH (20:47)
[2019-08-03] MEDS ORDERED: Insulin Glargine,Human Rec. Analog 100 Units/ML 3 ML Pen SUBCUT SCH (21:00)
[2019-08-04] MEDS: HYDROmorphone 2 MG Tab PO PRN ×6 (02:24→22:24)
[2019-08-04] MEDS: Heparin Sodium 5,000 Units/ML Vial SUBCUT SCH ×3 (04:01→18:04)
[2019-08-04] MEDS: Albuterol/Ipratropium 3.0-0.5 MG/3 ML Neb Soln NEB PRN ×2 (06:19→10:23)
[2019-08-04] MEDS: Insulin Aspart 100 Units/ML 3 ML Pen SUBCUT SCH ×3 (06:44→18:04)
[2019-08-04 06:45] LABS: BLOOD UREA NITROGEN,BUN 9 mg/dL (7.0-18.0); CARBON DIOXIDE,CO2 25.6 mmol/L (21.0-32.0); CHLORIDE,CL 101 mmol/L (98-107); GLUCOSE RANDOM 238 mg/dL (74-106); POTASSIUM,K 3.9 mmol/L (3.5-5.1); SODIUM,NA 135 mmol/L (136-148)
[2019-08-04] MEDS ORDERED: Magnesium Sulfate/Water 4 GM in Premix Bag 1 BAG IV ONE (07:49)
[2019-08-04] MEDS: Levofloxacin/Dextrose 5%-Water 750 MG in Premix Bag 1 BAG IV SCH (08:01)
[2019-08-04] MEDS ORDERED: Magnesium Oxide 400 MG Tab PO ONE (08:04)
--- NOTE | 2019-08-04 08:47 | PCM.PN ---
- General Info Date of Service: 08/04/19 Admission Dx/Problem (Free Text): Admission Diagnosis/Problem Admission Diagnosis/Problem Pneumonia Subjective Update: Reports coughing still which is productive. No chest pain. remains on oxygen. Reports pain to foot, tolerable with Dilaudid. Asking to be left alone so he can sleep Functional Status: Reports: Pain Controlled, Tolerating Diet, Ambulating, Urinating - Review of Systems General: Reports: Fatigue, Malaise HEENT: Reports: No Symptoms Pulmonary: Reports: Shortness of Breath, Cough, Sputum Cardiovascular: Reports: No Symptoms. Denies: Chest Pain Gastrointestinal: Reports: No Symptoms. Denies: Abdominal Pain, Nausea, Vomiting Musculoskeletal: Reports: Foot Pain Skin: Reports: No Symptoms Neurological: Reports: No Symptoms Psychiatric: Reports: No Symptoms - Patient Data Vitals - Most Recent: Last Vital Signs Temp 100.0 F 08/04/19 07:29 Pulse 109 H 08/04/19 04:39 Resp 20 08/04/19 07:29 BP 148/77 H 08/04/19 07:29 Pulse Ox 92 L 08/04/19 07:29 Weight - Most Recent: 93.894 kg I&O - Last 24 Hours: Intake & Output 08/03/19 08/04/19 08/04/19 22:59 06:59 14:59 Intake Total 1380 800 Output Total 700 400 Balance 680 400 Lab Results Last 24 Hours: Laboratory Results - last 24 hr 08/03/19 08/03/19 08/03/19 Range/Units 06:46 11:57 13:03 WBC (4.0-11.0) K/uL RBC (4.50-5.90) M/uL Hgb (13.0-17.0) g/dL Hct (38.0-50.0) % MCV (80.0-98.0) fL MCH (27.0-32.0) pg MCHC (31.0-37.0) g/dL RDW Std Deviation (28.0-62.0) fl RDW Coeff of Thor (11.0-15.0) % Plt Count (150-400) K/uL MPV (7.40-12.00) fL Add Manual Diff Neutrophils % (Manual) (48.0-80.0) % Band Neutrophils % % Lymphocytes % (Manual) (16.0-40.0) % Monocytes % (Manual) (0.0-15.0) % Eosinophils % (Manual) (0.0-7.0) % Nucleated RBC % /100WBC Absolute Seg Neuts (1.4-5.7) Band Neutrophils # Lymphocytes # (Manual) (0.6-2.4) Monocytes # (Manual) (0.0-0.8) Eosinophils # (Manual) (0.0-0.7) Nucleated RBCs # K/uL Sodium (136-148) mmol/L Potassium (3.5-5.1) mmol/L Chloride (98-107) mmol/L Carbon Dioxide (21.0-32.0) mmol/L BUN (7.0-18.0) mg/dL Creatinine (0.8-1.3) mg/dL Est Cr Clr Drug Dosing mL/min Estimated GFR (MDRD) ml/min Glucose (74-106) mg/dL POC Glucose 269 H 251 H (60-110) mg/dL Calcium (8.5-10.1) mg/dL Magnesium (1.8-2.4) mg/dL Vancomycin Trough 13.0 H (5.0-10.0) ug/mL 08/03/19 08/03/19 08/03/19 Range/Units 17:21 20:50 23:28 WBC (4.0-11.0) K/uL RBC (4.50-5.90) M/uL Hgb (13.0-17.0) g/dL Hct (38.0-50.0) % MCV (80.0-98.0) fL MCH (27.0-32.0) pg MCHC (31.0-37.0) g/dL RDW Std Deviation (28.0-62.0) fl RDW Coeff of Thor (11.0-15.0) % Plt Count (150-400) K/uL MPV (7.40-12.00) fL Add Manual Diff Neutrophils % (Manual) (48.0-80.0) % Band Neutrophils % % Lymphocytes % (Manual) (16.0-40.0) % Monocytes % (Manual) (0.0-15.0) % Eosinophils % (Manual) (0.0-7.0) % Nucleated RBC % /100WBC Absolute Seg Neuts (1.4-5.7) Band Neutrophils # Lymphocytes # (Manual) (0.6-2.4) Monocytes # (Manual) (0.0-0.8) Eosinophils # (Manual) (0.0-0.7) Nucleated RBCs # K/uL Sodium (136-148) mmol/L Potassium (3.5-5.1) mmol/L Chloride (98-107) mmol/L Carbon Dioxide (21.0-32.0) mmol/L BUN (7.0-18.0) mg/dL Creatinine (0.8-1.3) mg/dL Est Cr Clr Drug Dosing mL/min Estimated GFR (MDRD) ml/min Glucose (74-106) mg/dL POC Glucose 201 H 272 H 254 H (60-110) mg/dL Calcium (8.5-10.1) mg/dL Magnesium (1.8-2.4) mg/dL Vancomycin Trough (5.0-10.0) ug/mL 08/04/19 08/04/19 08/04/19 Range/Units 04:58 04:58 06:24 WBC 10.41 (4.0-11.0) K/uL RBC 3.37 L (4.50-5.90) M/uL Hgb 10.7 L (13.0-17.0) g/dL Hct 31.7 L (38.0-50.0) % MCV 94.1 (80.0-98.0) fL MCH 31.8 (27.0-32.0) pg MCHC 33.8 (31.0-37.0) g/dL RDW Std Deviation 40.4 (28.0-62.0) fl RDW Coeff of Thor 12 (11.0-15.0) % Plt Count 236 (150-400) K/uL MPV 9.80 (7.40-12.00) fL Add Manual Diff YES Neutrophils % (Manual) 61 (48.0-80.0) % Band Neutrophils % 15 % Lymphocytes % (Manual) 8 L (16.0-40.0) % Monocytes % (Manual) 14 (0.0-15.0) % Eosinophils % (Manual) 2 (0.0-7.0) % Nucleated RBC % 0.0 /100WBC Absolute Seg Neuts 6.4 H (1.4-5.7) Band Neutrophils # 1.6 Lymphocytes # (Manual) 0.8 (0.6-2.4) Monocytes # (Manual) 1.5 H (0.0-0.8) Eosinophils # (Manual) 0.2 (0.0-0.7) Nucleated RBCs # 0 K/uL Sodium 135 L (136-148) mmol/L Potassium 3.9 (3.5-5.1) mmol/L Chloride 101 (98-107) mmol/L Carbon Dioxide 25.6 (21.0-32.0) mmol/L BUN 9 (7.0-18.0) mg/dL Creatinine 0.7 L (0.8-1.3) mg/dL Est Cr Clr Drug Dosing 109.93 mL/min Estimated GFR (MDRD) > 60.0 ml/min Glucose 238 H (74-106) mg/dL POC Glucose 224 H (60-110) mg/dL Calcium 8.9 (8.5-10.1) mg/dL Magnesium 1.5 L (1.8-2.4) mg/dL Vancomycin Trough (5.0-10.0) ug/mL [place] Results Last 24 Hours: Microbiology 07/31/19 04:48 Aerobic Blood Culture - Preliminary Blood - Venous - Lab Draw NO GROWTH AFTER 4 DAYS Anaerobic Blood Culture - Preliminary NO GROWTH AFTER 4 DAYS 07/31/19 04:03 Aerobic Blood Culture - Preliminary Blood - Venous NO GROWTH AFTER 4 DAYS Anaerobic Blood Culture - Preliminary NO GROWTH AFTER 4 DAYS 08/02/19 11:05 Aerobic Blood Culture - Preliminary Blood - Venous - Lab Draw NO GROWTH AFTER 1 DAY Anaerobic Blood Culture - Preliminary NO GROWTH AFTER 1 DAY 08/02/19 10:50 Aerobic Blood Culture - Preliminary Blood - Venous NO GROWTH AFTER 1 DAY Anaerobic Blood Culture - Preliminary NO GROWTH AFTER 1 DAY Med Orders - Current: Current Medications Acetaminophen (Tylenol) 650 mg PO Q6H PRN PRN Reason: fever/pain Last Admin: 08/03/19 20:47 Dose: 650 mg Albuterol/Ipratropium (Duoneb 3.0-0.5 Mg/3 Ml) 3 ml NEB Q4HRRT PRN PRN Reason: Dyspnea Last Admin: 08/04/19 06:19 Dose: 3 ml Amoxicillin/Clavulanate Potassium (Augmentin 875 Mg/125 Mg) 1 tab PO Q12HR COUNT INCLUDES THE [facility] Last Admin: 08/03/19 20:47 Dose: 1 tab Azithromycin (Zithromax) 500 mg PO Q24H JAZMIN Docusate Sodium (Colace) 100 mg PO DAILY PRN PRN Reason: Constipation Heparin Sodium (Porcine) (Heparin Sodium) 5,000 units SUBCUT Q8H COUNT INCLUDES THE [facility] Last Admin: 08/04/19 04:01 Dose: Not Given Hydromorphone HCl (Dilaudid) 4 mg PO Q4H PRN PRN Reason: Pain Last Admin: 08/04/19 06:10 Dose: 4 mg Pantoprazole Sodium 40 mg/ (Sodium Chloride) 10 mls @ 300 mls/hr IV Q24H COUNT INCLUDES THE [facility] Last Admin: 08/03/19 13:08 Dose: 300 mls/hr Insulin Aspart (Novolog) 0 unit SUBCUT TIDAC COUNT INCLUDES THE [facility]; Protocol Last Admin: 08/04/19 06:44 Dose: 4 unit Insulin Glargine (Lantus Solostar) 35 units SUBCUT BEDTIME COUNT INCLUDES THE [facility] Ketorolac Tromethamine (Toradol) 30 mg IVPUSH Q6H PRN PRN Reason: Pain Lisinopril (Prinivil) 20 mg PO DAILY COUNT INCLUDES THE [facility] Last Admin: 08/03/19 08:15 Dose: 20 mg Lorazepam (Ativan) 1 mg IVPUSH Q6H PRN PRN Reason: Anxiety Last Admin: 08/03/19 08:14 Dose: 1 mg Naloxone HCl (Narcan) 0.4 mg IVPUSH ASDIRECTED PRN PRN Reason: narcotic overdose Nicotine (Habitrol) 14 mg TRDERM DAILY COUNT INCLUDES THE [facility] Last Admin: 08/03/19 08:15 Dose: 14 mg Polyethylene Glycol (Miralax) 17 gm PO TID PRN PRN Reason: Constipation Sodium Chloride (Saline Flush) 10 ml FLUSH ASDIRECTED PRN PRN Reason: Keep Vein Open Last Admin: 07/31/19 04:16 Dose: 10 ml Sodium Chloride (Saline Flush) 2.5 ml FLUSH ASDIRECTED PRN PRN Reason: Keep Vein Open Last Admin: 07/31/19 04:16 Dose: 2.5 ml Sodium Chloride (Normal Saline) 10 ml IV ASDIRECTED PRN PRN Reason: IV Use Tamsulosin HCl (Flomax) 0.4 mg PO BIDPC COUNT INCLUDES THE [facility] Last Admin: 08/03/19 17:57 Dose: 0.4 mg Temazepam (Restoril) 15 mg PO BEDTIME PRN PRN Reason: Insomnia Last Admin: 08/01/19 20:45 Dose: 15 mg Discontinued Medications Acetaminophen (Tylenol) 975 mg PO DAILY ONE Stop: 07/31/19 04:09 Last Admin: 07/31/19 04:13 Dose: 975 mg Heparin Sodium (Porcine) (Heparin Sodium) 5,000 units SUBCUT Q8H COUNT INCLUDES THE [facility] Last Admin: 08/01/19 11:10 Dose: 5,000 units Hydromorphone HCl (Dilaudid) 0.5 mg IVPUSH ONETIME ONE Stop: 07/31/19 08:28 Last Admin: 07/31/19 11:45 Dose: Not Given Hydromorphone HCl (Dilaudid) 1 mg IVPUSH ONETIME ONE Stop: 07/31/19 09:10 Last Admin: 07/31/19 11:45 Dose: Not Given Hydromorphone HCl (Dilaudid) 2 mg IVPUSH ONETIME ONE Stop: 07/31/19 09:10 Last Admin: 07/31/19 09:28 Dose: 1 mg Hydromorphone HCl (Dilaudid) 2 mg IVPUSH Q4H PRN PRN Reason: Pain Last Admin: 08/03/19 10:30 Dose: 2 mg Sodium Chloride (Normal Saline) 1,000 mls @ 999 mls/hr IV .Bolus ONE Stop: 07/31/19 05:10 Last Infusion: 07/31/19 04:15 Dose: Infused Sodium Chloride (Normal Saline) 1,000 mls @ 999 mls/hr IV .Bolus ONE Stop: 07/31/19 05:11 Last Admin: 07/31/19 04:16 Dose: 999 mls/hr Cefepime HCl 1 gm/ Premix 50 mls @ 100 mls/hr IV ONETIME ONE Stop: 07/31/19 04:58 Last Admin: 07/31/19 05:04 Dose: 100 mls/hr Levofloxacin/Dextrose 750 mg/ (Premix) 150 mls @ 100 mls/hr IV ONETIME ONE Stop: 07/31/19 05:58 Last Admin: 07/31/19 04:50 Dose: 100 mls/hr Vancomycin HCl 1.5 gm/ Premix 300 mls @ 300 mls/hr IV ONETIME ONE Stop: 07/31/19 05:59 Last Admin: 07/31/19 05:04 Dose: 300 mls/hr Lactated Ringer's (Ringers, Lactated) 1,000 mls @ 125 mls/hr IV ASDIRECTED COUNT INCLUDES THE [facility] Last Admin: 07/31/19 19:43 Dose: 125 mls/hr Lactated Ringer's (Ringers, Lactated) 1,000 mls @ 999 mls/hr IV BOLUS ONE Stop: 07/31/19 07:42 Last Admin: 07/31/19 06:56 Dose: 999 mls/hr Vancomycin HCl 1.25 gm/ Sodium (Chloride) 250 mls @ 166.667 mls/hr IV Q12H JAZMIN Levofloxacin/Dextrose 750 mg/ (Premix) 150 mls @ 100 mls/hr IV Q24H COUNT INCLUDES THE [facility] Last Admin: 08/04/19 08:01 Dose: Not Given Cefepime HCl 2 gm/ Premix 50 mls @ 100 mls/hr IV Q8H COUNT INCLUDES THE [facility] Last Admin: 08/03/19 13:08 Dose: 100 mls/hr Lactated Ringer's (Ringers, Lactated) 1,000 mls @ 999 mls/hr IV .BOLUS ONE Stop: 07/31/19 08:57 Last Admin: 07/31/19 08:33 Dose: 999 mls/hr Norepinephrine Bitartrate (Norepinephr-0.9% Nacl 4 Mg/250) 4 mg in 250 mls @ 7.5 mls/hr IV TITRATE COUNT INCLUDES THE [facility]; Protocol Last Titration: 07/31/19 14:14 Dose: 0 mcg/min, 0 mls/hr Sodium Chloride (Normal Saline) 500 mls @ 999 mls/hr IV ONETIME ONE Stop: 07/31/19 09:28 Vancomycin HCl 1.25 gm/ Sodium (Chloride) 250 mls @ 166.667 mls/hr IV Q12H COUNT INCLUDES THE [facility] Last Admin: 08/01/19 18:14 Dose: 166.667 mls/hr Magnesium Sulfate 2 gm/ Premix 50 mls @ 25 mls/hr IV ONETIME ONE Stop: 08/01/19 09:26 Last Admin: 08/01/19 07:38 Dose: 25 mls/hr Vancomycin HCl 1.25 gm/ Sodium (Chloride) 250 mls @ 166.667 mls/hr IV Q8H JAZMIN Last Admin: 08/03/19 14:19 Dose: 166.667 mls/hr Magnesium Sulfate 4 gm/ Premix 100 mls @ 33.333 mls/hr IV ONETIME ONE Stop: 08/02/19 14:55 Last Admin: 08/02/19 13:34 Dose: 33.333 mls/hr Magnesium Sulfate 2 gm/ Premix 50 mls @ 50 mls/hr IV ONETIME ONE Stop: 08/03/19 09:00 Last Admin: 08/03/19 13:10 Dose: 50 mls/hr Magnesium Sulfate 4 gm/ Premix 100 mls @ 33.333 mls/hr IV ONETIME ONE Stop: 08/04/19 10:48 Last Admin: 08/04/19 08:18 Dose: Not Given Ibuprofen (Motrin) 800 mg PO ONETIME ONE Stop: 07/31/19 04:08 Last Admin: 07/31/19 04:14 Dose: 800 mg Insulin Aspart (Novolog) 0 unit SUBCUT TIDAC COUNT INCLUDES THE [facility]; Protocol Last Admin: 08/03/19 13:36 Dose: 3 unit Insulin Glargine (Lantus Solostar) 15 units SUBCUT BEDTIME JAZMIN Last Admin: 08/01/19 22:54 Dose: 15 units Insulin Glargine (Lantus Solostar) 20 units SUBCUT BEDTIME JAZMIN Last Admin: 08/02/19 20:45 Dose: 20 unit Insulin Glargine (Lantus Solostar) 28 units SUBCUT BEDTIME JAZMIN Last Admin: 08/03/19 20:51 Dose: 28 units Iopamidol (Isovue Multipack-370 (76%)) 50 ml IVPUSH ONETIME STA Stop: 08/01/19 12:23 Last Admin: 08/01/19 12:23 Dose: 50 ml Ketorolac Tromethamine (Toradol) 15 mg IVPUSH Q4H PRN PRN Reason: Pain Stop: 08/05/19 06:50 Ketorolac Tromethamine (Toradol) 30 mg IVPUSH Q6H PRN PRN Reason: Pain Last Admin: 08/03/19 03:39 Dose: 30 mg Lidocaine (Xylocaine-Mpf 2%) Confirm Administered Dose 5 ml .ROUTE .STK-MED ONE Stop: 07/31/19 08:55 Last Admin: 07/31/19 09:37 Dose: 5 ml Lisinopril (Prinivil) 20 mg PO ONETIME ONE Stop: 08/01/19 23:01 Last Admin: 08/01/19 22:55 Dose: 20 mg Lorazepam (Ativan) 1 mg IVPUSH Q8H PRN PRN Reason: Anxiety Last Admin: 08/01/19 19:31 Dose: 1 mg Magnesium Oxide (Magnesium Oxide) 400 mg PO ONETIME ONE Stop: 08/04/19 08:05 Midodrine (Midodrine) 5 mg PO TIDAC JAZMIN Last Admin: 08/01/19 12:34 Dose: Not Given Morphine Sulfate (Morphine) 4 mg IVPUSH Q4H PRN PRN Reason: Pain Last Admin: 07/31/19 12:03 Dose: 4 mg Potassium Chloride (Klor-Con M20) 40 meq PO ONETIME ONE Stop: 08/02/19 11:55 Last Admin: 08/02/19 12:40 Dose: 40 meq Tamsulosin HCl (Flomax) 0.4 mg PO ONETIME ONE Stop: 07/31/19 16:27 Last Admin: 07/31/19 17:17 Dose: Not Given Vancomycin HCl (Vancomycin) 1,500 mg IV ONETIME ONE Stop: 07/31/19 04:34 Last Admin: 07/31/19 05:21 Dose: Not Given Vancomycin HCl (Pharmacy To Dose - Vancomycin) 1 dose .XX ASDIRECTED JAZMIN - Exam General: Alert, Oriented, Cooperative, No Acute Distress Lungs: Normal Respiratory Effort, Rhonchi, Wheezing Cardiovascular: Regular Rate, Regular Rhythm GI/Abdominal Exam: Normal Bowel Sounds, Soft, Non-Tender Back Exam: Normal Inspection, Full Range of Motion Extremities: Normal Inspection, Normal Range of Motion, Non-Tender, No Pedal Edema Neurological: No New Focal Deficit Psy/Mental Status: Alert, Normal Affect, Normal Mood Sepsis Event Note - Evaluation Sepsis Screening Result: No Definite Risk - Focused Exam Vital Signs: Vital Signs Temp Pulse Resp BP BP Pulse Ox 08/04/19 07:29 100.0 F 20 148/77 H 92 L 02/25/20 04:39 97.5 F 109 H 18 148/84 H 91 L 08/03/19 21:00 98.2 F 108 H 17 148/86 H 92 L Date Exam was Performed: 08/04/19 Time Exam was Performed: 12:07 - Problem List & Annotations (1) Pneumonia SNOMED Code(s): 287347373 Code(s): J18.9 - PNEUMONIA, UNSPECIFIED ORGANISM Status: Acute Current Visit: Yes Qualifiers: Pneumonia type: aspiration pneumonia Laterality: bilateral Lung location : unspecified part of lung (2) Chronic pain SNOMED Code(s): 33898919 Code(s): G89.29 - OTHER CHRONIC PAIN Status: Chronic Current Visit: Yes (3) Narcotic dependence SNOMED Code(s): 368051707 Code(s): F11.20 - OPIOID DEPENDENCE, UNCOMPLICATED Status: Chronic Current Visit: Yes (4) Diabetes mellitus SNOMED Code(s): 77525535 Code(s): E11.9 - TYPE 2 DIABETES MELLITUS WITHOUT COMPLICATIONS Status: Chronic Current Visit: No Qualifiers: Diabetes mellitus type: type 2 Diabetes mellitus terminal make up operator insulin use: with terminal make up operator use (5) Hypertension SNOMED Code(s): 03181814 Code(s): I10 - ESSENTIAL (PRIMARY) HYPERTENSION Status: Chronic Current Visit: No Qualifiers: Hypertension type: essential hypertension Qualified Code(s): I10 - Essential (primary) hypertension (6) Schizophrenia SNOMED Code(s): 54842967 Code(s): F20.9 - SCHIZOPHRENIA, UNSPECIFIED Status: Chronic Current Visit : No Qualifiers: Schizophrenia type: unspecified Qualified Code(s): F20.9 - Schizophrenia, unspecified (7) Diabetic foot ulcer SNOMED Code(s): 076822411 Code(s): E11.621 - TYPE 2 DIABETES MELLITUS WITH FOOT ULCER; L97.509 - NON- PRESSURE CHRONIC ULCER OTH PRT UNSP FOOT W UNSP SEVERITY Status: Acute Current Visit: Yes - Problem List Review Problem List Initiated/Reviewed/Updated: Yes - My Orders Last 24 Hours: My Active Orders 08/03/19 09:26 RT Acapella [RESPCARE] Routine 08/03/19 10:25 Consult to Wound Care Services [CONS] Routine 08/03/19 10:26 HYDROmorphone [Dilaudid] 4 mg PO Q4H PRN 08/03/19 13:43 Central Venous Line Discontinue [OM.PC] Routine 08/03/19 14:15 Ketorolac [Toradol] 30 mg IVPUSH Q6H PRN 08/03/19 16:46 Consult to Physician [CONS] Routine 08/03/19 16:52 Notify Provider Consults [RC] ASDIRECTED 08/03/19 17:30 Insulin Aspart [NovoLOG] See Protocol SUBCUT TIDAC 08/04/19 08:00 Azithromycin [Zithromax] 500 mg PO Q24H 08/04/19 21:00 Insulin Glarg,Human.Rec.Analog [LantUS Solostar] 35 units SUBCUT BEDTIME 08/05/19 05:11 BASIC METABOLIC PANEL,BMP [CHEM] AM CBC WITH AUTO DIFF [HEME] AM MAGNESIUM [CHEM] AM 08/06/19 05:11 BASIC METABOLIC PANEL,BMP [CHEM] AM CBC WITH AUTO DIFF [HEME] AM MAGNESIUM [CHEM] AM - Plan Plan:: This 59 year old male admitted with sepsis and severe CAP 1. severe CAP possible aspiration pneumonia - BC negative x 2 sets - IV antibiotics discontinued due to inability to gain IV access. - Augmentin and Azithromycin started orally. MOnitor today and ensure he continues to improve - Oxygen to keep sats >92%, continue to wean as possible. Down to 2 L NC - Consult respiratory, IS every 1 hour and acapella. 2. DM with foot ulcer: - Consult wound care patient refuses further wound treatment - CT of ankle/foot, negative for osteomyelitis - Novolog SSI with BS check TIDAC. Increase Lantus to 40 units. - Continue Gabapentin 3. Narcotic dependence - Dilaudid PO every 4 hours PRN - Toradol PRN IV as well for pain 4. Schizoaffective disorder/ psychiatric disorder: - Stable. Was recently started on Lunesta for sleep. Would stop this due to behaviors. GI prophylaxis: Protonix VTE prophylaxis: Heparin Code Status: Full Code Dispo: 1-2 days
[2019-08-04] MEDS: Nicotine 14 MG/24 Hr Patch TRDERM SCH (08:49)
[2019-08-04] MEDS: Amoxicillin/Clavulanate K 875-125 MG Tab PO SCH ×2 (08:51→21:05)
[2019-08-04] MEDS: Azithromycin 250 MG Tab PO SCH (08:51)
[2019-08-04] MEDS: Tamsulosin 0.4 MG Cap.ER PO SCH ×2 (08:52→18:03)
[2019-08-04] MEDS: Lisinopril 10 MG Tab PO SCH (08:53)
[2019-08-04] MEDS: Acetaminophen 325 MG Tab PO PRN (13:26)
[2019-08-04] MEDS: Cefepime 2 GM in Premix Bag 1 BAG IV SCH (14:39)
[2019-08-04] MEDS: Pantoprazole 40 MG in Sodium Chloride 0.9% 10 ML IV SCH (14:40)
[2019-08-04] MEDS ORDERED: Insulin Glargine,Human Rec. Analog 100 Units/ML 3 ML Pen SUBCUT SCH (21:00)
[2019-08-04] MEDS: Insulin Glargine,Human Rec. Analog 100 Units/ML 3 ML Pen SUBCUT SCH (21:06)
[2019-08-05] MEDS: Albuterol/Ipratropium 3.0-0.5 MG/3 ML Neb Soln NEB PRN ×2 (01:54→10:32)
[2019-08-05] MEDS: Heparin Sodium 5,000 Units/ML Vial SUBCUT SCH ×3 (02:00→19:00)
[2019-08-05] MEDS: HYDROmorphone 2 MG Tab PO PRN ×6 (02:12→23:14)
[2019-08-05 05:59] LABS: BLOOD UREA NITROGEN,BUN 12 mg/dL (7.0-18.0); CARBON DIOXIDE,CO2 26.2 mmol/L (21.0-32.0); CHLORIDE,CL 100 mmol/L (98-107); GLUCOSE RANDOM 208 mg/dL (74-106); POTASSIUM,K 3.9 mmol/L (3.5-5.1); SODIUM,NA 137 mmol/L (136-148)
[2019-08-05] MEDS: Pantoprazole 40 MG Tab.CR PO SCH (06:30)
[2019-08-05] MEDS: Insulin Aspart 100 Units/ML 3 ML Pen SUBCUT SCH ×3 (08:06→18:02)
[2019-08-05] MEDS: Azithromycin 250 MG Tab PO SCH (08:09)
[2019-08-05] MEDS: Tamsulosin 0.4 MG Cap.ER PO SCH ×2 (08:10→18:30)
[2019-08-05] MEDS: Lisinopril 10 MG Tab PO SCH (08:11)
[2019-08-05] MEDS: Amoxicillin/Clavulanate K 875-125 MG Tab PO SCH (08:12)
[2019-08-05] MEDS: Nicotine 14 MG/24 Hr Patch TRDERM SCH (08:13)
[2019-08-05] MEDS: Linezolid 600 MG Tab PO SCH ×2 (09:01→21:16)
[2019-08-05] MEDS: Levofloxacin 250 MG Tab PO SCH (09:03)
--- NOTE | 2019-08-05 09:12 | PCM.PN ---
- General Info Date of Service: 08/05/19 Admission Dx/Problem (Free Text): Admission Diagnosis/Problem Admission Diagnosis/Problem Pneumonia Subjective Update: Feeling worse today, all over body aches and malaise. No chest pain. reports mild SOB. Functional Status: Reports: Pain Controlled, Tolerating Diet, Ambulating, Urinating - Review of Systems General: Reports: Weakness, Fatigue, Malaise Pulmonary: Reports: Shortness of Breath, Cough, Sputum. Denies: Wheezing Cardiovascular: Denies: Chest Pain, Palpitations Gastrointestinal: Reports: Abdominal Pain Musculoskeletal: Reports: No Symptoms. Denies: Neck Pain Skin: Reports: No Symptoms Neurological: Reports: No Symptoms Psychiatric: Reports: Depression - Patient Data Vitals - Most Recent: Last Vital Signs Temp 98.1 F 08/05/19 08:00 Pulse 96 08/05/19 08:00 Resp 16 08/05/19 08:00 BP 150/76 H 08/05/19 08:11 Pulse Ox 97 08/05/19 08:00 Weight - Most Recent: 93.894 kg I&O - Last 24 Hours: Intake & Output 08/04/19 08/05/19 08/05/19 22:59 06:59 14:59 Intake Total 980 700 Output Total 720 Balance 260 700 Lab Results Last 24 Hours: Laboratory Results - last 24 hr 08/04/19 08/04/19 08/04/19 Range/Units 11:14 17:37 21:04 WBC (4.0-11.0) K/uL RBC (4.50-5.90) M/uL Hgb (13.0-17.0) g/dL Hct (38.0-50.0) % MCV (80.0-98.0) fL MCH (27.0-32.0) pg MCHC (31.0-37.0) g/dL RDW Std Deviation (28.0-62.0) fl RDW Coeff of Thor (11.0-15.0) % Plt Count (150-400) K/uL MPV (7.40-12.00) fL Add Manual Diff Neutrophils % (Manual) (48.0-80.0) % Band Neutrophils % % Lymphocytes % (Manual) (16.0-40.0) % Monocytes % (Manual) (0.0-15.0) % Eosinophils % (Manual) (0.0-7.0) % Nucleated RBC % /100WBC Absolute Seg Neuts (1.4-5.7) Band Neutrophils # Lymphocytes # (Manual) (0.6-2.4) Monocytes # (Manual) (0.0-0.8) Eosinophils # (Manual) (0.0-0.7) Nucleated RBCs # K/uL Sodium (136-148) mmol/L Potassium (3.5-5.1) mmol/L Chloride (98-107) mmol/L Carbon Dioxide (21.0-32.0) mmol/L BUN (7.0-18.0) mg/dL Creatinine (0.8-1.3) mg/dL Est Cr Clr Drug Dosing mL/min Estimated GFR (MDRD) ml/min Glucose (74-106) mg/dL POC Glucose 250 H 257 H 245 H (60-110) mg/dL Calcium (8.5-10.1) mg/dL Magnesium (1.8-2.4) mg/dL 08/05/19 08/05/19 08/05/19 Range/Units 05:20 05:20 06:35 WBC 11.46 H (4.0-11.0) K/uL RBC 3.44 L (4.50-5.90) M/uL Hgb 11.0 L (13.0-17.0) g/dL Hct 32.5 L (38.0-50.0) % MCV 94.5 (80.0-98.0) fL MCH 32.0 (27.0-32.0) pg MCHC 33.8 (31.0-37.0) g/dL RDW Std Deviation 41.2 (28.0-62.0) fl RDW Coeff of Thor 12 (11.0-15.0) % Plt Count 261 (150-400) K/uL MPV 9.70 (7.40-12.00) fL Add Manual Diff YES Neutrophils % (Manual) 60 (48.0-80.0) % Band Neutrophils % 8 % Lymphocytes % (Manual) 27 (16.0-40.0) % Monocytes % (Manual) 4 (0.0-15.0) % Eosinophils % (Manual) 1 (0.0-7.0) % Nucleated RBC % 0.0 /100WBC Absolute Seg Neuts 6.9 H (1.4-5.7) Band Neutrophils # 0.9 Lymphocytes # (Manual) 3.1 H (0.6-2.4) Monocytes # (Manual) 0.5 (0.0-0.8) Eosinophils # (Manual) 0.1 (0.0-0.7) Nucleated RBCs # 0 K/uL Sodium 137 (136-148) mmol/L Potassium 3.9 (3.5-5.1) mmol/L Chloride 100 (98-107) mmol/L Carbon Dioxide 26.2 (21.0-32.0) mmol/L BUN 12 (7.0-18.0) mg/dL Creatinine 0.7 L (0.8-1.3) mg/dL Est Cr Clr Drug Dosing 109.93 mL/min Estimated GFR (MDRD) > 60.0 ml/min Glucose 208 H (74-106) mg/dL POC Glucose 183 H (60-110) mg/dL Calcium 8.8 (8.5-10.1) mg/dL Magnesium 1.5 L (1.8-2.4) mg/dL [place] Results Last 24 Hours: Microbiology 07/31/19 04:48 Aerobic Blood Culture - Final Blood - Venous - Lab Draw NO GROWTH AFTER 5 DAYS Anaerobic Blood Culture - Final NO GROWTH AFTER 5 DAYS 07/31/19 04:03 Aerobic Blood Culture - Final Blood - Venous NO GROWTH AFTER 5 DAYS Anaerobic Blood Culture - Final NO GROWTH AFTER 5 DAYS 08/02/19 11:05 Aerobic Blood Culture - Preliminary Blood - Venous - Lab Draw NO GROWTH AFTER 2 DAYS Anaerobic Blood Culture - Preliminary NO GROWTH AFTER 2 DAYS 08/02/19 10:50 Aerobic Blood Culture - Preliminary Blood - Venous NO GROWTH AFTER 2 DAYS Anaerobic Blood Culture - Preliminary NO GROWTH AFTER 2 DAYS Med Orders - Current: Current Medications Acetaminophen (Tylenol) 650 mg PO Q6H PRN PRN Reason: fever/pain Last Admin: 08/04/19 13:26 Dose: 650 mg Albuterol/Ipratropium (Duoneb 3.0-0.5 Mg/3 Ml) 3 ml NEB Q4HRRT PRN PRN Reason: Dyspnea Last Admin: 08/05/19 01:54 Dose: 3 ml Docusate Sodium (Colace) 100 mg PO DAILY PRN PRN Reason: Constipation Heparin Sodium (Porcine) (Heparin Sodium) 5,000 units SUBCUT Q8H [facility] Last Admin: 08/05/19 02:00 Dose: Not Given Hydromorphone HCl (Dilaudid) 4 mg PO Q4H PRN PRN Reason: Pain Last Admin: 08/05/19 06:29 Dose: 4 mg Insulin Aspart (Novolog) 0 unit SUBCUT TIDAC [facility]; Protocol Last Admin: 08/05/19 08:06 Dose: 2 unit Insulin Glargine (Lantus Solostar) 40 units SUBCUT BEDTIME [facility] Last Admin: 08/04/19 21:06 Dose: 40 units Levofloxacin (Levaquin) 750 mg PO Q24H [facility] Last Admin: 08/05/19 09:03 Dose: 750 mg Linezolid (Zyvox) 600 mg PO Q12H [facility] Last Admin: 08/05/19 09:01 Dose: 600 mg Lisinopril (Prinivil) 20 mg PO DAILY [facility] Last Admin: 08/05/19 08:11 Dose: 20 mg Nicotine (Habitrol) 14 mg TRDERM DAILY [facility] Last Admin: 08/05/19 08:13 Dose: 14 mg Pantoprazole Sodium (Protonix) 40 mg PO ACBREAKFAST [facility] Last Admin: 08/05/19 06:30 Dose: 40 mg Polyethylene Glycol (Miralax) 17 gm PO TID PRN PRN Reason: Constipation Tamsulosin HCl (Flomax) 0.4 mg PO BIDPC [facility] Last Admin: 08/05/19 08:10 Dose: 0.4 mg Temazepam (Restoril) 15 mg PO BEDTIME PRN PRN Reason: Insomnia Last Admin: 08/01/19 20:45 Dose: 15 mg Discontinued Medications Acetaminophen (Tylenol) 975 mg PO DAILY ONE Stop: 07/31/19 04:09 Last Admin: 07/31/19 04:13 Dose: 975 mg Amoxicillin/Clavulanate Potassium (Augmentin 875 Mg/125 Mg) 1 tab PO Q12HR [facility] Last Admin: 08/05/19 08:12 Dose: 1 tab Azithromycin (Zithromax) 500 mg PO Q24H [facility] Last Admin: 08/05/19 08:09 Dose: 500 mg Heparin Sodium (Porcine) (Heparin Sodium) 5,000 units SUBCUT Q8H [facility] Last Admin: 08/01/19 11:10 Dose: 5,000 units Hydromorphone HCl (Dilaudid) 0.5 mg IVPUSH ONETIME ONE Stop: 07/31/19 08:28 Last Admin: 07/31/19 11:45 Dose: Not Given Hydromorphone HCl (Dilaudid) 1 mg IVPUSH ONETIME ONE Stop: 07/31/19 09:10 Last Admin: 07/31/19 11:45 Dose: Not Given Hydromorphone HCl (Dilaudid) 2 mg IVPUSH ONETIME ONE Stop: 07/31/19 09:10 Last Admin: 07/31/19 09:28 Dose: 1 mg Hydromorphone HCl (Dilaudid) 2 mg IVPUSH Q4H PRN PRN Reason: Pain Last Admin: 08/03/19 10:30 Dose: 2 mg Sodium Chloride (Normal Saline) 1,000 mls @ 999 mls/hr IV .Bolus ONE Stop: 07/31/19 05:10 Last Infusion: 07/31/19 04:15 Dose: Infused Sodium Chloride (Normal Saline) 1,000 mls @ 999 mls/hr IV .Bolus ONE Stop: 07/31/19 05:11 Last Admin: 07/31/19 04:16 Dose: 999 mls/hr Cefepime HCl 1 gm/ Premix 50 mls @ 100 mls/hr IV ONETIME ONE Stop: 07/31/19 04:58 Last Admin: 07/31/19 05:04 Dose: 100 mls/hr Levofloxacin/Dextrose 750 mg/ (Premix) 150 mls @ 100 mls/hr IV ONETIME ONE Stop: 07/31/19 05:58 Last Admin: 07/31/19 04:50 Dose: 100 mls/hr Vancomycin HCl 1.5 gm/ Premix 300 mls @ 300 mls/hr IV ONETIME ONE Stop: 07/31/19 05:59 Last Admin: 07/31/19 05:04 Dose: 300 mls/hr Lactated Ringer's (Ringers, Lactated) 1,000 mls @ 125 mls/hr IV ASDIRECTED [facility] Last Admin: 07/31/19 19:43 Dose: 125 mls/hr Lactated Ringer's (Ringers, Lactated) 1,000 mls @ 999 mls/hr IV BOLUS ONE Stop: 07/31/19 07:42 Last Admin: 07/31/19 06:56 Dose: 999 mls/hr Vancomycin HCl 1.25 gm/ Sodium (Chloride) 250 mls @ 166.667 mls/hr IV Q12H [facility] Levofloxacin/Dextrose 750 mg/ (Premix) 150 mls @ 100 mls/hr IV Q24H [facility] Last Admin: 08/04/19 08:01 Dose: Not Given Cefepime HCl 2 gm/ Premix 50 mls @ 100 mls/hr IV Q8H [facility] Last Admin: 08/04/19 14:39 Dose: Not Given Lactated Ringer's (Ringers, Lactated) 1,000 mls @ 999 mls/hr IV .BOLUS ONE Stop: 07/31/19 08:57 Last Admin: 07/31/19 08:33 Dose: 999 mls/hr Norepinephrine Bitartrate (Norepinephr-0.9% Nacl 4 Mg/250) 4 mg in 250 mls @ 7.5 mls/hr IV TITRATE [facility]; Protocol Last Titration: 07/31/19 14:14 Dose: 0 mcg/min, 0 mls/hr Sodium Chloride (Normal Saline) 500 mls @ 999 mls/hr IV ONETIME ONE Stop: 07/31/19 09:28 Vancomycin HCl 1.25 gm/ Sodium (Chloride) 250 mls @ 166.667 mls/hr IV Q12H [facility] Last Admin: 08/01/19 18:14 Dose: 166.667 mls/hr Pantoprazole Sodium 40 mg/ (Sodium Chloride) 10 mls @ 300 mls/hr IV Q24H [facility] Last Admin: 08/04/19 14:40 Dose: Not Given Magnesium Sulfate 2 gm/ Premix 50 mls @ 25 mls/hr IV ONETIME ONE Stop: 08/01/19 09:26 Last Admin: 08/01/19 07:38 Dose: 25 mls/hr Vancomycin HCl 1.25 gm/ Sodium (Chloride) 250 mls @ 166.667 mls/hr IV Q8H [facility] Last Admin: 08/04/19 14:40 Dose: Not Given Magnesium Sulfate 4 gm/ Premix 100 mls @ 33.333 mls/hr IV ONETIME ONE Stop: 08/02/19 14:55 Last Admin: 08/02/19 13:34 Dose: 33.333 mls/hr Magnesium Sulfate 2 gm/ Premix 50 mls @ 50 mls/hr IV ONETIME ONE Stop: 08/03/19 09:00 Last Admin: 08/03/19 13:10 Dose: 50 mls/hr Magnesium Sulfate 4 gm/ Premix 100 mls @ 33.333 mls/hr IV ONETIME ONE Stop: 08/04/19 10:48 Last Admin: 08/04/19 08:18 Dose: Not Given Ibuprofen (Motrin) 800 mg PO ONETIME ONE Stop: 07/31/19 04:08 Last Admin: 07/31/19 04:14 Dose: 800 mg Insulin Aspart (Novolog) 0 unit SUBCUT TIDAC [facility]; Protocol Last Admin: 08/03/19 13:36 Dose: 3 unit Insulin Glargine (Lantus Solostar) 15 units SUBCUT BEDTIME [facility] Last Admin: 08/01/19 22:54 Dose: 15 units Insulin Glargine (Lantus Solostar) 20 units SUBCUT BEDTIME [facility] Last Admin: 08/02/19 20:45 Dose: 20 unit Insulin Glargine (Lantus Solostar) 28 units SUBCUT BEDTIME [facility] Last Admin: 08/03/19 20:51 Dose: 28 units Insulin Glargine (Lantus Solostar) 35 units SUBCUT BEDTIME [facility] Iopamidol (Isovue Multipack-370 (76%)) 50 ml IVPUSH ONETIME STA Stop: 08/01/19 12:23 Last Admin: 08/01/19 12:23 Dose: 50 ml Ketorolac Tromethamine (Toradol) 15 mg IVPUSH Q4H PRN PRN Reason: Pain Stop: 08/05/19 06:50 Ketorolac Tromethamine (Toradol) 30 mg IVPUSH Q6H PRN PRN Reason: Pain Last Admin: 08/03/19 03:39 Dose: 30 mg Ketorolac Tromethamine (Toradol) 30 mg IVPUSH Q6H PRN PRN Reason: Pain Lidocaine (Xylocaine-Mpf 2%) Confirm Administered Dose 5 ml .ROUTE .STK-MED ONE Stop: 07/31/19 08:55 Last Admin: 07/31/19 09:37 Dose: 5 ml Lisinopril (Prinivil) 20 mg PO ONETIME ONE Stop: 08/01/19 23:01 Last Admin: 08/01/19 22:55 Dose: 20 mg Lorazepam (Ativan) 1 mg IVPUSH Q8H PRN PRN Reason: Anxiety Last Admin: 08/01/19 19:31 Dose: 1 mg Lorazepam (Ativan) 1 mg IVPUSH Q6H PRN PRN Reason: Anxiety Last Admin: 08/03/19 08:14 Dose: 1 mg Magnesium Oxide (Magnesium Oxide) 400 mg PO ONETIME ONE Stop: 08/04/19 08:05 Last Admin: 08/04/19 08:52 Dose: 400 mg Midodrine (Midodrine) 5 mg PO TIDAC [facility] Last Admin: 08/01/19 12:34 Dose: Not Given Morphine Sulfate (Morphine) 4 mg IVPUSH Q4H PRN PRN Reason: Pain Last Admin: 07/31/19 12:03 Dose: 4 mg Naloxone HCl (Narcan) 0.4 mg IVPUSH ASDIRECTED PRN PRN Reason: narcotic overdose Potassium Chloride (Klor-Con M20) 40 meq PO ONETIME ONE Stop: 08/02/19 11:55 Last Admin: 08/02/19 12:40 Dose: 40 meq Sodium Chloride (Saline Flush) 10 ml FLUSH ASDIRECTED PRN PRN Reason: Keep Vein Open Last Admin: 07/31/19 04:16 Dose: 10 ml Sodium Chloride (Saline Flush) 2.5 ml FLUSH ASDIRECTED PRN PRN Reason: Keep Vein Open Last Admin: 07/31/19 04:16 Dose: 2.5 ml Sodium Chloride (Normal Saline) 10 ml IV ASDIRECTED PRN PRN Reason: IV Use Tamsulosin HCl (Flomax) 0.4 mg PO ONETIME ONE Stop: 07/31/19 16:27 Last Admin: 07/31/19 17:17 Dose: Not Given Vancomycin HCl (Vancomycin) 1,500 mg IV ONETIME ONE Stop: 07/31/19 04:34 Last Admin: 07/31/19 05:21 Dose: Not Given Vancomycin HCl (Pharmacy To Dose - Vancomycin) 1 dose .XX ASDIRECTED [facility] - Exam General: Alert, Oriented, Cooperative, No Acute Distress Lungs: Decreased Breath Sounds. No: Normal Respiratory Effort, Rhonchi Cardiovascular: Regular Rate, Regular Rhythm GI/Abdominal Exam: Normal Bowel Sounds, Soft, Non-Tender Extremities: Normal Inspection, Normal Range of Motion, Non-Tender Wound/Incisions: Dressing Dry and Intact, No Drainage. No: Erythema Psy/Mental Status: Alert, Normal Affect, Normal Mood Sepsis Event Note - Evaluation Sepsis Screening Result: Sepsis Risk - Focused Exam Vital Signs: Vital Signs Temp Pulse Resp BP BP BP Pulse Ox 08/05/19 08:11 150/76 H 08/05/19 08:00 98.1 F 96 16 150/76 H 97 08/05/19 06:33 100 18 94 L 08/05/19 04:03 98 18 94 L 08/05/19 03:50 98 18 96 08/05/19 03:40 97 20 96 08/05/19 02:48 100 20 92 L 08/05/19 02:30 98.1 F 102 H 24 H 142/65 H 88 L 08/05/19 02:23 87 L 08/05/19 02:22 88 L 08/05/19 02:00 88 L 08/05/19 01:54 24 H 86 L 08/04/19 23:57 98.2 F 100 19 149/68 H 93 L Date Exam was Performed: 08/05/19 Time Exam was Performed: 10:24 - Problem List & Annotations (1) Pneumonia SNOMED Code(s): 284163789 Code(s): J18.9 - PNEUMONIA, UNSPECIFIED ORGANISM Status: Acute Current Visit: Yes Qualifiers: Pneumonia type: aspiration pneumonia Laterality: bilateral Lung location : unspecified part of lung (2) Chronic pain SNOMED Code(s): 89863032 Code(s): G89.29 - OTHER CHRONIC PAIN Status: Chronic Current Visit: Yes (3) Narcotic dependence SNOMED Code(s): 494959312 Code(s): F11.20 - OPIOID DEPENDENCE, UNCOMPLICATED Status: Chronic Current Visit: Yes (4) Diabetes mellitus SNOMED Code(s): 23460118 Code(s): E11.9 - TYPE 2 DIABETES MELLITUS WITHOUT COMPLICATIONS Status: Chronic Current Visit: No Qualifiers: Diabetes mellitus type: type 2 Diabetes mellitus long-term insulin use: with long-term use (5) Hypertension SNOMED Code(s): 52282136 Code(s): I10 - ESSENTIAL (PRIMARY) HYPERTENSION Status: Chronic Current Visit: No Qualifiers: Hypertension type: essential hypertension Qualified Code(s): I10 - Essential (primary) hypertension (6) Schizophrenia SNOMED Code(s): 37019832 Code(s): F20.9 - SCHIZOPHRENIA, UNSPECIFIED Status: Chronic Current Visit : No Qualifiers: Schizophrenia type: unspecified Qualified Code(s): F20.9 - Schizophrenia, unspecified (7) Diabetic foot ulcer SNOMED Code(s): 948195084 Code(s): E11.621 - TYPE 2 DIABETES MELLITUS WITH FOOT ULCER; L97.509 - NON- PRESSURE CHRONIC ULCER OTH PRT UNSP FOOT W UNSP SEVERITY Status: Acute Current Visit: Yes - Problem List Review Problem List Initiated/Reviewed/Updated: Yes - My Orders Last 24 Hours: My Active Orders 08/04/19 11:43 Consult to Physical Therapy [PT Evaluation and Treatment] [CONS] Routine 08/04/19 21:00 Insulin Glarg,Human.Rec.Analog [LantUS Solostar] 40 units SUBCUT BEDTIME 08/05/19 07:30 Pantoprazole [ProTONIX] 40 mg PO ACBREAKFAST 08/05/19 08:45 Linezolid [Zyvox] 600 mg PO Q12H levoFLOXacin [Levaquin] 750 mg PO Q24H 08/06/19 05:11 BASIC METABOLIC PANEL,BMP [CHEM] AM CBC WITH AUTO DIFF [HEME] AM MAGNESIUM [CHEM] AM - Plan Plan:: This 59 year old male admitted with sepsis and severe CAP 1. severe CAP possible aspiration pneumonia - BC negative x 2 sets - Had worsening hypoxia overnight, CXR reveals bilateral airspace disease, but not significantly changed from CT on 08/01 - Augmentin and Azithromycin discontinued. Start Levaquin 750 mg PO daily and Linezolid 600 mg BID - Oxygen to keep sats >92%, continue to wean as possible. - Consult respiratory, IS every 1 hour and acapella. - Discussed at length regarding need for IV access. He adamantly refused to have anyone try access. He spoke with myself and Dr Segura. He understands he is receiving suboptimal treatment for severe CAP. He verbally agrees and contnues to refuse IV access. Refusal of treatment signed. 2. DM with foot ulcer: - COntinue Silver aquacel dressing changes - CT of ankle/foot, negative for osteomyelitis - Novolog SSI with BS check TIDAC. Increase Lantus to 40 units. - Continue Gabapentin 3. Narcotic dependence - Dilaudid PO every 4 hours PRN 4. Schizoaffective disorder/ psychiatric disorder: - Stable. Was recently started on Lunesta for sleep. Would stop this due to behaviors. - Reports feeling more depressed, [facility], but he refused at this time. GI prophylaxis: Protonix PO VTE prophylaxis: Heparin Code Status: Full Code Dispo: 1-2 days
--- NOTE | 2019-08-05 09:43 | CR ---
EXAM DATE: 07/31/19 PATIENT'S AGE: 59 Patient: ELIZABET FLORENTINO Facility: [facility] Site : 1960 Study: XRay-Chest -08/05/2019 3:12:21 AM Ordering Physician: Arun Segura Final Report: INDICATION: Shortness of breath TECHNIQUE: Frontal view of the chest. COMPARISON: None FINDINGS: There is patchy airspace disease diffusely involving the right lung. Mild patchy airspace disease is also noted in the perihilar left lung. There is no sizable pleural effusion or pneumothorax. The cardiomediastinal silhouette is normal. The visualized osseous structures are unremarkable. IMPRESSION: Patchy bilateral airspace disease, significantly worse on the right. Findings most likely relate to an infectious/inflammatory process. Correlate clinically. Dictated by Hakeme Shah MD @ Aug 05 2019 3:16AM ----- ADDENDUM ----- Bilateral airspace disease is not significantly changed in comparison to Prior CT chest from 08/01/2019. Dictated by Hakeem Shah MD @ Aug 05 2019 3:49AM Signed by: Hakeem Shah MD @08/05/2019 3:50:15 AM (Electronic Signature) Report Signed by Proxy. PHAM
--- NOTE | 2019-08-05 14:40 | ECHO ---
EXAM DATE: 07/31/19 PATIENT'S AGE: 59 The echocardiogram report can be seen in this patient's EMR (Electronic Medical Record) in the REPORTS section. The report has also been scanned into PACs. PHAM
[2019-08-05] MEDS: Insulin Glargine,Human Rec. Analog 100 Units/ML 3 ML Pen SUBCUT SCH (21:17)
[2019-08-05] MEDS: Temazepam 15 MG Cap PO PRN (23:16)
[2019-08-06] MEDS: Heparin Sodium 5,000 Units/ML Vial SUBCUT SCH ×3 (03:04→19:46)
[2019-08-06] MEDS: HYDROmorphone 2 MG Tab PO PRN ×5 (04:25→21:11)
[2019-08-06 05:42] LABS: BLOOD UREA NITROGEN,BUN 13 mg/dL (7.0-18.0); CARBON DIOXIDE,CO2 26.5 mmol/L (21.0-32.0); CHLORIDE,CL 99 mmol/L (98-107); GLUCOSE RANDOM 241 mg/dL (74-106); POTASSIUM,K 4.1 mmol/L (3.5-5.1); SODIUM,NA 134 mmol/L (136-148)
[2019-08-06] MEDS: Insulin Aspart 100 Units/ML 3 ML Pen SUBCUT SCH ×3 (07:11→18:21)
[2019-08-06] MEDS: Pantoprazole 40 MG Tab.CR PO SCH (07:12)
[2019-08-06] MEDS: Levofloxacin 250 MG Tab PO SCH (08:32)
[2019-08-06] MEDS: Lisinopril 10 MG Tab PO SCH (08:34)
[2019-08-06] MEDS: Linezolid 600 MG Tab PO SCH ×2 (08:35→21:14)
[2019-08-06] MEDS: Tamsulosin 0.4 MG Cap.ER PO SCH ×2 (08:36→18:04)
[2019-08-06] MEDS: Nicotine 14 MG/24 Hr Patch TRDERM SCH (08:39)
--- NOTE | 2019-08-06 10:56 | PCM.PN ---
- General Info Date of Service: 08/06/19 Admission Dx/Problem (Free Text): Admission Diagnosis/Problem Admission Diagnosis/Problem Pneumonia Subjective Update: Feeling improved today, got some rest overnight. No chest pain. Breathing improving. Cough present, but no longer productive. Pain to foot stable. Functional Status: Reports: Pain Controlled, Tolerating Diet, Ambulating, Urinating - Review of Systems General: Reports: No Symptoms. Denies: Fever, Weakness, Fatigue HEENT: Reports: No Symptoms. Denies: Rhinitis, Visual Changes Pulmonary: Reports: Cough. Denies: Shortness of Breath Cardiovascular: Reports: No Symptoms. Denies: Chest Pain Gastrointestinal: Reports: No Symptoms. Denies: Abdominal Pain, Nausea, Vomiting Genitourinary: Reports: No Symptoms. Denies: Dysuria, Frequency, Burning Musculoskeletal: Reports: No Symptoms Skin: Reports: No Symptoms Neurological: Reports: No Symptoms Psychiatric: Reports: No Symptoms - Patient Data Vitals - Most Recent: Last Vital Signs Temp 97.3 F 08/06/19 07:05 Pulse 89 08/06/19 07:05 Resp 17 08/06/19 07:05 BP 123/73 08/06/19 08:34 Pulse Ox 92 L 08/06/19 07:05 Weight - Most Recent: 93.894 kg I&O - Last 24 Hours: Intake & Output 08/05/19 08/06/19 08/06/19 22:59 06:59 14:59 Intake Total 3400 1040 Output Total 850 725 Balance 2550 315 Lab Results Last 24 Hours: Laboratory Results - last 24 hr 08/05/19 08/05/19 08/05/19 Range/Units 11:15 17:36 20:34 WBC (4.0-11.0) K/uL RBC (4.50-5.90) M/uL Hgb (13.0-17.0) g/dL Hct (38.0-50.0) % MCV (80.0-98.0) fL MCH (27.0-32.0) pg MCHC (31.0-37.0) g/dL RDW Std Deviation (28.0-62.0) fl RDW Coeff of Thor (11.0-15.0) % Plt Count (150-400) K/uL MPV (7.40-12.00) fL Add Manual Diff Neutrophils % (Manual) (48.0-80.0) % Band Neutrophils % % Lymphocytes % (Manual) (16.0-40.0) % Monocytes % (Manual) (0.0-15.0) % Eosinophils % (Manual) (0.0-7.0) % Basophils % (Manual) (0.0-1.5) % Metamyelocytes % % Myelocytes % % Nucleated RBC % /100WBC Absolute Seg Neuts (1.4-5.7) Band Neutrophils # Lymphocytes # (Manual) (0.6-2.4) Monocytes # (Manual) (0.0-0.8) Eosinophils # (Manual) (0.0-0.7) Basophils # (Manual) (0.0-0.1) Absolute Metamyelocyte Absolute Myelocytes Nucleated RBCs # K/uL Sodium (136-148) mmol/L Potassium (3.5-5.1) mmol/L Chloride (98-107) mmol/L Carbon Dioxide (21.0-32.0) mmol/L BUN (7.0-18.0) mg/dL Creatinine (0.8-1.3) mg/dL Est Cr Clr Drug Dosing mL/min Estimated GFR (MDRD) ml/min Glucose (74-106) mg/dL POC Glucose 275 H 319 H 288 H (60-110) mg/dL Calcium (8.5-10.1) mg/dL Magnesium (1.8-2.4) mg/dL 08/05/19 08/06/19 08/06/19 Range/Units 21:17 04:38 04:38 WBC 9.44 (4.0-11.0) K/uL RBC 3.51 L (4.50-5.90) M/uL Hgb 11.2 L (13.0-17.0) g/dL Hct 33.1 L (38.0-50.0) % MCV 94.3 (80.0-98.0) fL MCH 31.9 (27.0-32.0) pg MCHC 33.8 (31.0-37.0) g/dL RDW Std Deviation 41.0 (28.0-62.0) fl RDW Coeff of Thor 12 (11.0-15.0) % Plt Count 259 (150-400) K/uL MPV 10.00 (7.40-12.00) fL Add Manual Diff YES Neutrophils % (Manual) 45 L (48.0-80.0) % Band Neutrophils % 11 % Lymphocytes % (Manual) 27 (16.0-40.0) % Monocytes % (Manual) 8 (0.0-15.0) % Eosinophils % (Manual) 6 (0.0-7.0) % Basophils % (Manual) 1 (0.0-1.5) % Metamyelocytes % 1 % Myelocytes % 1 % Nucleated RBC % 0.0 /100WBC Absolute Seg Neuts 4.2 (1.4-5.7) Band Neutrophils # 1.0 Lymphocytes # (Manual) 2.5 H (0.6-2.4) Monocytes # (Manual) 0.8 (0.0-0.8) Eosinophils # (Manual) 0.6 (0.0-0.7) Basophils # (Manual) 0.1 (0.0-0.1) Absolute Metamyelocyte 0.1 Absolute Myelocytes 0.1 Nucleated RBCs # 0 K/uL Sodium 134 L (136-148) mmol/L Potassium 4.1 (3.5-5.1) mmol/L Chloride 99 (98-107) mmol/L Carbon Dioxide 26.5 (21.0-32.0) mmol/L BUN 13 (7.0-18.0) mg/dL Creatinine 0.7 L (0.8-1.3) mg/dL Est Cr Clr Drug Dosing 109.93 mL/min Estimated GFR (MDRD) > 60.0 ml/min Glucose 241 H (74-106) mg/dL POC Glucose 312 H (60-110) mg/dL Calcium 9.0 (8.5-10.1) mg/dL Magnesium 1.6 L (1.8-2.4) mg/dL 08/06/19 Range/Units 07:10 WBC (4.0-11.0) K/uL RBC (4.50-5.90) M/uL Hgb (13.0-17.0) g/dL Hct (38.0-50.0) % MCV (80.0-98.0) fL MCH (27.0-32.0) pg MCHC (31.0-37.0) g/dL RDW Std Deviation (28.0-62.0) fl RDW Coeff of Thor (11.0-15.0) % Plt Count (150-400) K/uL MPV (7.40-12.00) fL Add Manual Diff Neutrophils % (Manual) (48.0-80.0) % Band Neutrophils % % Lymphocytes % (Manual) (16.0-40.0) % Monocytes % (Manual) (0.0-15.0) % Eosinophils % (Manual) (0.0-7.0) % Basophils % (Manual) (0.0-1.5) % Metamyelocytes % % Myelocytes % % Nucleated RBC % /100WBC Absolute Seg Neuts (1.4-5.7) Band Neutrophils # Lymphocytes # (Manual) (0.6-2.4) Monocytes # (Manual) (0.0-0.8) Eosinophils # (Manual) (0.0-0.7) Basophils # (Manual) (0.0-0.1) Absolute Metamyelocyte Absolute Myelocytes Nucleated RBCs # K/uL Sodium (136-148) mmol/L Potassium (3.5-5.1) mmol/L Chloride (98-107) mmol/L Carbon Dioxide (21.0-32.0) mmol/L BUN (7.0-18.0) mg/dL Creatinine (0.8-1.3) mg/dL Est Cr Clr Drug Dosing mL/min Estimated GFR (MDRD) ml/min Glucose (74-106) mg/dL POC Glucose 229 H (60-110) mg/dL Calcium (8.5-10.1) mg/dL Magnesium (1.8-2.4) mg/dL [place] Results Last 24 Hours: Microbiology 08/05/19 11:16 Gram Stain - Preliminary Sputum - Expectorated 08/02/19 11:05 Aerobic Blood Culture - Preliminary Blood - Venous - Lab Draw NO GROWTH AFTER 3 DAYS Anaerobic Blood Culture - Preliminary NO GROWTH AFTER 3 DAYS 08/02/19 10:50 Aerobic Blood Culture - Preliminary Blood - Venous NO GROWTH AFTER 3 DAYS Anaerobic Blood Culture - Preliminary NO GROWTH AFTER 3 DAYS 08/05/19 09:35 Influenza Type A Antigen Screen - Final Nasopharyngeal Swab NEGATIVE INFLUENZA A VIRUS AG REFERENCE RANGE: NEGATIVE Influenza Type B Antigen Screen - Final NEGATIVE INFLUENZA B VIRUS AG REFERENCE RANGE: NEGATIVE Med Orders - Current: Current Medications Acetaminophen (Tylenol) 650 mg PO Q6H PRN PRN Reason: fever/pain Last Admin: 08/04/19 13:26 Dose: 650 mg Albuterol/Ipratropium (Duoneb 3.0-0.5 Mg/3 Ml) 3 ml NEB Q4HRRT PRN PRN Reason: Dyspnea Last Admin: 08/05/19 10:32 Dose: 3 ml Docusate Sodium (Colace) 100 mg PO DAILY PRN PRN Reason: Constipation Heparin Sodium (Porcine) (Heparin Sodium) 5,000 units SUBCUT Q8H [facility] Last Admin: 08/06/19 03:04 Dose: Not Given Hydromorphone HCl (Dilaudid) 4 mg PO Q4H PRN PRN Reason: Pain Last Admin: 08/06/19 08:37 Dose: 4 mg Insulin Aspart (Novolog) 0 unit SUBCUT TIDAC [facility]; Protocol Last Admin: 08/06/19 07:11 Dose: 4 unit Insulin Glargine (Lantus Solostar) 40 units SUBCUT BEDTIME [facility] Last Admin: 08/05/19 21:17 Dose: 40 units Levofloxacin (Levaquin) 750 mg PO Q24H [facility] Last Admin: 08/06/19 08:32 Dose: 750 mg Linezolid (Zyvox) 600 mg PO Q12H [facility] Last Admin: 08/06/19 08:35 Dose: 600 mg Lisinopril (Prinivil) 20 mg PO DAILY [facility] Last Admin: 08/06/19 08:34 Dose: 20 mg Nicotine (Habitrol) 14 mg TRDERM DAILY [facility] Last Admin: 08/06/19 08:39 Dose: 14 mg Pantoprazole Sodium (Protonix) 40 mg PO ACBREAKFAST [facility] Last Admin: 08/06/19 07:12 Dose: 40 mg Polyethylene Glycol (Miralax) 17 gm PO TID PRN PRN Reason: Constipation Tamsulosin HCl (Flomax) 0.4 mg PO BIDPC [facility] Last Admin: 08/06/19 08:36 Dose: Not Given Temazepam (Restoril) 15 mg PO BEDTIME PRN PRN Reason: Insomnia Last Admin: 08/05/19 23:16 Dose: 15 mg Discontinued Medications Acetaminophen (Tylenol) 975 mg PO DAILY ONE Stop: 07/31/19 04:09 Last Admin: 07/31/19 04:13 Dose: 975 mg Amoxicillin/Clavulanate Potassium (Augmentin 875 Mg/125 Mg) 1 tab PO Q12HR [facility] Last Admin: 08/05/19 08:12 Dose: 1 tab Azithromycin (Zithromax) 500 mg PO Q24H [facility] Last Admin: 08/05/19 08:09 Dose: 500 mg Heparin Sodium (Porcine) (Heparin Sodium) 5,000 units SUBCUT Q8H [facility] Last Admin: 08/01/19 11:10 Dose: 5,000 units Hydromorphone HCl (Dilaudid) 0.5 mg IVPUSH ONETIME ONE Stop: 07/31/19 08:28 Last Admin: 07/31/19 11:45 Dose: Not Given Hydromorphone HCl (Dilaudid) 1 mg IVPUSH ONETIME ONE Stop: 07/31/19 09:10 Last Admin: 07/31/19 11:45 Dose: Not Given Hydromorphone HCl (Dilaudid) 2 mg IVPUSH ONETIME ONE Stop: 07/31/19 09:10 Last Admin: 07/31/19 09:28 Dose: 1 mg Hydromorphone HCl (Dilaudid) 2 mg IVPUSH Q4H PRN PRN Reason: Pain Last Admin: 08/03/19 10:30 Dose: 2 mg Sodium Chloride (Normal Saline) 1,000 mls @ 999 mls/hr IV .Bolus ONE Stop: 07/31/19 05:10 Last Infusion: 07/31/19 04:15 Dose: Infused Sodium Chloride (Normal Saline) 1,000 mls @ 999 mls/hr IV .Bolus ONE Stop: 07/31/19 05:11 Last Admin: 07/31/19 04:16 Dose: 999 mls/hr Cefepime HCl 1 gm/ Premix 50 mls @ 100 mls/hr IV ONETIME ONE Stop: 07/31/19 04:58 Last Admin: 07/31/19 05:04 Dose: 100 mls/hr Levofloxacin/Dextrose 750 mg/ (Premix) 150 mls @ 100 mls/hr IV ONETIME ONE Stop: 07/31/19 05:58 Last Admin: 07/31/19 04:50 Dose: 100 mls/hr Vancomycin HCl 1.5 gm/ Premix 300 mls @ 300 mls/hr IV ONETIME ONE Stop: 07/31/19 05:59 Last Admin: 07/31/19 05:04 Dose: 300 mls/hr Lactated Ringer's (Ringers, Lactated) 1,000 mls @ 125 mls/hr IV ASDIRECTED JAZMIN Last Admin: 07/31/19 19:43 Dose: 125 mls/hr Lactated Ringer's (Ringers, Lactated) 1,000 mls @ 999 mls/hr IV BOLUS ONE Stop: 07/31/19 07:42 Last Admin: 07/31/19 06:56 Dose: 999 mls/hr Vancomycin HCl 1.25 gm/ Sodium (Chloride) 250 mls @ 166.667 mls/hr IV Q12H JAZMIN Levofloxacin/Dextrose 750 mg/ (Premix) 150 mls @ 100 mls/hr IV Q24H [facility] Last Admin: 08/04/19 08:01 Dose: Not Given Cefepime HCl 2 gm/ Premix 50 mls @ 100 mls/hr IV Q8H [facility] Last Admin: 08/04/19 14:39 Dose: Not Given Lactated Ringer's (Ringers, Lactated) 1,000 mls @ 999 mls/hr IV .BOLUS ONE Stop: 07/31/19 08:57 Last Admin: 07/31/19 08:33 Dose: 999 mls/hr Norepinephrine Bitartrate (Norepinephr-0.9% Nacl 4 Mg/250) 4 mg in 250 mls @ 7.5 mls/hr IV TITRATE [facility]; Protocol Last Titration: 07/31/19 14:14 Dose: 0 mcg/min, 0 mls/hr Sodium Chloride (Normal Saline) 500 mls @ 999 mls/hr IV ONETIME ONE Stop: 07/31/19 09:28 Vancomycin HCl 1.25 gm/ Sodium (Chloride) 250 mls @ 166.667 mls/hr IV Q12H [facility] Last Admin: 08/01/19 18:14 Dose: 166.667 mls/hr Pantoprazole Sodium 40 mg/ (Sodium Chloride) 10 mls @ 300 mls/hr IV Q24H [facility] Last Admin: 08/04/19 14:40 Dose: Not Given Magnesium Sulfate 2 gm/ Premix 50 mls @ 25 mls/hr IV ONETIME ONE Stop: 08/01/19 09:26 Last Admin: 08/01/19 07:38 Dose: 25 mls/hr Vancomycin HCl 1.25 gm/ Sodium (Chloride) 250 mls @ 166.667 mls/hr IV Q8H JAZMIN Last Admin: 08/04/19 14:40 Dose: Not Given Magnesium Sulfate 4 gm/ Premix 100 mls @ 33.333 mls/hr IV ONETIME ONE Stop: 08/02/19 14:55 Last Admin: 08/02/19 13:34 Dose: 33.333 mls/hr Magnesium Sulfate 2 gm/ Premix 50 mls @ 50 mls/hr IV ONETIME ONE Stop: 08/03/19 09:00 Last Admin: 08/03/19 13:10 Dose: 50 mls/hr Magnesium Sulfate 4 gm/ Premix 100 mls @ 33.333 mls/hr IV ONETIME ONE Stop: 08/04/19 10:48 Last Admin: 08/04/19 08:18 Dose: Not Given Ibuprofen (Motrin) 800 mg PO ONETIME ONE Stop: 07/31/19 04:08 Last Admin: 07/31/19 04:14 Dose: 800 mg Insulin Aspart (Novolog) 0 unit SUBCUT TIDAC [facility]; Protocol Last Admin: 08/03/19 13:36 Dose: 3 unit Insulin Glargine (Lantus Solostar) 15 units SUBCUT BEDTIME [facility] Last Admin: 08/01/19 22:54 Dose: 15 units Insulin Glargine (Lantus Solostar) 20 units SUBCUT BEDTIME JAZMIN Last Admin: 08/02/19 20:45 Dose: 20 unit Insulin Glargine (Lantus Solostar) 28 units SUBCUT BEDTIME [facility] Last Admin: 08/03/19 20:51 Dose: 28 units Insulin Glargine (Lantus Solostar) 35 units SUBCUT BEDTIME [facility]MIN Iopamidol (Isovue Multipack-370 (76%)) 50 ml IVPUSH ONETIME STA Stop: 08/01/19 12:23 Last Admin: 08/01/19 12:23 Dose: 50 ml Ketorolac Tromethamine (Toradol) 15 mg IVPUSH Q4H PRN PRN Reason: Pain Stop: 08/05/19 06:50 Ketorolac Tromethamine (Toradol) 30 mg IVPUSH Q6H PRN PRN Reason: Pain Last Admin: 08/03/19 03:39 Dose: 30 mg Ketorolac Tromethamine (Toradol) 30 mg IVPUSH Q6H PRN PRN Reason: Pain Lidocaine (Xylocaine-Mpf 2%) Confirm Administered Dose 5 ml .ROUTE .STK-MED ONE Stop: 07/31/19 08:55 Last Admin: 07/31/19 09:37 Dose: 5 ml Lisinopril (Prinivil) 20 mg PO ONETIME ONE Stop: 08/01/19 23:01 Last Admin: 08/01/19 22:55 Dose: 20 mg Lorazepam (Ativan) 1 mg IVPUSH Q8H PRN PRN Reason: Anxiety Last Admin: 08/01/19 19:31 Dose: 1 mg Lorazepam (Ativan) 1 mg IVPUSH Q6H PRN PRN Reason: Anxiety Last Admin: 08/03/19 08:14 Dose: 1 mg Magnesium Oxide (Magnesium Oxide) 400 mg PO ONETIME ONE Stop: 08/04/19 08:05 Last Admin: 08/04/19 08:52 Dose: 400 mg Midodrine (Midodrine) 5 mg PO TIDAC JAZMIN Last Admin: 08/01/19 12:34 Dose: Not Given Morphine Sulfate (Morphine) 4 mg IVPUSH Q4H PRN PRN Reason: Pain Last Admin: 07/31/19 12:03 Dose: 4 mg Naloxone HCl (Narcan) 0.4 mg IVPUSH ASDIRECTED PRN PRN Reason: narcotic overdose Potassium Chloride (Klor-Con M20) 40 meq PO ONETIME ONE Stop: 08/02/19 11:55 Last Admin: 08/02/19 12:40 Dose: 40 meq Sodium Chloride (Saline Flush) 10 ml FLUSH ASDIRECTED PRN PRN Reason: Keep Vein Open Last Admin: 07/31/19 04:16 Dose: 10 ml Sodium Chloride (Saline Flush) 2.5 ml FLUSH ASDIRECTED PRN PRN Reason: Keep Vein Open Last Admin: 07/31/19 04:16 Dose: 2.5 ml Sodium Chloride (Normal Saline) 10 ml IV ASDIRECTED PRN PRN Reason: IV Use Tamsulosin HCl (Flomax) 0.4 mg PO ONETIME ONE Stop: 07/31/19 16:27 Last Admin: 07/31/19 17:17 Dose: Not Given Vancomycin HCl (Vancomycin) 1,500 mg IV ONETIME ONE Stop: 07/31/19 04:34 Last Admin: 07/31/19 05:21 Dose: Not Given Vancomycin HCl (Pharmacy To Dose - Vancomycin) 1 dose .XX ASDIRECTED JAZMIN - Exam General: Alert, Oriented, Cooperative, No Acute Distress HEENT: Pupils Equal Lungs: Normal Respiratory Effort, Wheezing (scant, R) Cardiovascular: Regular Rate, Regular Rhythm GI/Abdominal Exam: Normal Bowel Sounds, Soft, Non-Tender Back Exam: Normal Inspection, Full Range of Motion Extremities: Normal Inspection, Normal Range of Motion, Non-Tender, No Pedal Edema Neurological: No New Focal Deficit Psy/Mental Status: Alert, Normal Affect, Normal Mood Sepsis Event Note - Evaluation Sepsis Screening Result: No Definite Risk - Focused Exam Vital Signs: Vital Signs Temp Pulse Resp BP BP Pulse Ox 08/06/19 08:34 123/73 08/06/19 07:05 97.3 F 89 17 123/73 92 L 08/06/19 04:27 97.2 F 93 15 131/62 91 L 08/06/19 00:45 86 14 93 L 08/05/19 23:09 97.3 F 92 18 138/71 93 L Date Exam was Performed: 08/06/19 Time Exam was Performed: 10:53 - Problem List & Annotations (1) Pneumonia SNOMED Code(s): 057583476 Code(s): J18.9 - PNEUMONIA, UNSPECIFIED ORGANISM Status: Acute Current Visit: Yes Qualifiers: Pneumonia type: aspiration pneumonia Laterality: bilateral Lung location : unspecified part of lung (2) Chronic pain SNOMED Code(s): 46459885 Code(s): G89.29 - OTHER CHRONIC PAIN Status: Chronic Current Visit: Yes (3) Narcotic dependence SNOMED Code(s): 161075131 Code(s): F11.20 - OPIOID DEPENDENCE, UNCOMPLICATED Status: Chronic Current Visit: Yes (4) Diabetes mellitus SNOMED Code(s): 22081103 Code(s): E11.9 - TYPE 2 DIABETES MELLITUS WITHOUT COMPLICATIONS Status: Chronic Current Visit: No Qualifiers: Diabetes mellitus type: type 2 Diabetes mellitus termite helper insulin use: with termite helper use (5) Hypertension SNOMED Code(s): 10119681 Code(s): I10 - ESSENTIAL (PRIMARY) HYPERTENSION Status: Chronic Current Visit: No Qualifiers: Hypertension type: essential hypertension Qualified Code(s): I10 - Essential (primary) hypertension (6) Schizophrenia SNOMED Code(s): 61589344 Code(s): F20.9 - SCHIZOPHRENIA, UNSPECIFIED Status: Chronic Current Visit : No Qualifiers: Schizophrenia type: unspecified Qualified Code(s): F20.9 - Schizophrenia, unspecified (7) Diabetic foot ulcer SNOMED Code(s): 533846546 Code(s): E11.621 - TYPE 2 DIABETES MELLITUS WITH FOOT ULCER; L97.509 - NON- PRESSURE CHRONIC ULCER OTH PRT UNSP FOOT W UNSP SEVERITY Status: Acute Current Visit: Yes - Problem List Review Problem List Initiated/Reviewed/Updated: Yes - My Orders Last 24 Hours: My Active Orders 08/05/19 11:16 CULTURE SPUTUM + SMEAR [RM] Routine 08/06/19 08:36 Oxygen Therapy [RC] PRN 08/06/19 10:49 Mucker Operator Discontinue [Cardiac Monitoring Discontinue] [RC] Click to Edit - Plan Plan:: This 59 year old male admitted with sepsis and severe CAP 1. severe CAP possible aspiration pneumonia - Feels improved today. - Continue Levaquin 750 mg PO daily and Linezolid 600 mg BID - Oxygen to keep sats >90%, continue to wean as possible. - Consult respiratory, IS every 1 hour and acapella. 2. DM with foot ulcer: stable - Continue Silver aquacel dressing changes - CT of ankle/foot, negative for osteomyelitis - Novolog SSI with BS check TIDAC. Lantus to 40 units. - Continue Gabapentin 3. Narcotic dependence - Dilaudid PO every 4 hours PRN 4. Schizoaffective disorder/ psychiatric disorder: - Stable. Was recently started on Lunesta for sleep. Would stop this due to behaviors. GI prophylaxis: Protonix PO VTE prophylaxis: Heparin Code Status: Full Code Dispo: 1 day
[2019-08-06] MEDS: Insulin Glargine,Human Rec. Analog 100 Units/ML 3 ML Pen SUBCUT SCH (21:11)
[2019-08-06] MEDS: Temazepam 15 MG Cap PO PRN (23:19)
[2019-08-07] MEDS: HYDROmorphone 2 MG Tab PO PRN ×3 (01:17→10:34)
[2019-08-07] MEDS: Heparin Sodium 5,000 Units/ML Vial SUBCUT SCH ×2 (02:46→10:43)
[2019-08-07] MEDS: Pantoprazole 40 MG Tab.CR PO SCH (06:33)
[2019-08-07] MEDS: Insulin Aspart 100 Units/ML 3 ML Pen SUBCUT SCH ×2 (06:34→11:35)
[2019-08-07] MEDS: Linezolid 600 MG Tab PO SCH ×3 (08:35→08:45)
[2019-08-07] MEDS: Tamsulosin 0.4 MG Cap.ER PO SCH ×2 (08:38)
[2019-08-07] MEDS: Levofloxacin 250 MG Tab PO SCH (08:39)
[2019-08-07] MEDS: Lisinopril 10 MG Tab PO SCH (08:39)
[2019-08-07] MEDS: Nicotine 14 MG/24 Hr Patch TRDERM SCH (08:40)
--- NOTE | 2019-08-07 10:19 | PCM.DCSUM1 ---
Discharge Summary - Hospital Course Brief History: This 59 year old male with pmh of HTN, DM Type 2, schizoaffective disorder with recent dissociative event, and chronic pain on narcotics from diabetic ulcer to L anterior ankle, presented to the ED via EMS this morning when his fiance found him urinating in the kitchen and trying to drink out of a speaker. This morning he was alert and oriented. Reports he has not been feeling well for the past few days, with low grade fevers and productive cough, that was green and thick. He has denies chest pain or SOB. No concerns with abdominal pain or urinary concerns. No diarrhea or constipation. He has been taking Dilaudid 4 mg, 2 tabs every 4-6 hours, per his fiance. He admits to taking 4 mg, but she said he has been taking more. He had taken some dilaudid the other day, got weak in his knees and feel hitting his head on the counter. No headaches and they did not seek medical care after this. This morning with the altered state in the kitchen, he was talking gibberish. In the ED labwork WNL, lactic acid 0.9. CXR revealed R mid to Lower lobe infiltrate , head CT negative. He was noted to be tachycardic and febrile 102 F. He was give 2 L NS in the ED along with Vancomycin, Levaquin and Cefepime. He was admitted inpatient for sepsis and pneumonia. Dr Suarez. After initial assessment patient very lethargic with BP 80s/40s. Given anouther 2 L LR bolus with minimal improvement of blood pressures. He became more alert. levophed gtt started and transferred to ICU for further management and care to stabilize. Dr Holt called to evaluate patient. Diagnosis: Stroke: No - Discharge Data Discharge Date: 08/07/19 Discharge Disposition: Home, Self-Care 01 Condition: Good - Referral to Home Health Primary Care Physician: Pedro Suarez MD - Discharge Diagnosis/Problem(s) (1) Pneumonia SNOMED Code(s): 473953332 ICD Code: J18.9 - PNEUMONIA, UNSPECIFIED ORGANISM Status: Acute Current Visit: Yes Qualifiers: Pneumonia type: due to methicillin-resistant Staphylococcus aureus (MRSA) Laterality: right Lung location: unspecified part of lung Qualified Code(s) : J15.212 - Pneumonia due to Methicillin resistant Staphylococcus aureus (2) Chronic pain SNOMED Code(s): 94149748 ICD Code: G89.29 - OTHER CHRONIC PAIN Status: Chronic Current Visit: Yes (3) Narcotic dependence SNOMED Code(s): 839098133 ICD Code: F11.20 - OPIOID DEPENDENCE, UNCOMPLICATED Status: Chronic Current Visit: Yes (4) Diabetes mellitus SNOMED Code(s): 34078794 ICD Code: E11.9 - TYPE 2 DIABETES MELLITUS WITHOUT COMPLICATIONS Status: Chronic Current Visit: No Qualifiers: Diabetes mellitus type: type 2 Diabetes mellitus cheese blender insulin use: with assisted use (5) Hypertension SNOMED Code(s): 01711611 ICD Code: I10 - ESSENTIAL (PRIMARY) HYPERTENSION Status: Chronic Current Visit: No Qualifiers: Hypertension type: essential hypertension Qualified Code(s): I10 - Essential (primary) hypertension (6) Schizophrenia SNOMED Code(s): 86912360 ICD Code: F20.9 - SCHIZOPHRENIA, UNSPECIFIED Status: Chronic Current Visit: No Qualifiers: Schizophrenia type: unspecified Qualified Code(s): F20.9 - Schizophrenia, unspecified (7) Diabetic foot ulcer SNOMED Code(s): 395218198 ICD Code: E11.621 - TYPE 2 DIABETES MELLITUS WITH FOOT ULCER; L97.509 - NON- PRESSURE CHRONIC ULCER OTH PRT UNSP FOOT W UNSP SEVERITY Status: Acute Current Visit: Yes - Patient Summary/Data Consults: Consultations 08/03/19 10:25 Consult to Wound Care Services [CONS] Routine 08/03/19 16:46 Consult to Physician [CONS] Routine 08/04/19 11:43 Consult to Physical Therapy [PT Evaluation and Treatment] [CONS] Routine - Patient Instructions Diet: Heart Healthy Diet, Diabetic Diet Activity: As Tolerated, No Strenuous Activities Driving: Do Not Drive Showering/Bathing: May Shower Wound/Incision Care: Change Dressing Daily Notify Provider of: Fever, Increased Pain, Swelling and Redness, Drainage, Nausea and/or Vomiting - Discharge Plan *PRESCRIPTION DRUG MONITORING PROGRAM REVIEWED*: Not Applicable *COPY OF PRESCRIPTION DRUG MONITORING REPORT IN PATIENT RAJINDER: Not Applicable Prescriptions/Med Rec: levoFLOXacin [Levaquin] 750 mg PO DAILY #5 tab Linezolid [Zyvox] 600 mg PO Q12H #20 tablet Home Medications: Home Meds Gabapentin [Neurontin] 600 mg PO TID 03/11/19 [History] Insulin Glarg,Human.Rec.Analog [Lantus Solostar] 40 unit SUBCUT DAILY 03/11/19 [ History] Lisinopril 20 mg PO DAILY 03/11/19 [History] Omeprazole 20 mg PO ACBREAKFAST 03/11/19 [History] Insulin Lispro [Humalog Kwikpen U-100] 0 unit SQ TIDAC 07/13/19 [History] Lidocaine 5% 1 applicful TOP TID PRN 07/13/19 [History] Silver/Foam Bandage [Aquacel Ag Foam 8"X8" Dressing] 1 each TP DAILY 7 Days #7 bandage 07/15/19 [Rx] HYDROmorphone [Dilaudid] 4 mg PO .Q4-6H PRN 07/31/19 [History] Acetaminophen [Tylenol] 650 mg PO Q6H PRN tablet 08/07/19 [Rx] Linezolid [Zyvox] 600 mg PO Q12H #20 tablet 08/07/19 [Rx] levoFLOXacin [Levaquin] 750 mg PO DAILY #5 tab 08/07/19 [Rx] Oxygen Therapy Mode: Nasal Cannula Oxygen Flow Rate (L/min): 2 Patient Handouts: Linezolid tablets, Levofloxacin tablets, Community-Acquired Pneumonia, Adult, [id number] Referrals: [facility] [Outside] Pedro Suarez MD [Primary Care Provider] - 08/12/19 9:00 am - Discharge Summary/Plan Comment DC Time >30 min.: Yes (arrange oxygen therapy) Discharge Summary/Plan Comment: Admitting Diagnoses: Septic shock acute hypoxic respiratory failure Suspected severe CAP Suspected aspiration PNA Discharge Diagnoses: Septic Shock MRSA Pneumonia Other PMH: Dm Type 2 Hx alcohol abuse HX tobacco abuse Hx schizoaffective disorder Hx DM foot ulcer Sylvester was admitted, as above he decline during first few hours of admission, he was transferred to ICU due to septic shock needing vasopressors. He was placed on Levophed for a few hours, antibiotic coverage was expanded to cover aspiration pneumonia as well as MRSA pneumonia. Central line as well as arterial line were placed. He was treated with Levaquin, Cefepime and Vancomycin. CT of chest reveled diffuse infiltrates R greater than L and no PE. He was slowly weaned from pressors and continued to improved. He has continued to need oxygen therapy, which was slowly weaned as well. During stay he was demanding pain medication, Dilaudid was continued and slowly weaned to 4 mg PO every 4-6 hours. BC negative x 4 during stay. Sputum initially normal respiratory adi. IV access was lost after central line was discontinued and he adamantly refused for another line to be placed. He was transitioned to Augmentin and Azithromycin. After 24 hours of this, he again has mild worsening of breathing symptoms. repeat sputum obtained. Treatment course was changed to Levaquin and Linezolid, within 24hrs he significantly improved and has continued to improve. Today sputum returns with MRSA. He is requesting discharge today. He remains on 2 L NC. He is declining further laboratory testing and is asking for discharge. He is aware he needs oxygen. He room air challenged him, but sats dropped to 86-87%, he was placed on 4 L NC and returned to 94%. He will be discharged home with 2 L NC oxygen continuously. He is to follow up with Dr Suarez. He will be discharged home on Levaquin 750 mg x 5 more days and Linezolid 600 mf BID for 10 more days for MRSA pneumonia. I expressed the importance of taking Linezolid due to MRSA pneumonia, he verbally understood. I recommended to stop Lunesta due to AMS with recent initiation of this medication and to discuss different options with Dr Suarez. I also counseled him on taking pain medications as prescribed, as he was allegedly, per finance taking 8 mg of Dilaudid every 4 hrs at home prior to admission. He is to return to ED or clinic if concerns were to arise. During stay imaging of foot was obtained to insure osteomyelitis was not present. Wound continues to heal, with aquacel silver dressings. CT negative. - General Info Date of Service: 08/07/19 Admission Dx/Problem (Free Text: Admission Diagnosis/Problem Admission Diagnosis/Problem Pneumonia Subjective Update: No concerns today. Asking for discharge home. Functional Status: Reports: Pain Controlled, Tolerating Diet, Ambulating, Urinating - Review of Systems HEENT: Reports: No Symptoms. Denies: Headaches, Visual Changes Pulmonary: Reports: No Symptoms. Denies: Shortness of Breath Cardiovascular: Reports: No Symptoms. Denies: Chest Pain Gastrointestinal: Reports: No Symptoms. Denies: Abdominal Pain, Nausea, Vomiting Genitourinary: Reports: No Symptoms. Denies: Dysuria Musculoskeletal: Reports: No Symptoms Skin: Reports: No Symptoms Neurological: Reports: No Symptoms Psychiatric: Reports: No Symptoms - Patient Data Vitals - Most Recent: Last Vital Signs Temp 97.6 F 08/07/19 08:58 Pulse 92 08/07/19 08:58 Resp 18 08/07/19 08:58 BP 126/68 08/07/19 08:58 Pulse Ox 91 L 08/07/19 08:58 Weight - Most Recent: 90.6 kg I&O - Last 24 hours: Intake & Output 08/06/19 08/07/19 08/07/19 22:59 06:59 14:59 Intake Total 590 400 Output Total 250 Balance 340 400 Lab Results - Last 24 hrs: Laboratory Results - last 24 hr 08/06/19 08/06/19 08/06/19 Range/Units 11:31 16:57 20:59 POC Glucose 296 H 273 H 309 H (60-110) mg/dL 08/07/19 Range/Units 06:04 POC Glucose 141 H (60-110) mg/dL CELSO Results - Last 24 hrs: Microbiology 08/05/19 11:16 Gram Stain - Final Sputum - Expectorated Sputum Culture - Final (Mrsa) Staphylococcus Aureus Normal Respiratory Adi 08/02/19 11:05 Aerobic Blood Culture - Preliminary Blood - Venous - Lab Draw NO GROWTH AFTER 4 DAYS Anaerobic Blood Culture - Preliminary NO GROWTH AFTER 4 DAYS 08/02/19 10:50 Aerobic Blood Culture - Preliminary Blood - Venous NO GROWTH AFTER 4 DAYS Anaerobic Blood Culture - Preliminary NO GROWTH AFTER 4 DAYS Med Orders - Current: Current Medications Acetaminophen (Tylenol) 650 mg PO Q6H PRN PRN Reason: fever/pain Last Admin: 08/04/19 13:26 Dose: 650 mg Albuterol/Ipratropium (Duoneb 3.0-0.5 Mg/3 Ml) 3 ml NEB Q4HRRT PRN PRN Reason: Dyspnea Last Admin: 08/05/19 10:32 Dose: 3 ml Docusate Sodium (Colace) 100 mg PO DAILY PRN PRN Reason: Constipation Heparin Sodium (Porcine) (Heparin Sodium) 5,000 units SUBCUT Q8H JAZMIN Last Admin: 08/07/19 02:46 Dose: Not Given Hydromorphone HCl (Dilaudid) 4 mg PO Q4H PRN PRN Reason: Pain Last Admin: 08/07/19 06:32 Dose: 4 mg Insulin Aspart (Novolog) 0 unit SUBCUT TIDAC [facility]; Protocol Last Admin: 08/07/19 06:34 Dose: Not Given Insulin Glargine (Lantus Solostar) 40 units SUBCUT BEDTIME [facility] Last Admin: 08/06/19 21:11 Dose: 40 units Levofloxacin (Levaquin) 750 mg PO Q24H [facility] Last Admin: 08/07/19 08:39 Dose: 750 mg Linezolid (Zyvox) 600 mg PO Q12H [facility] Last Admin: 08/07/19 08:45 Dose: Not Given Lisinopril (Prinivil) 20 mg PO DAILY [facility] Last Admin: 08/07/19 08:39 Dose: 20 mg Nicotine (Habitrol) 14 mg TRDERM DAILY [facility] Last Admin: 08/07/19 08:40 Dose: 14 mg Pantoprazole Sodium (Protonix) 40 mg PO ACBREAKFAST [facility] Last Admin: 08/07/19 06:33 Dose: 40 mg Polyethylene Glycol (Miralax) 17 gm PO TID PRN PRN Reason: Constipation Tamsulosin HCl (Flomax) 0.4 mg PO BIDPC [facility] Last Admin: 08/07/19 08:38 Dose: 0.4 mg Temazepam (Restoril) 15 mg PO BEDTIME PRN PRN Reason: Insomnia Last Admin: 08/06/19 23:19 Dose: 15 mg Discontinued Medications Acetaminophen (Tylenol) 975 mg PO DAILY ONE Stop: 07/31/19 04:09 Last Admin: 07/31/19 04:13 Dose: 975 mg Amoxicillin/Clavulanate Potassium (Augmentin 875 Mg/125 Mg) 1 tab PO Q12HR [facility] Last Admin: 08/05/19 08:12 Dose: 1 tab Azithromycin (Zithromax) 500 mg PO Q24H [facility] Last Admin: 08/05/19 08:09 Dose: 500 mg Heparin Sodium (Porcine) (Heparin Sodium) 5,000 units SUBCUT Q8H [facility] Last Admin: 08/01/19 11:10 Dose: 5,000 units Hydromorphone HCl (Dilaudid) 0.5 mg IVPUSH ONETIME ONE Stop: 07/31/19 08:28 Last Admin: 07/31/19 11:45 Dose: Not Given Hydromorphone HCl (Dilaudid) 1 mg IVPUSH ONETIME ONE Stop: 07/31/19 09:10 Last Admin: 07/31/19 11:45 Dose: Not Given Hydromorphone HCl (Dilaudid) 2 mg IVPUSH ONETIME ONE Stop: 07/31/19 09:10 Last Admin: 07/31/19 09:28 Dose: 1 mg Hydromorphone HCl (Dilaudid) 2 mg IVPUSH Q4H PRN PRN Reason: Pain Last Admin: 08/03/19 10:30 Dose: 2 mg Sodium Chloride (Normal Saline) 1,000 mls @ 999 mls/hr IV .Bolus ONE Stop: 07/31/19 05:10 Last Infusion: 07/31/19 04:15 Dose: Infused Sodium Chloride (Normal Saline) 1,000 mls @ 999 mls/hr IV .Bolus ONE Stop: 07/31/19 05:11 Last Admin: 07/31/19 04:16 Dose: 999 mls/hr Cefepime HCl 1 gm/ Premix 50 mls @ 100 mls/hr IV ONETIME ONE Stop: 07/31/19 04:58 Last Admin: 07/31/19 05:04 Dose: 100 mls/hr Levofloxacin/Dextrose 750 mg/ (Premix) 150 mls @ 100 mls/hr IV ONETIME ONE Stop: 07/31/19 05:58 Last Admin: 07/31/19 04:50 Dose: 100 mls/hr Vancomycin HCl 1.5 gm/ Premix 300 mls @ 300 mls/hr IV ONETIME ONE Stop: 07/31/19 05:59 Last Admin: 07/31/19 05:04 Dose: 300 mls/hr Lactated Ringer's (Ringers, Lactated) 1,000 mls @ 125 mls/hr IV ASDIRECTED [facility] Last Admin: 07/31/19 19:43 Dose: 125 mls/hr Lactated Ringer's (Ringers, Lactated) 1,000 mls @ 999 mls/hr IV BOLUS ONE Stop: 07/31/19 07:42 Last Admin: 07/31/19 06:56 Dose: 999 mls/hr Vancomycin HCl 1.25 gm/ Sodium (Chloride) 250 mls @ 166.667 mls/hr IV Q12H [facility] Levofloxacin/Dextrose 750 mg/ (Premix) 150 mls @ 100 mls/hr IV Q24H [facility] Last Admin: 08/04/19 08:01 Dose: Not Given Cefepime HCl 2 gm/ Premix 50 mls @ 100 mls/hr IV Q8H [facility] Last Admin: 08/04/19 14:39 Dose: Not Given Lactated Ringer's (Ringers, Lactated) 1,000 mls @ 999 mls/hr IV .BOLUS ONE Stop: 07/31/19 08:57 Last Admin: 07/31/19 08:33 Dose: 999 mls/hr Norepinephrine Bitartrate (Norepinephr-0.9% Nacl 4 Mg/250) 4 mg in 250 mls @ 7.5 mls/hr IV TITRATE [facility]; Protocol Last Titration: 07/31/19 14:14 Dose: 0 mcg/min, 0 mls/hr Sodium Chloride (Normal Saline) 500 mls @ 999 mls/hr IV ONETIME ONE Stop: 07/31/19 09:28 Vancomycin HCl 1.25 gm/ Sodium (Chloride) 250 mls @ 166.667 mls/hr IV Q12H [facility] Last Admin: 08/01/19 18:14 Dose: 166.667 mls/hr Pantoprazole Sodium 40 mg/ (Sodium Chloride) 10 mls @ 300 mls/hr IV Q24H [facility] Last Admin: 08/04/19 14:40 Dose: Not Given Magnesium Sulfate 2 gm/ Premix 50 mls @ 25 mls/hr IV ONETIME ONE Stop: 08/01/19 09:26 Last Admin: 08/01/19 07:38 Dose: 25 mls/hr Vancomycin HCl 1.25 gm/ Sodium (Chloride) 250 mls @ 166.667 mls/hr IV Q8H [facility] Last Admin: 08/04/19 14:40 Dose: Not Given Magnesium Sulfate 4 gm/ Premix 100 mls @ 33.333 mls/hr IV ONETIME ONE Stop: 08/02/19 14:55 Last Admin: 08/02/19 13:34 Dose: 33.333 mls/hr Magnesium Sulfate 2 gm/ Premix 50 mls @ 50 mls/hr IV ONETIME ONE Stop: 08/03/19 09:00 Last Admin: 08/03/19 13:10 Dose: 50 mls/hr Magnesium Sulfate 4 gm/ Premix 100 mls @ 33.333 mls/hr IV ONETIME ONE Stop: 08/04/19 10:48 Last Admin: 08/04/19 08:18 Dose: Not Given Ibuprofen (Motrin) 800 mg PO ONETIME ONE Stop: 07/31/19 04:08 Last Admin: 07/31/19 04:14 Dose: 800 mg Insulin Aspart (Novolog) 0 unit SUBCUT TIDAC JAZMIN; Protocol Last Admin: 08/03/19 13:36 Dose: 3 unit Insulin Glargine (Lantus Solostar) 15 units SUBCUT BEDTIME JAZMIN Last Admin: 08/01/19 22:54 Dose: 15 units Insulin Glargine (Lantus Solostar) 20 units SUBCUT BEDTIME JAZMIN Last Admin: 08/02/19 20:45 Dose: 20 unit Insulin Glargine (Lantus Solostar) 28 units SUBCUT BEDTIME JAZMIN Last Admin: 08/03/19 20:51 Dose: 28 units Insulin Glargine (Lantus Solostar) 35 units SUBCUT BEDTIME JAZMIN Iopamidol (Isovue Multipack-370 (76%)) 50 ml IVPUSH ONETIME STA Stop: 08/01/19 12:23 Last Admin: 08/01/19 12:23 Dose: 50 ml Ketorolac Tromethamine (Toradol) 15 mg IVPUSH Q4H PRN PRN Reason: Pain Stop: 08/05/19 06:50 Ketorolac Tromethamine (Toradol) 30 mg IVPUSH Q6H PRN PRN Reason: Pain Last Admin: 08/03/19 03:39 Dose: 30 mg Ketorolac Tromethamine (Toradol) 30 mg IVPUSH Q6H PRN PRN Reason: Pain Lidocaine (Xylocaine-Mpf 2%) Confirm Administered Dose 5 ml .ROUTE .STK-MED ONE Stop: 07/31/19 08:55 Last Admin: 07/31/19 09:37 Dose: 5 ml Lisinopril (Prinivil) 20 mg PO ONETIME ONE Stop: 08/01/19 23:01 Last Admin: 08/01/19 22:55 Dose: 20 mg Lorazepam (Ativan) 1 mg IVPUSH Q8H PRN PRN Reason: Anxiety Last Admin: 08/01/19 19:31 Dose: 1 mg Lorazepam (Ativan) 1 mg IVPUSH Q6H PRN PRN Reason: Anxiety Last Admin: 08/03/19 08:14 Dose: 1 mg Magnesium Oxide (Magnesium Oxide) 400 mg PO ONETIME ONE Stop: 08/04/19 08:05 Last Admin: 08/04/19 08:52 Dose: 400 mg Midodrine (Midodrine) 5 mg PO TIDAC JAZMIN Last Admin: 08/01/19 12:34 Dose: Not Given Morphine Sulfate (Morphine) 4 mg IVPUSH Q4H PRN PRN Reason: Pain Last Admin: 07/31/19 12:03 Dose: 4 mg Naloxone HCl (Narcan) 0.4 mg IVPUSH ASDIRECTED PRN PRN Reason: narcotic overdose Potassium Chloride (Klor-Con M20) 40 meq PO ONETIME ONE Stop: 08/02/19 11:55 Last Admin: 08/02/19 12:40 Dose: 40 meq Sodium Chloride (Saline Flush) 10 ml FLUSH ASDIRECTED PRN PRN Reason: Keep Vein Open Last Admin: 07/31/19 04:16 Dose: 10 ml Sodium Chloride (Saline Flush) 2.5 ml FLUSH ASDIRECTED PRN PRN Reason: Keep Vein Open Last Admin: 07/31/19 04:16 Dose: 2.5 ml Sodium Chloride (Normal Saline) 10 ml IV ASDIRECTED PRN PRN Reason: IV Use Tamsulosin HCl (Flomax) 0.4 mg PO ONETIME ONE Stop: 07/31/19 16:27 Last Admin: 07/31/19 17:17 Dose: Not Given Vancomycin HCl (Vancomycin) 1,500 mg IV ONETIME ONE Stop: 07/31/19 04:34 Last Admin: 07/31/19 05:21 Dose: Not Given Vancomycin HCl (Pharmacy To Dose - Vancomycin) 1 dose .XX ASDIRECTED JAZMIN - Exam General: Reports: Alert, Oriented, Cooperative, No Acute Distress Lungs: Reports: Clear to Auscultation, Normal Respiratory Effort. Denies: Wheezing Cardiovascular: Reports: Regular Rate, Regular Rhythm GI/Abdominal Exam: Normal Bowel Sounds, Soft, Non-Tender Back Exam: Reports: Normal Inspection, Full Range of Motion Extremities: Normal Inspection, Normal Range of Motion, Non-Tender Wound/Incisions: Reports: No Drainage. Denies: Erythema Psy/Mental Status: Reports: Alert, Normal Mood
== END 2019-08-07 11:20 | disposition home or self-care (01) | DRG 871 ==
LOC: MW.ED 03:46 → MW.MS 04:49 → MW.ICU 09:51 → MW.MS 08-03 08:12
PROVIDERS: ADMIT Student in an Organized Health Care Education/Training Program; ATTEND Student in an Organized Health Care Education/Training Program
PROC: 03HY32Z Insertion of Monitoring Device into Upper Artery, Percutaneous Approach (ICD-10-PCS; principal; 2019-07-31)
PROC: 02HV33Z Insertion of Infusion Device into Superior Vena Cava, Percutaneous Approach (ICD-10-PCS; 2019-07-31)
PROC: B548ZZA Ultrasonography of Superior Vena Cava, Guidance (ICD-10-PCS; 2019-07-31)
DX: A41.9 Sepsis, unspecified organism (principal); J15.212 Pneumonia due to Methicillin resistant Staphylococcus aureus; J96.01 Acute respiratory failure with hypoxia; R65.21 Severe sepsis with septic shock; G92 Toxic encephalopathy; J69.0 Pneumonitis due to inhalation of food and vomit; F11.20 Opioid dependence, uncomplicated; E11.621 Type 2 diabetes mellitus with foot ulcer; L97.509 Non-pressure chronic ulcer of other part of unspecified foot with unspecified severity; E83.42 Hypomagnesemia; J18.9 Pneumonia, unspecified organism; G89.29 Other chronic pain; H54.7 Unspecified visual loss; I10 Essential (primary) hypertension; K21.9 Gastro-esophageal reflux disease without esophagitis; F41.9 Anxiety disorder, unspecified; E11.9 Type 2 diabetes mellitus without complications; Z98.890 Other specified postprocedural states; Z87.891 Personal history of nicotine dependence; F25.9 Schizoaffective disorder, unspecified; Z90.49 Acquired absence of other specified parts of digestive tract; Z79.2 Long term (current) use of antibiotics; Z88.8 Allergy status to other drugs, medicaments and biological substances; Z99.81 Dependence on supplemental oxygen; Z79.4 Long term (current) use of insulin; Z79.899 Other long term (current) drug therapy
CPT/HCPCS: 36415; 36569; 70450; 71045; 80053; 80074; 80076; 83605; 85025; 85610; 87040 ×2; 87389; 87804 ×2; 96360; 99291; A9270 ×2; J7030 ×2; 36620; 71250; 71250-26; 71275; 71275-26; 73700-26-LT; 73700-LT; 80048; 80202; 80305-QW; 81001; 81003; 82140; 82962; 83735; 84145; 84484; 86140; 87070; 87077; 87186; 87205; 93005; 93306; 94640; 94667; 99284; C9113; J0692; J1170; J1644; J1815-GY; J1885; J1956; J2001; J2060; J2270; J3370; J3475; J7050; J7120; J7620-GY; Q9967